=== PATIENT | male | born 1930 | race Caucasian/White ===

== ENCOUNTER 2018-06-01 05:14 | Day surgery (SDC) | payer MEDICARE ==
[2018-05-31 11:24] VITALS: BMI 22.8
[2018-06-01 09:00] VITALS: TEMP 97.9
[2018-06-01 11:54] VITALS: BP 130/91; PULSE 63
[2018-06-01 12:27] LABS: INR 1.23 (0.83-1.09); PROTHROMBIN TIME (PATIENT) 14.6 SEC (9.7-13.0)
--- NOTE | 2018-06-04 16:52 | PATH ---
Surgical Pathology Report Patient Name: PRINCE BLANK [facility]. Rec. #: [id number] /Age/Gender: 1930 (Age: 87) / M Account: [id number] Location: U-ENDOSCOPY Taken: 06/01/2018 Received: 06/01/2018 Reported: 06/04/2018 Physicians: Nelson England M.D. Specimen(s) Received A: BX 2ND DUODENUM AND DUODENAL BULB B: BX ANTRUM C: BX PROXIMAL TRANSVERSE COLON POLYPS D: BX ILEOCECAL VALVE POLYP Clinical History Weight loss, occult bleeding, colon cancer screening Postoperative diagnosis: Hiatal hernia, AVM, multiple colon polyps Final Diagnosis A. SECOND PORTION DUODENUM AND DUODENUM BULB, BIOPSY: DUODENUM MUCOSA WITH NONSPECIFIC CHRONIC DUODENITIS. B. ANTRUM, BIOPSY: GASTRIC MUCOSA WITH REACTIVE GASTROPATHY. IMMUNOSTAIN FOR H. PYLORI IS NEGATIVE. NEGATIVE FOR INTESTINAL METAPLASIA. C. PROXIMAL TRANSVERSE COLON POLYPS, POLYPECTOMY: TUBULAR ADENOMA, MULTIPLE. D. ILEOCECAL VALVE POLYP, BIOPSY: TUBULOVILLOUS ADENOMA. NO HIGH GRADE DYSPLASIA IN THIS MATERIAL. Electronically Signed Hoa Win M.D. Gross Description A. Received in formalin, labeled "biopsy second portion of duodenum and duodenal bulb" are 2 buckner, irregular portions of soft tissue averaging 0.2 cm. in greatest dimension. The specimens are submitted in toto in one cassette. B. Received in formalin, labeled "biopsy antrum" are 2 buckner, irregular portions of soft tissue averaging 0.4 cm. in greatest dimension. The specimens are submitted in toto in one cassette. C. Received in formalin labeled "biopsy proximal transverse colon polyps," is a 0.9 x 0.7 x 0.2 cm aggregate of buckner soft tissue fragments. The formalin is filtered and the specimen is entirely submitted in one cassette. D. Received in formalin, labeled "biopsy ileocecal valve" are 3 buckner, irregular portions of soft tissue ranging from 0.1-0.5 cm. in greatest dimension. The specimens are submitted in toto in one cassette. DL06/01/2018 saudi06/01/2018
== END 2018-06-01 11:52 | disposition home or self-care (01) ==
LOC: JASU-ENDO 05:14
PROVIDERS: ATTEND Internal Medicine Gastroenterology
PROC: 0DBE8ZX Excision of Large Intestine, Via Natural or Artificial Opening Endoscopic, Diagnostic (ICD-10-PCS; 2018-06-01)
PROC: 0DBL8ZX Excision of Transverse Colon, Via Natural or Artificial Opening Endoscopic, Diagnostic (ICD-10-PCS; 2018-06-01)
PROC: 0DBE8ZX Excision of Large Intestine, Via Natural or Artificial Opening Endoscopic, Diagnostic (ICD-10-PCS; 2018-06-01)
PROC: 3E0H8GC Introduction of Other Therapeutic Substance into Lower GI, Via Natural or Artificial Opening Endoscopic (ICD-10-PCS; 2018-06-01)
PROC: 0DB68ZX Excision of Stomach, Via Natural or Artificial Opening Endoscopic, Diagnostic (ICD-10-PCS; 2018-06-01)
PROC: 0DBC8ZX Excision of Ileocecal Valve, Via Natural or Artificial Opening Endoscopic, Diagnostic (ICD-10-PCS; principal; 2018-06-01 08:00)
DX: Z12.11 Encounter for screening for malignant neoplasm of colon (principal); D12.6 Benign neoplasm of colon, unspecified; D12.3 Benign neoplasm of transverse colon; K57.30 Diverticulosis of large intestine without perforation or abscess without bleeding; K64.8 Other hemorrhoids; K92.1 Melena; K29.80 Duodenitis without bleeding; K44.9 Diaphragmatic hernia without obstruction or gangrene
CPT/HCPCS: 36415; 82378; 82728; 85044; 85610; 86140; 88305-TC; 88342-TC

== ENCOUNTER 2019-02-01 14:46 | Inpatient (IN) | payer MEDICARE ==
[2019-02-01 15:33] VITALS: BMI 21.2
--- NOTE | 2019-02-01 15:33 | PDOC ---
Attending Attestation - Resident Resident Name: Benji Lopez - ED Attending Attestation I have performed the following: I have examined & evaluated the patient, The case was reviewed & discussed with the resident, I agree w/resident's findings & plan, Exceptions are as noted - HPI HPI: 02/01/19 17:36 Mr. Yeung is a didi 88yo man with PMH R leg stent, HTN, Arthritis (on prednisone) presenting with a complaint of severe back pain s/p mechanical fall from standing 2 days ago. Pt is ambulatory with the assistance of a walker and while walking, his walker got stuck and he fell to the ground landing on his right side He has been unable to walk since 2/2 the pain. Pain is severe, on the right lower back, rated 10/10, does not improve with Tylenol Denies hitting his head or LOC - Physicial Exam PE: 02/01/19 17:39 Gen: WDWN elderly man, appears stated age, laying in stretcher HEENT: PERRL, MMM, EOMI, NCAT, small abrasion on right face near eye CV: RRR, nl s1/s2, no murmurs / rubs / gallops Pulm: CTABL, normal WOB, no pain with breathin Abd: soft, nontender, nondistended Ext: WWP, no clubbing / cyanosis / edema MSK: 5+ strength UE/LE, no pain with straight leg raise to 60 degrees Back: posterior rib pain Neuro: normal sensation throughout including b/l LE, CN grossly intact, alert and oriented - Medical Decision Making 02/01/19 17:35 Laboratory Tests 02/01/19 02/01/19 02/01/19 16:35 16:35 16:35 WBC 8.7 Hgb 11.4 L Hct 34.7 L Plt Count 266 INR 3.43 H Anion Gap 6 L BUN 22.4 H Creatinine 1.1 Urine Blood Urine Nitrite Ur Leukocyte Esterase 02/01/19 17:00 WBC Hgb Hct Plt Count INR Anion Gap BUN Creatinine Urine Blood Negative Urine Nitrite Negative Ur Leukocyte Esterase Negative EKG - NSR rate of 66 bpm, LBBB CT pending Signed out to overnight team
[2019-02-01] MEDS ORDERED: morphine CARPU-JECT 4 MG/1 ML DISP.SYRIN IVPUSH ONE (15:40)
--- NOTE | 2019-02-01 15:51 | PDOC ---
History of Present Illness - General Chief Complaint: Injury Stated Complaint: FALL Time Seen by Provider: 02/01/19 15:12 History Source: Patient, Friend Exam Limitations: No Limitations - History of Present Illness Initial Comments: 02/01/19 15:44 Source: Pt and friend HPI: 88yo man with PMH R leg stent, HTN, Arthritis presenting s/p mechanical fall from standing 40 hours ago. Pt ambulates with a walker, was moving into his bedroom two nights ago when his walker got caught and he well to the ground landing on his right flank. Reports the he has been unable to walk since 2/2 the pain. Has not left the house since the injury. Pain is severe, on the right lower back, and has poorly responded to Tylenol. Of note, patient has been on prednisone for the past 2 years for his arthritis. Denies urinary or fecal incontinence, no numbness or tingling, no weakness, no sensory deficits / saddle anesthesia. Denies hitting his head or LOC, however he does have an abrasion on the right side of his face that occurred during the fall. All: KNDA, reports that he felt ill when using codeine after a dental procedure , denies anaphylaxis Meds: - Coumadin - Atorvastatin - Prednisone 15mg PMH: as above PSH: denies SHx: denies smoking, drinking, illicits, lives at home with his Past History - Travel Traveled outside of the country in the last 30 days: No Close contact w/someone who was outside of country & ill: No - Past Medical History Allergies/Adverse Reactions: Allergies Allergy/AdvReac Type Severity Reaction Status Date / Time codeine AdvReac Nausea Verified 02/01/19 15:22 Home Medications: Ambulatory Orders Nebivolol HCl [Bystolic] 5 mg PO DAILY 10/01/14 predniSONE [Deltasone -] 15 mg PO AM 10/01/14 Atorvastatin Ca [Lipitor] 20 mg PO HS 03/25/16 Cholecalciferol (Vitamin D3) [Vitamin D3 -] 1,000 unit PO DAILY 03/25/16 Zinc 1 tab PO DAILY 05/31/18 Docusate Sodium [Stool Softener] 100 mg PO BID 02/01/19 Warfarin Na [Coumadin] 2.5 mg PO DAILY@1800 02/01/19 Anemia: No Asthma: No 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) Cardiac Disorders: Yes (SOB ON EXERTION/SEEN BY CARDIO RECENTLY) CVA: No COPD: Yes (USES O2 PRN DURING EXERCISE) CHF: No Dementia: No Diabetes: No GI Disorders: No Disorders: Yes (PROSTATE DIAG X 3 MONTHS AGO) HTN: Yes Hypercholesterolemia: Yes Liver Disease: No Seizures: No Thyroid Disease: No - Surgical History Abdominal Surgery: No Appendectomy: No Cardiac Surgery: No Cholecystectomy: No Lung Surgery: No Neurologic Surgery: No Orthopedic Surgery: No - Suicide/Smoking/Psychosocial Hx Smoking History: Unknown if ever smoked Have you smoked in the past 12 months: No Information on smoking cessation initiated: No Hx Alcohol Use: No Drug/Substance Use Hx: No Substance Use Type: Alcohol Hx Substance Use Treatment: No Review of Systems - Review of Systems Able to Perform ROS?: Yes Is the patient limited Maori proficient: No Constitutional: No: Chills, Fever, Weakness HEENTM: No: Eye Pain, Nose Congestion, Throat Pain, Throat Swelling, Mouth Pain Respiratory: No: Cough, Shortness of Breath, Wheezing Cardiac (ROS): No: Chest Pain, Irregular Heart Rate, Palpitations, Syncope, Chest Tightness ABD/GI: No: Abdominal Distended, Constipated, Diarrhea, Nausea, Poor Appetite, Poor Fluid Intake, Vomiting : No: Burning, Dysuria, Discharge, Frequency, Flank Pain Musculoskeletal: Yes: See HPI, Back Pain, Muscle Pain. No: Muscle Weakness Integumentary: No: Bruising, Change in Hair/Nails, Dryness, Erythema, Pruritus, Rash Neurological: No: Headache, Numbness, Paresthesia, Tingling, Weakness Psychiatric: No: Anxiety, Depression, Emotional Problems Endocrine: No: Excessive Sweating, Flushing, Intolerance to Cold, Intolerance to Heat Hematologic/Lymphatic: No: Anemia, Blood Clots, Easy Bleeding All Other Systems: Reviewed and Negative *Physical Exam - Vital Signs Last Vital Signs Temp Pulse Resp BP Pulse Ox 97.4 F L 60 16 161/76 100 02/01/19 14:50 02/01/19 14:50 02/01/19 14:50 02/01/19 14:50 02/01/19 14:50 - Physical Exam Comments: 02/01/19 15:54 Vitals reviewed, notable for hypertension, otherwise stable Gen: WDWN elderly man, appears stated age, laying in stretcher HEENT: PERRL, MMM, EOMI, NCAT, small abrasion on right face near eye CV: RRR, nl s1/s2, no murmurs / rubs / gallops Pulm: CTABL, normal WOB, no pain with breathing, no wheezes / rales / rhonchi Abd: soft, nontender, nondistended Ext: WWP, no clubbing / cyanosis / edema Pulses: 2+ radial and PT MSK: 5+ strength UE/LE, no pain with straight leg raise to 60 degrees Back: exam deferred until attending present and pain controlled Neuro: normal sensation throughout including b/l LE, CN grossly intact, alert and oriented ED Treatment Course - LABORATORY CBC & Chemistry Diagram: 02/01/19 16:35 02/01/19 16:35 Medical Decision Making - Medical Decision Making 02/01/19 15:57 88yo man with PMH R leg stent, HTN, Arthritis presenting s/p mechanical fall from standing 40 hours ago. History reassuring for lack of neurologic symptoms, concerning for inability to ambulate and poor pain control with tylenol, prolonged steroid use. Exam notable for no neurologic abnormalities, negative straight leg raise test. Together concerning for fracture vs muscle spasm / sprain / tear. -Morphine 4mg for pain control -CBC, CMP, CP -EKG -Non-contrast: Head, C-Spine, Chest, Abdomen, Pelvis 02/01/19 17:20 -Patient responded well to morphine -On exam of the back: tenderness to palpation of right lower ribs, no midline spinal tenderness, no paraspinal tenderness, no overlying bruising or ecchymosis -EKG with new LBBB from prior, patient without any chest pain now or recently -Troponin 0.03 -No leukocytosis or metabolic derangements -Patient discloses cancer history "All of the cancers" history of skin cancer, current workup for questionable bladder mass 02/01/19 19:00 -Patient reports pain is returning, unable to ambulate following CT - difficulty moving onto scanner -Admit for: inability to ambulate, intractable back pain -Ready for admission pending CT results, reached out to inpatient team -Pt signed out to Dr. Martin *DC/Admit/Observation/Transfer Diagnosis at time of Disposition: Intractable back pain - Discharge Dispostion Condition at time of disposition: Guarded - Referrals - Patient Instructions - Post Discharge Activity
[2019-02-01 16:46] LABS: BASO % 0.4 % (0-2.0); EOS % 0.4 % (0-4.5); HEMATOCRIT 34.7 % (35.4-49); HEMOGLOBIN 11.4 GM/dL (11.7-16.9); LYMPH % 6.6 % (8-40); MCH 29.5 pg (25.7-33.7); MCHC 32.8 g/dl (32.0-35.9); MEAN CELL VOLUME 90.1 fl (80-96); MEAN PLT VOLUME 7.5 fl (7.5-11.1); MONO % 4.1 % (3.8-10.2); NEUT % 88.5 % (42.8-82.8); PLATELET COUNT 266 K/MM3 (134-434); RBC 3.85 M/mm3 (4.00-5.60); RDW 17.7 % (11.9-15.9); WHITE BLOOD COUNT 8.7 K/mm3 (4.0-10.0)
[2019-02-01] MEDS ORDERED: morphine SULFATE 4 MG/ML VIAL ONE (16:50)
[2019-02-01 17:12] LABS: PH,URINE 6.5 (5.0-8.0); URINE APPEARANCE CLEAR; URINE BILIRUBIN NEGATIVE (NEGATIVE); URINE COLOR YELLOW; URINE GLUCOSE (UA) NEGATIVE (NEGATIVE); URINE KETONE NEGATIVE (NEGATIVE); URINE LEUK ESTERASE NEGATIVE (NEGATIVE); URINE NITRITE NEGATIVE (NEGATIVE); URINE PROTEIN NEGATIVE (NEGATIVE); URINE UROBILINOGEN 0.2 mg/dL (0.2-1.0)
[2019-02-01 17:14] LABS: INR 3.43 (0.83-1.09)
[2019-02-01 17:21] LABS: ALBUMIN 3.1 g/dl (3.4-5.0); BILIRUBIN,TOTAL 0.8 mg/dL (0.2-1); BLOOD UREA NITROGEN 22.4 mg/dL (7-18); CREATININE 1.1 mg/dL (0.55-1.3); TOT PROT 6.8 g/dl (6.4-8.2)
[2019-02-01 17:22] LABS: POTASSIUM 4.2 mmol/L (3.5-5.1)
--- NOTE | 2019-02-01 19:19 | PN ---
Teaching Attending Note Name of Resident: Filiberto Garay ATTENDING PHYSICIAN STATEMENT I saw and evaluated the patient. I reviewed the resident's note and discussed the case with the resident. I agree with the resident's findings and plan as documented. SUBJECTIVE: Patient is an 88 year old man with PMH of Right leg stent, HTN, Arthritis (on prednisone), ?Aortic valve replacement (on coumadin) presenting with a complaint of severe back pain after a mechanical fall from standing 2 days ago. Patient is ambulatory with the assistance of a walker and while walking, his walker got stuck and he fell to the ground landing on his right side. He has been unable to walk since due to the pain. Pain is severe, on the right lower back, rated 10/10, does not improve with Tylenol. Denies hitting his head or LOC. Of note, patient has been on prednisone for the past 2 years for his arthritis. Denies urinary or fecal incontinence, no numbness or tingling, no weakness, no sensory deficits/saddle anesthesia. He has an abrasion on the right side of his face that occurred during the fall. OBJECTIVE: Alert Vital Signs Period Temp Pulse Resp BP Sys/Scott Pulse Ox Last 24 Hr 97.4 F-97.5 F 60-62 16-20 161-192/76-86 97-100 HEENT: No Jaundice, eye redness or discharge, PERRLA, EOMI. Normocephalic, abrasion right side of face. External ears are normal and hearing is grossly intact. No nasal discharge. Neck: Supple, nontender. No palpable adenopathy or thyromegaly. No JVD Chest: Good effort. Clear to auscultation. Right lateral lower chest tenderness. Heart: Regular. No S3, rub or murmur Abdomen: Not distended, soft, right flank tenderness and no HSM. No rebound or guarding. Normal bowel sounds. Ext: Peripheral pulses intact. No leg edema. Skin: Warm and dry. No petechiae, rash or ecchymosis. Neuro: Alert. Oriented x3. CN 2-12 grossly intact. Sensation grossly intact in all four extremities and DTR are symmetric. Ambulates with assistance. Psych: Appropriate mood and affect. Good insight. Home Medications Medication Instructions Recorded Nebivolol HCl [Bystolic] 5 mg PO DAILY 10/01/14 predniSONE [Deltasone -] 15 mg PO AM 10/01/14 Atorvastatin Ca [Lipitor] 20 mg PO HS 03/25/16 Cholecalciferol (Vitamin D3) 1,000 unit PO DAILY 03/25/16 [Vitamin D3 -] Zinc 1 tab PO DAILY 05/31/18 Docusate Sodium [Stool Softener] 100 mg PO BID 02/01/19 Warfarin Na [Coumadin] 2.5 mg PO DAILY@1800 02/01/19 Abnormal Lab Results 02/01/19 02/01/19 02/01/19 16:35 16:35 16:35 RBC 3.85 L Hgb 11.4 L Hct 34.7 L RDW 17.7 H Neutrophils % 88.5 H D Lymphocytes % 6.6 L D PT with INR 41.00 H INR 3.43 H Anion Gap 6 L BUN 22.4 H Random Glucose 109 H Albumin 3.1 L ASSESSMENT AND PLAN: 1. 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 No acute pathology on head and C -spine CT. Will use IV morphine and lidocaine patch to control rib fracture pain , do incentive spirometry, consult PT and Ortho. Implement fall precautions. Will continue comprehensive care of all his comorbid conditions including coumadin for artificial aortic valve. 2. Hypoalbuminemia - Possibly due to combined effects of malnutrition and inflammation associated with comorbid chronic conditions. Will ensure adequate dietary protein intake and also consult nuclear worker technician. 3. Anemia - Cause unclear. Will do basic anemia work up including serial stool guaiacs, reticulocyte count and iron studies. 4. Uncontrolled hypertension - Likely exacerbated by pain and prednisone. Will add HCTZ 12.5 mg q am and give Bystolic 5mg at night. 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 Nonpharmacologic measures to control hypertension like weight loss, salt restriction and exercise discussed. Importance of adherence to treatment regimen and attainment of normotension emphasized. 5. DVT prophylaxis - On coumadin 6. Advance directives - Full code
[2019-02-01] MEDS ORDERED: MORPHINE SULFATE 2 MG/ML VIAL IVPUSH PRN (21:15)
--- NOTE | 2019-02-01 21:39 | HP ---
CHIEF COMPLAINT: R side pain PCP: Dr. Haro HISTORY OF PRESENT ILLNESS: Patient is an 88 yo M with a PMHx of Polymyalgia rhematica (15mg Prednisone), COPD (on PRN o2), s/p Aortic valve replacement (on Coumadin), s/p pacemaker placement, presenting to the ED because of a mechanical fall that occurred on Monday (01/30) morning. Patient said he has had multiple falls over the last year from feeling weak and clumsy. He denies symptoms prior to the fall, including dizziness, chest pain, loc, numbness, tingling. He said since the fall , he's had R sided Flank pain/lower back pain. Says tylenol did not help. He also says he has a hard time ambulating since the fall. He walks with a walker. 4mg of morphine was given and patient felt some relief. Patient fell and hit his head. denies LOC. Denies fevers,chills, nausea, vomiting,chest pain. Head CT in the ER was unremarkable. C-spine CT unremarkable. Patient was found to have R 7,8, and [address] Recent Travel: denies PAST MEDICAL HISTORY: per HPI Social History: Smoking: denies Alcohol: denies Drugs: denies Family History: Allergies codeine Adverse Reaction (Verified 02/01/19 15:22) Nausea HOME MEDICATIONS: Home Medications Medication Instructions Recorded Nebivolol HCl [Bystolic] 5 mg PO DAILY 10/01/14 predniSONE [Deltasone -] 15 mg PO AM 10/01/14 Atorvastatin Ca [Lipitor] 20 mg PO HS 03/25/16 Cholecalciferol (Vitamin D3) 1,000 unit PO DAILY 03/25/16 [Vitamin D3 -] Zinc 1 tab PO DAILY 05/31/18 Docusate Sodium [Stool Softener] 100 mg PO BID 02/01/19 Warfarin Na [Coumadin] 2.5 mg PO DAILY@1800 02/01/19 REVIEW OF SYSTEMS CONSTITUTIONAL: Absent: fever, chills, diaphoresis, generalized weakness, malaise, loss of appetite, weight change HEENT: Absent: rhinorrhea, nasal congestion, throat pain, throat swelling, difficulty swallowing, mouth swelling, ear pain, eye pain, visual changes CARDIOVASCULAR: Absent: chest pain, syncope, palpitations, irregular heart rate, lightheadedness , peripheral edema RESPIRATORY: sob at baseline Absent: cough, dyspnea with exertion, orthopnea, wheezing, stridor, hemoptysis GASTROINTESTINAL: Absent: abdominal pain, abdominal distension, nausea, vomiting, diarrhea, constipation, melena, hematochezia GENITOURINARY: Absent: dysuria, frequency, urgency, hesitancy, hematuria, flank pain, genital pain MUSCULOSKELETAL: Absent: myalgia, arthralgia, joint swelling, back pain, neck pain NEUROLOGIC: Absent: headache, focal weakness or paresthesias, dizziness, unsteady gait, seizure, mental status changes, bladder or bowel incontinence PHYSICAL EXAMINATION Vital Signs - 24 hr 02/01/19 02/01/19 14:50 19:50 Temperature 97.4 F L 97.5 F L Pulse Rate 60 Pulse Rate [ 62 Right Radial] Respiratory 16 20 Rate Blood Pressure 161/76 Blood Pressure 192/86 H [Left Arm] O2 Sat by Pulse 100 97 Oximetry (%) GENERAL: in nad, watching tv, appears comfortable HEAD: small laceration above R eye near mosque EYES: Pupils equal, round and reactive to light EARS, NOSE, THROAT:oropharynx clear without exudates. Moist mucous membranes. NECK: supple without lymphadenopathy, JVD, or masses. LUNGS: CTA b/l HEART: RRR, No MGR ABDOMEN: Soft, nontender, not distended MUSCULOSKELETAL: R Flank tenderness to palpation. R sided rib tenderness LOWER EXTREMITIES: 2+ pulses, warm, No peripheral edema. NEUROLOGICAL: Cranial nerves II-XII intact. Normal speech. Laboratory Results - last 24 hr 02/01/19 02/01/19 02/01/19 16:35 16:35 16:35 WBC 8.7 RBC 3.85 L Hgb 11.4 L Hct 34.7 L MCV 90.1 MCH 29.5 MCHC 32.8 RDW 17.7 H Plt Count 266 MPV 7.5 Absolute Neuts (auto) 7.7 Neutrophils % 88.5 H D Lymphocytes % 6.6 L D Monocytes % 4.1 Eosinophils % 0.4 D Basophils % 0.4 Nucleated RBC % 0 PT with INR 41.00 H INR 3.43 H Sodium 136 Potassium 4.2 Chloride 102 Carbon Dioxide 28 Anion Gap 6 L BUN 22.4 H Creatinine 1.1 Est GFR (CKD-EPI)AfAm 70.08 Est GFR (CKD-EPI)NonAf 60.46 Random Glucose 109 H Calcium 9.0 Total Bilirubin 0.8 AST 29 ALT 31 Alkaline Phosphatase 72 Creatine Kinase 81 Troponin I 0.03 Total Protein 6.8 Albumin 3.1 L Urine Color Urine Appearance Urine pH Ur Specific [place] Urine Protein Urine Glucose (UA) Urine Ketones Urine Blood Urine Nitrite Urine Bilirubin Urine Urobilinogen Ur Leukocyte Esterase ASSESSMENT/PLAN: 88 yo M with a PMHx of Polymyalgia rhematica (15mg Prednisone), COPD (on PRN o2) , s/p Aortic valve replacement (on Coumadin), presenting to the ED because of a mechanical fall # R sided Rib fractures s/p Mechanical Fall -7,8,10th R Rib fractures -ortho consulted -Incentive spirometer -PT -Morphine 2mg q4h for pain control -Head CT negative -consider repeating Head CT in 24 hours. Patient on Coumadin. #s/p Aortic valve replacement -on warfarin, continue -INR 2.5-3.5? Currently 3.43 #PMR -cont. steroids #HTN -cont. home meds #FEN -no iv fluids -monitor lytes -sodium diet med-rec needed #DVT -on coumadin Visit type - Emergency Visit Emergency Visit: Yes ED Registration Date: 02/01/19 Care time: The patient presented to the Emergency Department on the above date and was hospitalized for further evaluation of their emergent condition. - New Patient This patient is new to me today: Yes Date on this admission: 02/03/19 - Critical Care Critical Care patient: No ATTENDING PHYSICIAN STATEMENT I saw and evaluated the patient. I reviewed the resident's note and discussed the case with the resident. I agree with the resident's findings and plan as documented. SUBJECTIVE: OBJECTIVE: ASSESSMENT AND PLAN:
[2019-02-01] MEDS ORDERED: HEPARIN NA (PORCINE) 5,000 UNITS/ML 1ML VIAL SQ SCH (22:00)
[2019-02-02] MEDS: predniSONE 5 MG TABLET (UD) PO SCH (06:00)
[2019-02-02] MEDS ORDERED: PT OWN MED DRAWER 7, Y5N ONE (09:46)
[2019-02-02] MEDS: CHOLECALCIFEROL (VIT D3) 1,000 UNIT (25 MCG) TABLET PO SCH (09:48)
[2019-02-02] MEDS: NEBIVOLOL 5 MG TABLET (FP) PO SCH (09:48)
[2019-02-02] MEDS ORDERED: DOCUSATE SODIUM 100 MG CAPSULE (FP) PO SCH (10:00)
[2019-02-02 10:16] LABS: BASO % 0.5 % (0-2.0); EOS % 0.6 % (0-4.5); HEMATOCRIT 36.7 % (35.4-49); HEMOGLOBIN 12.1 GM/dL (11.7-16.9); LYMPH % 9.5 % (8-40); MCH 29.5 pg (25.7-33.7); MEAN CELL VOLUME 89.4 fl (80-96); MEAN PLT VOLUME 7.9 fl (7.5-11.1); MONO % 5.8 % (3.8-10.2); NEUT % 83.6 % (42.8-82.8); PLATELET COUNT 271 K/MM3 (134-434); RBC 4.11 M/mm3 (4.00-5.60)
[2019-02-02 10:46] LABS: ALBUMIN 3.3 g/dl (3.4-5.0); BLOOD UREA NITROGEN 21.9 mg/dL (7-18); CALCIUM 9.2 mg/dL (8.5-10.1); MAGNESIUM 2.2 mg/dL (1.8-2.4); POTASSIUM 3.9 mmol/L (3.5-5.1); TOT PROT 7.1 g/dl (6.4-8.2)
--- NOTE | 2019-02-02 12:14 | CONSULT ---
Consult - text type - Consultation Consultation Note: ORTHOPEDIC SURGERY CONSULTATION NOTE Department of Orthopedic Surgery HISTORY OF PRESENT ILLNESS Mr. Yeung is a 88 year old male with PMH of Right leg stent, HTN, Arthritis ( on prednisone), ?Aortic valve replacement (on coumadin) presenting with a complaint of severe back pain after a mechanical fall from standing 2 days ago. Patient is ambulatory with the assistance of a walker at home. He was not using his walker when this incidient occured. He has been unable to walk since due to the pain. Pain is severe, on the right lower back, but improved since admission and pain control. The orthopedic service was consulted for right sided posterior rib fractures.The patient denies any numbness / tingling in his lower extremities. His pain improves with rest. Denies any other injuries. Denies LOC. Denies numbness, tingling or other constitutional complaints. Denies tobacco use, drug use, alcohol abuse. The patient lives with his at home, and uses a walker occasionally as assistive device at baseline. FAMILY HISTORY non-contributory REVIEW OF SYMPTOMS A twelve-point review of systems was performed and was negative except as noted in HPI. PHYSICAL EXAM Constitutional: Alert and oriented to person, place, and time. Appears well- developed and well-nourished. No acute distress, appropriate mood and affect. Superficial abrasion and bruising noted at the patient's right spiritism. Right Upper Extremity: Skin warm, dry, and intact; no lesions, rashes or ulcers noted. Muscle mass equal and symmetric to contralateral side. No atrophy noted. No masses or effusions noted. No tenderness to palpation all joints; nontender throughout rest of extremity. Full passive and active ROM, free from pain. Joints stable with no pathologic laxity. M/R/U/MSK/AX motor intact; SILT distally; 2+ radial pulses; Cap refill brisk. Tone and reflexes normal. Left Upper Extremity: Skin warm, dry, and intact; no lesions, rashes or ulcers noted. Muscle mass equal and symmetric to contralateral side. No atrophy noted. No masses or effusions noted. No tenderness to palpation all joints; nontender throughout rest of extremity. Full passive and active ROM, free from pain. Joints stable with no pathologic laxity. M/R/U/MSK/AX motor intact; SILT distally; 2+ radial pulses; Cap refill brisk. Tone and reflexes normal. Right Lower Extremity: Skin warm, dry, and intact; no lesions, rashes or ulcers noted. Muscle mass equal and symmetric to contralateral side. No atrophy noted. No masses or effusions noted. No tenderness to palpation all joints; nontender throughout rest of extremity. No cords or calf tenderness No significant calf/ankle edema. Full passive and active ROM, free from pain. Joints stable with no pathologic laxity. EHL/TA/GS motor intact; SILT distally; 2+ DP pulses; Cap refill brisk. Tone and reflexes normal. Able to SLR, negative log roll test. Left Lower Extremity: Skin warm, dry, and intact; no lesions, rashes or ulcers noted. Muscle mass equal and symmetric to contralateral side. No atrophy noted. No masses or effusions noted. No tenderness to palpation all joints; nontender throughout rest of extremity. No cords or calf tenderness No significant calf/ankle edema. Full passive and active ROM, free from pain. Joints stable with no pathologic laxity. EHL/TA/GS motor intact; SILT distally; 2+ DP pulses; Cap refill brisk. Tone and reflexes normal. Able to SLR, negative log roll test. Back: No step offs, No tenderness of C,T,L,S spinous processes. There is no tenderness to palpation of his paraspinal musculature. There is tenderness over the posterior aspect of his 7th,8th,and 10th ribs. 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 History of Recent Travel No Allergies Allergy/AdvReac Type Severity Reaction Status Date / Time codeine AdvReac Nausea Verified 02/01/19 15:22 Active Medications Generic Name Dose Route Start Last Admin Trade Name Freq PRN Reason Stop Dose Admin Atorvastatin Calcium 20 mg 02/02/19 22:00 Lipitor - PO HS [facility] Cholecalciferol 1,000 unit 02/02/19 10:00 02/02/19 09:48 Vitamin D3 - PO 1,000 unit DAILY JO[facility] Administration Docusate Sodium 100 mg 02/02/19 10:00 02/02/19 09:48 Colace - PO Not Given BID [facility] Morphine Sulfate 2 mg 02/01/19 21:15 02/02/19 04:20 Morphine Sulfate IVPUSH 2 mg Q4H PRN Administration PAIN LEVEL 6-10 Nebivolol 5 mg 02/02/19 10:00 02/02/19 09:48 Bystolic - PO 5 mg DAILY JO[facility]LINE Administration Prednisone 15 mg 02/02/19 07:00 02/02/19 06:00 Deltasone - PO 15 mg AM JOSELINE Administration Warfarin Sodium 2.5 mg 02/02/19 18:00 Coumadin - PO DAILY@1800 [facility] Vital Signs (last) Temp Pulse Resp BP Pulse Ox 98.1 F 77 18 150/76 97 02/02/19 09:05 02/02/19 09:05 02/02/19 09:05 02/02/19 09:05 02/02/19 09:00 Intake and Output 01/31/19 02/01/19 02/02/19 23:59 23:59 23:59 Intake Total 0 720 Balance 0 720 Intake: IV 0 Saline Lock 0 IVPB 0 Oral 0 720 Other: Voiding Method Toilet Toilet Bowel Movement No No Weight 150 lb Height 5 ft 10.5 in Body Mass Index (BMI) 21.2 Laboratory 02/02/19 08:50 02/02/19 08:50 PT with INR 41.00 SEC (9.7-13.0) H 02/01/19 16:35 IMAGING I personally reviewed all radiographs, CT, and other imaging. They demonstrate right sided 7th, 8th, and 10th rib fractures. ASSESSMENT AND PLAN Mr. Yeung is a 88 year old male presenting status post mechanical fall with a right sided 7th, 8th, and 10th posterior rib fracture. We have reviewed the imaging and clinical findings in detail, as well as their potential implications. After appropriate informed discussion, we agreed on the following plan: - Pain Control (avoiding NSAID medications, minimize narcotic use) - DVT ppx mgt. - WBAT / Physical therapy - Continue medical management and workup - Recommend SCDs to b/l LE while in bed, especially when subtherapeutic INR - No further orthopedic surgical management at this time. All questions were answered. Thank you for involving our team in the care of this patient. Please have patient follow up in our office in 1-2 weeks [phone].
[2019-02-02] MEDS ORDERED: ACETAMINOPHEN 325 MG TABLET (FP) PO PRN (12:29)
[2019-02-02] MEDS ORDERED: traMADol HCL 50 MG TABLET PO PRN (12:30)
[2019-02-02 12:36] LABS: INR 2.81 (0.83-1.09); PROTHROMBIN TIME (PATIENT) 33.5 SEC (9.7-13.0)
--- NOTE | 2019-02-02 12:43 | PN ---
Physical Exam: SUBJECTIVE: Patient seen and examined, reports some rib pain with deep breath in the back, also right flank pain. Denies any pain with arm or leg movements. Confirms episodes as mechanical fall. No complaints otherwise. OBJECTIVE: Vital Signs Period Temp Pulse Resp BP Sys/Scott Pulse Ox Last 24 Hr 97.4 F-98.1 F 60-87 16-20 150-192/76-87 97-100 Intake & Output 01/30/19 01/31/19 02/01/19 02/02/19 23:59 23:59 23:59 23:59 Intake Total 0 720 Balance 0 720 Weight 150 lb GENERAL: sitting in bed in no acute distress Neck: soft, supple, no JVD HEENT: PERRL, EOMI CVS:S1s2 regular Chest: decreased air entry all over, no rales or wheezing, tenderness over right posterior rib cage, no crepitus appreciated Abdomen;soft, NT, ND musculoskeletal: no spinal point tenderness, right paraspinal spasm, SLR neg bother LE, full ROm bilateral shoulder/elbow, hip/knees and ankles Neuro: AAOx3, facial symmetry, speech normal, tongue midline moves all extremities freely, gait deferred Psych: pleasant, co-operative Laboratory Results - last 24 hr 02/01/19 02/01/19 02/01/19 16:35 16:35 16:35 WBC 8.7 RBC 3.85 L Hgb 11.4 L Hct 34.7 L MCV 90.1 MCH 29.5 MCHC 32.8 RDW 17.7 H Plt Count 266 MPV 7.5 Absolute Neuts (auto) 7.7 Neutrophils % 88.5 H D Lymphocytes % 6.6 L D Monocytes % 4.1 Eosinophils % 0.4 D Basophils % 0.4 Nucleated RBC % 0 PT with INR 41.00 H INR 3.43 H Sodium 136 Potassium 4.2 Chloride 102 Carbon Dioxide 28 Anion Gap 6 L BUN 22.4 H Creatinine 1.1 Est GFR (CKD-EPI)AfAm 70.08 Est GFR (CKD-EPI)NonAf 60.46 Random Glucose 109 H Calcium 9.0 Phosphorus Magnesium Total Bilirubin 0.8 AST 29 ALT 31 Alkaline Phosphatase 72 Creatine Kinase 81 Troponin I 0.03 Total Protein 6.8 Albumin 3.1 L Urine Color Urine Appearance Urine pH Ur Specific [place] Urine Protein Urine Glucose (UA) Urine Ketones Urine Blood Urine Nitrite Urine Bilirubin Urine Urobilinogen Ur Leukocyte Esterase 02/01/19 02/02/19 02/02/19 17:00 08:50 08:50 WBC 9.0 RBC 4.11 Hgb 12.1 Hct 36.7 MCV 89.4 MCH 29.5 MCHC 33.0 RDW 18.0 H Plt Count 271 MPV 7.9 Absolute Neuts (auto) 7.5 Neutrophils % 83.6 H Lymphocytes % 9.5 D Monocytes % 5.8 Eosinophils % 0.6 Basophils % 0.5 Nucleated RBC % 0 PT with INR INR Sodium 136 Potassium 3.9 Chloride 98 Carbon Dioxide 29 Anion Gap 8 BUN 21.9 H Creatinine 1.0 Est GFR (CKD-EPI)AfAm 78.64 Est GFR (CKD-EPI)NonAf 67.85 Random Glucose 127 H Calcium 9.2 Phosphorus 3.0 Magnesium 2.2 Total Bilirubin 1.0 AST 23 ALT 29 Alkaline Phosphatase 71 Creatine Kinase Troponin I Total Protein 7.1 Albumin 3.3 L Urine Color Yellow Urine Appearance Clear Urine pH 6.5 Ur Specific [place] 1.014 Urine Protein Negative Urine Glucose (UA) Negative Urine Ketones Negative Urine Blood Negative Urine Nitrite Negative Urine Bilirubin Negative Urine Urobilinogen 0.2 Ur Leukocyte Esterase Negative Active Medications Generic Name Dose Route Start Last Admin Trade Name Freq PRN Reason Stop Dose Admin Acetaminophen 650 mg 02/02/19 12:29 Tylenol - PO Q6H PRN PAIN LEVEL 1-5 Atorvastatin Calcium 20 mg 02/02/19 22:00 Lipitor - PO HS [facility] Cholecalciferol 1,000 unit 02/02/19 10:00 02/02/19 09:48 Vitamin D3 - PO 1,000 unit DAILY [facility] Administration Docusate Sodium 100 mg 02/02/19 14:00 Colace - PO TID [facility] Nebivolol 5 mg 02/02/19 10:00 02/02/19 09:48 Bystolic - PO 5 mg DAILY [facility] Administration Polyethylene Glycol 17 gm 02/03/19 10:00 Miralax (For Daily Use) - PO DAILY [facility] Prednisone 15 mg 02/02/19 07:00 02/02/19 06:00 Deltasone - PO 15 mg AM [facility] Administration Tramadol HCl 50 mg 02/02/19 12:30 Ultram - PO Q6H PRN PAIN LEVEL 6-10 Warfarin Sodium 2.5 mg 02/02/19 18:00 Coumadin - PO DAILY@[address] chest/A/P/head/C-spine/rib xray results and images reviewed ASSESSMENT/PLAN: 88 yom with PMhx of Polymyalgia rhematica (15mg Prednisone), COPD (on PRN o2), s /p Aortic valve replacement (on Coumadin), s/p pacemaker admitted with recurrent falls, right rib fractures and right low back pain. 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 Imaging reviewed Incentive spirometry. pain control with tylenol/flexeril/tramadol. Bowel regimen. PT eval Continue home coumadin/prednisone/statin DVTPPX therapeutic on coumadin Dispo may benefit from SNF. Anticipate in 24-48 hours if no new events and disposition arranged. Discussed with patient and nursing, all questions answered. Visit type - Emergency Visit Emergency Visit: Yes ED Registration Date: 02/01/19 Care time: The patient presented to the Emergency Department on the above date and was hospitalized for further evaluation of their emergent condition. - New Patient This patient is new to me today: Yes Date on this admission: 02/02/19 - Critical Care Critical Care patient: No - Discharge Referral Referred to [facility] Med P.C.: No
[2019-02-02] MEDS: CYCLOBENZAPRINE HCL 5 MG TABLET PO SCH ×2 (13:54→23:02)
[2019-02-02] MEDS: DOCUSATE SODIUM 100 MG CAPSULE (FP) PO SCH ×2 (13:55→22:58)
--- NOTE | 2019-02-02 15:06 | EKG ---
Test Reason : Blood Pressure : / mmHG Vent. Rate : 066 BPM Atrial Rate : 066 BPM P-R Int : 136 ms QRS Dur : 154 ms QT Int : 474 ms P-R-T Axes : 039 -39 114 degrees QTc Int : 496 ms NORMAL SINUS RHYTHM LEFT ATRIAL ENLARGEMENT LEFT AXIS DEVIATION LEFT BUNDLE BRANCH BLOCK ABNORMAL ECG Confirmed by MD DEBRA, MORRO ([id number]) on 02/02/2019 3:06:05 PM Referred By: Confirmed By:MORRO RICHARDSON MD
[2019-02-02] MEDS: WARFARIN NA 2.5 MG TABLET (FP) PO SCH (17:45)
[2019-02-02] MEDS ORDERED: WARFARIN NA 2.5 MG TABLET (FP) PO SCH (18:00)
[2019-02-02] MEDS: traMADol HCL 50 MG TABLET PO PRN (18:02)
[2019-02-02] MEDS: ATORVASTATIN CA 20 MG TABLET (FP) PO SCH (23:02)
[2019-02-03] MEDS: DOCUSATE SODIUM 100 MG CAPSULE (FP) PO SCH ×3 (07:00→22:42)
[2019-02-03] MEDS: predniSONE 5 MG TABLET (UD) PO SCH (08:00)
[2019-02-03 08:14] LABS: HEMATOCRIT 36.3 % (35.4-49); MCH 29.4 pg (25.7-33.7); MCHC 32.9 g/dl (32.0-35.9); MEAN CELL VOLUME 89.2 fl (80-96); MEAN PLT VOLUME 7.8 fl (7.5-11.1); PLATELET COUNT 245 K/MM3 (134-434); RBC 4.07 M/mm3 (4.00-5.60); RDW 17.7 % (11.9-15.9); WHITE BLOOD COUNT 9.5 K/mm3 (4.0-10.0)
[2019-02-03 09:20] LABS: INR 2.51 (0.83-1.09); PROTHROMBIN TIME (PATIENT) 29.9 SEC (9.7-13.0)
[2019-02-03] MEDS ORDERED: PT OWN MED DRAWER 7, Y5N ONE (10:06)
[2019-02-03] MEDS: POLYETHYLENE GLYCOL 3350 119 GM BTL PO SCH (10:17)
[2019-02-03] MEDS: CYCLOBENZAPRINE HCL 5 MG TABLET PO SCH ×2 (10:17→21:47)
[2019-02-03] MEDS: NEBIVOLOL 5 MG TABLET (FP) PO SCH (10:17)
[2019-02-03] MEDS: CHOLECALCIFEROL (VIT D3) 1,000 UNIT (25 MCG) TABLET PO SCH (10:17)
--- NOTE | 2019-02-03 15:36 | PN ---
Physical Exam: SUBJECTIVE: Patient seen and examined, low back pain better. Irritable, not fully participating in the interview OBJECTIVE: Vital Signs Period Temp Pulse Resp BP Sys/Scott Pulse Ox Last 24 Hr 98.0 F-98.3 F 65-79 18-20 145-165/72-80 Intake & Output 01/31/19 02/01/19 02/02/19 02/03/19 23:59 23:59 23:59 23:59 Intake Total 0 1600 100 Output Total 300 Balance 0 1300 100 Weight 150 lb GENERAL: sitting in bed in no acute distress Neck: soft, supple, no JVD HEENT: PERRL, EOMI CVS:S1s2 regular Chest: decreased air entry all over, no rales or wheezing, tenderness over right posterior rib cage, no crepitus appreciated Abdomen;soft, NT, ND musculoskeletal: no spinal point tenderness, right paraspinal spasm improved, SLR neg bother LE, full ROm bilateral shoulder/elbow, hip/knees and ankles Neuro: AAOx3, facial symmetry, speech normal, tongue midline moves all extremities freely, gait deferred Psych: pleasant, co-operative Laboratory Results - last 24 hr 02/03/19 02/03/19 06:55 06:55 WBC 9.5 RBC 4.07 Hgb 12.0 Hct 36.3 MCV 89.2 MCH 29.4 MCHC 32.9 RDW 17.7 H Plt Count 245 MPV 7.8 PT with INR 29.90 H INR 2.51 H Active Medications Generic Name Dose Route Start Last Admin Trade Name Freq PRN Reason Stop Dose Admin Acetaminophen 650 mg 02/02/19 12:29 02/02/19 23:00 Tylenol - PO 650 mg Q6H PRN Administration PAIN LEVEL 1-5 Atorvastatin Calcium 20 mg 02/02/19 22:00 02/02/19 23:02 Lipitor - PO 20 mg HS [facility] Administration Cholecalciferol 1,000 unit 02/02/19 10:00 02/03/19 10:17 Vitamin D3 - PO 1,000 unit DAILY [facility] Administration Cyclobenzaprine HCl 5 mg 02/02/19 12:45 02/03/19 10:17 Cyclobenzaprine Hcl PO 5 mg BID [facility] Administration Docusate Sodium 100 mg 02/02/19 14:00 02/03/19 14:20 Colace - PO Not Given TID [facility] Nebivolol 5 mg 02/02/19 10:00 02/03/19 10:17 Bystolic - PO 5 mg DAILY [facility] Administration Polyethylene Glycol 17 gm 02/03/19 10:00 02/03/19 10:17 Miralax (For Daily Use) - PO 17 gm DAILY [facility] Administration Prednisone 15 mg 02/02/19 07:00 02/03/19 08:00 Deltasone - PO 15 mg AM [facility] Administration Tramadol HCl 50 mg 02/02/19 12:43 02/02/19 18:02 Ultram - PO 50 mg Q8H PRN Administration PAIN LEVEL 6-10 Warfarin Sodium 2.5 mg 02/02/19 18:00 02/02/19 17:45 Coumadin - PO 2.5 mg DAILY@1800 JO[facility] Administration ASSESSMENT/PLAN: 88 yom with PMhx of Polymyalgia rhematica (15mg Prednisone), COPD (on PRN o2), s /p Aortic valve replacement (on Coumadin), s/p pacemaker admitted with recurrent falls, right rib fractures and right low back pain. 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 Imaging reviewed Incentive spirometry. pain control with tylenol/flexeril/tramadol. Bowel regimen. PT eval Continue home coumadin/prednisone/statin DVTPPX therapeutic on coumadin Dispo may benefit from SNF. Anticipate in 24-48 hours if no new events and disposition arranged. Discussed with patient and nursing, all questions answered. Visit type - Emergency Visit Emergency Visit: Yes ED Registration Date: 02/01/19 Care time: The patient presented to the Emergency Department on the above date and was hospitalized for further evaluation of their emergent condition. - New Patient This patient is new to me today: No - Critical Care Critical Care patient: No - Discharge Referral Referred to [facility] Med P.C.: No
[2019-02-03] MEDS: WARFARIN NA 2.5 MG TABLET (FP) PO SCH (18:31)
[2019-02-03] MEDS: ATORVASTATIN CA 20 MG TABLET (FP) PO SCH (21:47)
[2019-02-03] MEDS: traMADol HCL 50 MG TABLET PO PRN (21:47)
[2019-02-04] MEDS: predniSONE 5 MG TABLET (UD) PO SCH (06:31)
[2019-02-04] MEDS: DOCUSATE SODIUM 100 MG CAPSULE (FP) PO SCH ×3 (06:32→21:17)
[2019-02-04 07:30] LABS: INR 2.7 (0.83-1.09); PROTHROMBIN TIME (PATIENT) 32.2 SEC (9.7-13.0)
[2019-02-04] MEDS ORDERED: PT OWN MED DRAWER 7, Y5N ONE (09:20)
[2019-02-04] MEDS: CHOLECALCIFEROL (VIT D3) 1,000 UNIT (25 MCG) TABLET PO SCH (09:30)
[2019-02-04] MEDS: CYCLOBENZAPRINE HCL 5 MG TABLET PO SCH ×2 (09:30→21:16)
[2019-02-04] MEDS: NEBIVOLOL 5 MG TABLET (FP) PO SCH (09:30)
[2019-02-04] MEDS: POLYETHYLENE GLYCOL 3350 119 GM BTL PO SCH (09:32)
--- NOTE | 2019-02-04 09:33 | PN ---
Progress Note (short form) - Note Progress Note: Hospitalist to document today. Angry at being here and not at home and his cognitive issues are heightened with his being out of his own home. I emphasized to him that he has to focus on his performance with PT today to determine if he is safe to go home VS rehab.
--- NOTE | 2019-02-04 12:50 | PN ---
Physical Exam: SUBJECTIVE: Patient seen and examined, angry at being the hospital. motivate about working with PT. OBJECTIVE: Vital Signs Period Temp Pulse Resp BP Sys/Scott Pulse Ox Last 24 Hr 97.4 F-98.5 F 70-76 18-18 142-163/71-89 Intake & Output 02/01/19 02/02/19 02/03/19 02/04/19 23:59 23:59 23:59 23:59 Intake Total 0 1600 1560 690 Output Total 300 400 Balance 0 1300 1160 690 Weight 150 lb GENERAL: sitting in bed in no acute distress Neck: soft, supple, no JVD HEENT: PERRL, EOMI CVS:S1s2 regular Chest: decreased air entry all over, no rales or wheezing, tenderness over right posterior rib cage, no crepitus appreciated Abdomen;soft, NT, ND musculoskeletal: no spinal point tenderness, right paraspinal spasm improved, SLR neg bother LE, full ROm bilateral shoulder/elbow, hip/knees and ankles Neuro: AAOx2, facial symmetry, speech normal, tongue midline moves all extremities freely, gait deferred Psych: pleasant, co-operative Laboratory Results - last 24 hr 02/04/19 05:30 PT with INR 32.20 H INR 2.70 H Active Medications Generic Name Dose Route Start Last Admin Trade Name Freq PRN Reason Stop Dose Admin Acetaminophen 650 mg 02/02/19 12:29 02/02/19 23:00 Tylenol - PO 650 mg Q6H PRN Administration PAIN LEVEL 1-5 Atorvastatin Calcium 20 mg 02/02/19 22:00 02/03/19 21:47 Lipitor - PO 20 mg HS [facility] Administration Cholecalciferol 1,000 unit 02/02/19 10:00 02/04/19 09:30 Vitamin D3 - PO 1,000 unit DAILY [facility] Administration Cyclobenzaprine HCl 5 mg 02/02/19 12:45 02/04/19 09:30 Cyclobenzaprine Hcl PO 5 mg BID [facility] Administration Docusate Sodium 100 mg 02/02/19 14:00 02/04/19 06:32 Colace - PO Not Given TID [facility] Nebivolol 5 mg 02/02/19 10:00 02/04/19 09:30 Bystolic - PO 5 mg DAILY [facility] Administration Polyethylene Glycol 17 gm 02/03/19 10:00 02/04/19 09:32 Miralax (For Daily Use) - PO 17 gm DAILY [facility] Administration Prednisone 15 mg 02/02/19 07:00 02/04/19 06:31 Deltasone - PO 15 mg AM [facility] Administration Tramadol HCl 50 mg 02/02/19 12:43 02/03/19 21:47 Ultram - PO 50 mg Q8H PRN Administration PAIN LEVEL 6-10 Warfarin Sodium 2.5 mg 02/02/19 18:00 02/03/19 18:31 Coumadin - PO 2.5 mg DAILY@1800 [facility] Administration ASSESSMENT/PLAN: 88 yom with PMhx of Polymyalgia rhematica (15mg Prednisone), COPD (on PRN o2), s /p Aortic valve replacement (on Coumadin), s/p pacemaker admitted with recurrent falls, right rib fractures and right low back pain. 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 Imaging reviewed Incentive spirometry. pain control with tylenol/flexeril/tramadol. Bowel regimen. PT eval Continue home coumadin/prednisone/statin Suspect underlying mild cognitive impairment compounded by pain, currently being in hospital and . QTc 496, avoid meds. frequent orientation to environment, pain control, encourage ambulation and plan for dc when arrangements made. DVTPPX therapeutic on coumadin Dispo may benefit from SNF. Anticipate when arrangements made Discussed with patient and nursing, all questions answered. Visit type - Emergency Visit Emergency Visit: Yes ED Registration Date: 02/01/19 Care time: The patient presented to the Emergency Department on the above date and was hospitalized for further evaluation of their emergent condition. - New Patient This patient is new to me today: No - Critical Care Critical Care patient: No - Discharge Referral Referred to [facility] Med P.C.: No
[2019-02-04] MEDS ORDERED: LIDOCAINE HCL 1%, 10 MG/ML (20ML VIAL) ONE (13:55)
[2019-02-04] MEDS: WARFARIN NA 2.5 MG TABLET (FP) PO SCH (17:12)
[2019-02-04] MEDS: LIDOCAINE 5% TOPICAL PATCH TP SCH (17:37)
[2019-02-04] MEDS: ATORVASTATIN CA 20 MG TABLET (FP) PO SCH (21:16)
[2019-02-04] MEDS ORDERED: LIDOCAINE PATCH REMOVAL MC SCH (22:00)
[2019-02-05] MEDS: traMADol HCL 50 MG TABLET PO PRN (01:43)
[2019-02-05] MEDS: DOCUSATE SODIUM 100 MG CAPSULE (FP) PO SCH ×2 (06:00→15:29)
[2019-02-05] MEDS: predniSONE 5 MG TABLET (UD) PO SCH (06:00)
[2019-02-05 06:20] VITALS: TEMP 98.2
[2019-02-05 07:08] LABS: INR 3.38 (0.83-1.09); PROTHROMBIN TIME (PATIENT) 40.4 SEC (9.7-13.0)
[2019-02-05] MEDS ORDERED: PT OWN MED DRAWER 7, Y5N ONE (09:31)
[2019-02-05] MEDS: CHOLECALCIFEROL (VIT D3) 1,000 UNIT (25 MCG) TABLET PO SCH (09:41)
[2019-02-05] MEDS: POLYETHYLENE GLYCOL 3350 119 GM BTL PO SCH (09:41)
[2019-02-05] MEDS: CYCLOBENZAPRINE HCL 5 MG TABLET PO SCH (09:41)
[2019-02-05] MEDS: NEBIVOLOL 5 MG TABLET (FP) PO SCH (09:41)
[2019-02-05] MEDS: LIDOCAINE 5% TOPICAL PATCH TP SCH (09:42)
--- NOTE | 2019-02-05 10:50 | PN ---
Progress Note (short form) - Note Progress Note: Hospitalist to document today. Patient still having difficulties with balance and safe ambulation but is mentally clearer today. He is now agreeable with SNF placement. Social Service notified.
--- NOTE | 2019-02-05 11:16 | DS ---
Physical Exam: SUBJECTIVE: Patient seen and examined, working with PT, pain better. pleasant today. OBJECTIVE: Vital Signs Period Temp Pulse Resp BP Sys/Scott Pulse Ox Last 24 Hr 97.6 F-98.4 F 61-74 18-20 131-143/61-76 PHYSICAL EXAM GENERAL: sitting in bed in no acute distress Neck: soft, supple, no JVD HEENT: PERRL, EOMI CVS:S1s2 regular Chest: decreased air entry all over, no rales or wheezing, tenderness over right posterior rib cage, no crepitus appreciated Abdomen;soft, NT, ND musculoskeletal: no spinal point tenderness, right paraspinal spasm improved, SLR neg bother LE, full ROm bilateral shoulder/elbow, hip/knees and ankles Neuro: AAOx2, facial symmetry, speech normal, tongue midline moves all extremities freely, gait deferred Psych: pleasant, co-operative LABS Laboratory Results - last 24 hr 02/05/19 06:30 PT with INR 40.40 H INR 3.38 H HOSPITAL COURSE: Date of Admission:02/01/19 Date of Discharge: 02/05/19 Minutes to complete discharge: 42 Discharge Summary Reason For Visit: INTRACTABLE BACK PAIN Current Active Problems Intractable back pain (Acute) Hospital Course: 88 yom with PMhx of Polymyalgia rhematica (15mg Prednisone), COPD (on PRN home oxygen), s/p Aortic valve replacement (on Coumadin), s/p pacemaker admitted with recurrent falls, right rib fractures and right low back pain. He was seen by orthopedic and recommended conservative management. He was placed on flexeril /lidocaine patch and prn tramadol with improvement. He was evaluated by physical therapy and recommended rehab. His coumadin was dosed per INR readings, his INR on discharge is 3.38 and his coumadin will be held today with follow up INR tomorrow at the rehab and further dosing accordingly. He was incidentally found with soft tissue nodule in anterior mediastinum, enlarged lymph node vs thymoma which will need to be followed with PCP. He will be discharged to SNF in stable condition. Condition: Stable - Instructions Diet, Activity, Other Instructions: You were admitted with fall and right lower back rib fractures. You were placed on pain medications and seen by orthopedic. You were evaluated by physical therapy and recommended rehab. MEDICATIONS: HOLD COUMADIN TODAY. INR CHECK TOMORROW 02/06/2019 AT THE REHAB, THEN DOSE ACCORDINGLY. (INR GOAL 2.0-3.0) Tramadol and flexeril as directed as needed for pain. Taper as symptoms improve. Bowel regimen as directed. Continue other medications as before INSTRUCTIONS: Do not take coumadin today, have INR check tomorrow and further dosing based on the INR reading (INR goal 2.0-3.0) Tramadol and flexeril as directed to be taken only as needed. Taper these medications as symptoms improve. Do not take them if dizzy, sleepy. No driving, operating heavy machinery or taking important decisions alone while on these medications. Aggressive Incentive spirometry every 1 hour as able while awake. Bowel regimen You have soft tissue nodule on mediastinum on CT scan which will need to be followed with Dr. Haro. FOLLOW UP: INR check on 02/06/2019 Follow up with Orthopedic Dr. Holden in 1-[address] Haro in 1 week of discharge from rehab (soft tissue nodule on mediastinum, which will need to be followed with Dr. Haro when out of rehab). If you notice severe pain, fevers, chills, cough, trouble breathing or any new concerns, please call 911 or come to the ED. Referrals: Willie Haro MD [Primary Care Provider] - Parish Holden DO [Staff Physician] - 2 Weeks Disposition: [facility] - Home Medications Comprehensive Discharge Medication List: Ambulatory Orders Nebivolol HCl [Bystolic] 5 mg PO DAILY 10/01/14 predniSONE [Deltasone -] 15 mg PO AM 10/01/14 Atorvastatin Ca [Lipitor] 20 mg PO HS 03/25/16 Cholecalciferol (Vitamin D3) [Vitamin D3 -] 1,000 unit PO DAILY 03/25/16 Zinc 1 tab PO DAILY 05/31/18 Docusate Sodium [Stool Softener] 100 mg PO BID 02/01/19 Acetaminophen [Tylenol .Regular Strength -] 650 mg PO Q6H PRN tablet 02/05/19 Cyclobenzaprine HCl 5 mg PO BID PRN tablet 02/05/19 Lidocaine 5% Patch [Lidoderm -] 1 patch TP DAILY patch 02/05/19 Polyethylene Glycol 3350 [Miralax 119 gm Btl -] 17 gm PO DAILY bottle 02/05/19 Warfarin Na [Coumadin -] 2.5 mg PO ASDIR #1 tab 02/05/19 traMADol HCL [Ultram -] 50 mg PO Q8H PRN #5 tablet MDD 150 mg 02/05/19 This patient is new to me today: No Emergency Visit: Yes ED Registration Date: 02/01/19 Care time: The patient presented to the Emergency Department on the above date and was hospitalized for further evaluation of their emergent condition. Critical Care patient: No - Discharge Referral Referred to [facility] Med P.C.: No
[2019-02-05 12:02] VITALS: BP 115/54; PULSE 75
== END 2019-02-05 17:02 | DRG 184 ==
LOC: JER 14:46 → JERBED 19:04 → J6S 22:40
PROVIDERS: ADMIT Internal Medicine; ATTEND Hospitalist
DX: S22.41XA Multiple fractures of ribs, right side, initial encounter for closed fracture (principal); E46 Unspecified protein-calorie malnutrition; I10 Essential (primary) hypertension; M19.90 Unspecified osteoarthritis, unspecified site; E88.09 Other disorders of plasma-protein metabolism, not elsewhere classified; J44.9 Chronic obstructive pulmonary disease, unspecified; M35.3 Polymyalgia rheumatica; J84.10 Pulmonary fibrosis, unspecified; R25.2 Cramp and spasm; D64.9 Anemia, unspecified; M62.830 Muscle spasm of back; W19.XXXA Unspecified fall, initial encounter; Y93.9 Activity, unspecified; Y92.89 Other specified places as the place of occurrence of the external cause; Y99.9 Unspecified external cause status
CPT/HCPCS: 36415; 70450-TC; 71101-TC-RT-FY; 71250-TC; 72125-TC; 74176-TC; 80053; 81003; 82550; 83735; 84100; 84484; 85025; 85027; 85610; 93005; 93010; 94010; 97116-GP; 97162-GP; 99282-25

== ENCOUNTER 2019-03-14 14:56 | Inpatient (IN) | payer OTHER, MEDICARE ==
[2019-03-14] MEDS ORDERED: HALOPERIDOL LACTATE 5 MG/ML IM ONE (16:34)
--- NOTE | 2019-03-14 16:38 | PDOC ---
History of Present Illness <Nena Vaz - Last Filed: 03/14/19 18:46> - General History Source: Patient, Family ( arrived at bedside after initial interview.), Old Records, Primary Care Provider Exam Limitations: Clinical Condition, Dementia - History of Present Illness Initial Comments: HPI: 88 y/o male presenting to [facility] ER complaining of Transported from home via EMS on telephone recommendations of Dr. Veliz. Pt denies complaints at the time of interview. He is unable to give a clear reason for his visit. Called Dr. Veliz for further information. He reported the visiting home nurse found the pt's blood pressure to be elevated above 200 systolic. The pt' s further reported to Dr. Veliz that the pt has become paranoid and is refusing to leave his bed and/or groom. Dr. Veliz endorses that he himself has observed the pt becoming more forgetful and more cantacous over the past several months. Dr. Veliz is concerned that the is unable to care for the pt at home. Of note, the pt was evaluated in this department in Jan 2019 for a fall at home. Sustained fractures of 7th, 8th, and 10th ribs. Color Control Operator: Dr. Joseph Medical Hx: - A-fib on Coumadin - Aortic stenosis s/p TVAR at [facility] - CAD s/p PCI 2017 - R leg stent - HTN - HLD - Arthritis - RA Review of Systems: In addition to that documented in the HPI above, the additional ROS was obtained : Constitutional- Denies fevers or chills Head- Denies vision changes ENMT- Denies sore throat CV- Denies chest pain Resp- Denies SOB GI- Denies vomiting or diarrhea - Endorses chronic problems with frequent urination. Denies hematuria or dysuria. MSK- Denies recent trauma Skin- Denies new rashes Neuro- Denies new numbness or tingling or weakness Endocrine- Denies polyuria Heme- Denies bleeding or bruising Physical Examination: Constitutional- Elderly adult male in no acute distress or obvious discomfort. Found semi-fowlers on hospital bed. Answered all questions appropriately and completely. Head- Normocephalic. No obvious external signs of trauma. Cardiovascular / Chest- Irregularly irregular rate and rhythm. Systolic murmur. No rubs, clicks, or gallops. Peripheral pulses- radial pulses full. Trace pretibial edema bilaterally. Respiratory- Breathing unlabored. Speaking in complete sentences without difficulty. Equal chest rise and fall. Clear to auscultation bilaterally. No stridor, no wheezing, no rhonchi. Gastrointestinal- abdomen is soft, non-tender, non-distended. Neuro- Alert and oriented x4. Moving all four extremities spontaneously. Skin- Warm, dry, and intact. Psych- Affect- withdrawn and quick to anger. Speech was non-labored, non- pressured. Malodorous. MDM: *Reviewed vital signs, nursing notes, and prior visit documentation (if available). 88 y/o male presenting with worsening AMS and aggressive behavior. Afebrile. Vitals unremarkable for hypotension or tachycardia. Physical exam as described above. Suspect possible normal pressure hydrocephalus given behavioral changes, h/o of recent falls, and enlarged ventricles on HCT. Further suspect progression of dementia. Labs unremarkable for derangement. UA unremarkable. ED Attending discussed case with admitting hospitalist team for further AMS evaluation. 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) Cardiac Disorders: Yes (SOB ON EXERTION/SEEN BY CARDIO RECENTLY) CVA: No COPD: Yes (USES O2 PRN DURING EXERCISE) CHF: No Dementia: No Diabetes: No GI Disorders: No Disorders: Yes (PROSTATE DIAG X 3 MONTHS AGO) HTN: Yes Hypercholesterolemia: Yes Liver Disease: No Seizures: No Thyroid Disease: No - Surgical History Abdominal Surgery: No Appendectomy: No Cardiac Surgery: No Cholecystectomy: No Lung Surgery: No Neurologic Surgery: No Orthopedic Surgery: No - Psycho Social/Smoking Cessation Hx Smoking History: Never smoked Have you smoked in the past 12 months: No Hx Alcohol Use: Yes (RARE) Drug/Substance Use Hx: No Substance Use Type: Alcohol Hx Substance Use Treatment: No <Lamberto Ward - Last Filed: 03/14/19 19:16> - Past Medical History Allergies/Adverse Reactions: Allergies Allergy/AdvReac Type Severity Reaction Status Date / Time codeine AdvReac Nausea Verified 03/14/19 16:38 Home Medications: Ambulatory Orders Nebivolol HCl [Bystolic] 5 mg PO DAILY 10/01/14 predniSONE [Deltasone -] 15 mg PO AM 10/01/14 Atorvastatin Ca [Lipitor] 20 mg PO HS 03/25/16 Cholecalciferol (Vitamin D3) [Vitamin D3 -] 1,000 unit PO DAILY 03/25/16 Docusate Sodium [Stool Softener] 100 mg PO BID 02/01/19 Acetaminophen [Tylenol .Regular Strength -] 650 mg PO Q6H PRN tablet 02/05/19 Warfarin Na [Coumadin -] 2.5 mg PO ASDIR #1 tab 02/05/19 *Physical Exam - Vital Signs Last Vital Signs Temp Pulse Resp BP Pulse Ox 97.8 F 68 18 177/93 H 96 03/14/19 18:00 03/14/19 18:00 03/14/19 18:00 03/14/19 18:00 03/14/19 18:00 <Nena Vaz - Last Filed: 03/14/19 18:46> - Vital Signs Last Vital Signs Temp Pulse Resp BP Pulse Ox 97.8 F 78 18 168/94 100 03/14/19 15:15 03/14/19 15:15 03/14/19 15:15 03/14/19 15:15 03/14/19 15:15 <Lamberto Ward - Last Filed: 03/14/19 19:16> ED Treatment Course - LABORATORY CBC & Chemistry Diagram: 03/14/19 16:30 03/14/19 16:30 - ADDITIONAL ORDERS Additional order review: Laboratory Results 03/14/19 03/14/19 03/14/19 16:30 16:30 16:03 PT with INR 24.80 H INR 2.09 H PTT (Actin FS) 32.8 Sodium 139 Potassium 4.0 Chloride 105 Carbon Dioxide 25 Anion Gap 9 BUN 16.9 Creatinine 0.9 Est GFR (CKD-EPI)AfAm 89.32 Est GFR (CKD-EPI)NonAf 77.06 Random Glucose 111 H Calcium 9.0 Total Bilirubin 0.6 AST 21 ALT 24 Alkaline Phosphatase 82 Total Protein 6.8 Albumin 3.3 L Urine Color Yellow Urine Appearance Clear Urine pH 5.5 Ur Specific [place] 1.019 Urine Protein Trace Urine Glucose (UA) Negative Urine Ketones Negative Urine Blood Negative Urine Nitrite Negative Urine Bilirubin Negative Urine Urobilinogen 0.2 Ur Leukocyte Esterase Negative 03/14/19 16:30 RBC 3.79 L MCV 91.5 MCHC 31.8 L RDW 17.5 H MPV 7.9 Neutrophils % 89.3 H Lymphocytes % 6.0 L D Monocytes % 2.6 L Eosinophils % 0.0 D Basophils % 2.1 H D - Medications Given in the ED: ED Medications Discontinued Medications Generic Name Dose Route Start Last Admin Trade Name Freq PRN Reason Stop Dose Admin Haloperidol 5 mg 03/14/19 16:34 03/14/19 17:57 Haldol Injection (Fast Acting) - IM 03/14/19 16:35 Not Given ONCE ONE <Nena Vaz - Last Filed: 03/14/19 18:46> - LABORATORY CBC & Chemistry Diagram: 03/14/19 16:30 03/14/19 16:30 - RADIOLOGY Radiology Studies Ordered: Category Date Time Status HEAD CT WITHOUT CONTRAST [CT] Stat CT Scan 03/14/19 15:33 Ordered <Lamberto Ward - Last Filed: 03/14/19 19:16> Discharge - Discharge Information Problems reviewed: Yes - Admission Yes <Nena Vaz - Last Filed: 03/14/19 18:46> <Lamberto Ward - Last Filed: 03/14/19 19:16> - Discharge Information Clinical Impression/Diagnosis: Altered mental status, Agitation Condition: Guarded - Patient Discharge Instructions - Post Discharge Activity
[2019-03-14 16:49] LABS: BASO % 2.1 % (0-2.0); HEMATOCRIT 34.7 % (35.4-49); HEMOGLOBIN 11.1 GM/dL (11.7-16.9); MCH 29.1 pg (25.7-33.7); MCHC 31.8 g/dl (32.0-35.9); MEAN CELL VOLUME 91.5 fl (80-96); MEAN PLT VOLUME 7.9 fl (7.5-11.1); MONO % 2.6 % (3.8-10.2); NEUT % 89.3 % (42.8-82.8); PLATELET COUNT 311 K/MM3 (134-434); RBC 3.79 M/mm3 (4.00-5.60); RDW 17.5 % (11.9-15.9); WHITE BLOOD COUNT 7.8 K/mm3 (4.0-10.0)
--- NOTE | 2019-03-14 17:11 | PDOC ---
Attending Attestation - Resident Resident Name: Lamberto Ward - ED Attending Attestation I have performed the following: I have examined & evaluated the patient, The case was reviewed & discussed with the resident, I agree w/resident's findings & plan - HPI HPI: 03/14/19 18:05 88 yom with PMhx of Polymyalgia rheumatica (15mg Prednisone), COPD (on PRN home oxygen), s/p Aortic valve replacement (on Coumadin), s/p pacemaker , NPH Presenting with worsening confusion Home health aide visited him today, found him confused and paranoid. family members noted him to be increasingly waxing and waning with his confusion and increasingly paranoid. Per primary, Dr Haro - sent in to the ED for AMS workup and evaluation. 03/14/19 18:29 - Physicial Exam PE: 03/14/19 18:05 Agree with the resident's HPI and PE as documented in the electronic medical record. NAD, well appearing, confused, cantankerous. easily agitated. EOMI, PERRL, nl conjunctiva, anicteric; neck supple. lungs clear, RRR, abdomen soft nontender. no rebound, guarding. Back nontender. TALLEY x4, no focal neuro deficits. speech clear. No peripheral edema. normal color for ethnicity, WWP. 03/14/19 18:28 03/14/19 18:47 - Medical Decision Making 03/14/19 18:08 Vital Signs Temp Pulse Resp BP Pulse Ox 97.8 F 68 18 177/93 H 96 03/14/19 18:00 03/14/19 18:00 03/14/19 18:00 03/14/19 18:00 03/14/19 18:00 VS reviewed, mildly hypertensive, but also easily agitated. on bystolic in the AM, which he took DDx AMS: infection, UTI, metabolic/electrolyte derangement, encephalopathy, dehydration, CVA Head CT is unremarkable, volume loss and atrophic changes are noted. Electrolytes are normal, baseline with some heme anemia, negative for infection on UA. INR is therapeutic Admit for AMS to hospitalist service, medical management. family unable to care for patient with worsening behavior and confusion, unsafe for discharge. may benefit from psych cs as inpatient, as family requesting for his agitation/ likely progressively worsening dementia 03/14/19 18:47 03/14/19 18:48 Heart Score/ECG Review #1 ECG reviewed & interpreted by me at: 16:35 General ECG Interpretation: Sinus Rhythm, Normal Rate 03/14/19 17:11 rate 67 bpm, sinus rhythm, LBBB, appropriate discordance and nonspecific t wave abnormalities. poor baseline with motion artifact.
[2019-03-14 17:18] LABS: INR 2.09 (0.83-1.09); PROTHROMBIN TIME (PATIENT) 24.8 SEC (9.7-13.0)
[2019-03-14 17:21] LABS: ACTIVATED PTT 32.8 SECONDS (25.2-36.5); ALBUMIN 3.3 g/dl (3.4-5.0); BILIRUBIN,TOTAL 0.6 mg/dL (0.2-1); BLOOD UREA NITROGEN 16.9 mg/dL (7-18); CREATININE 0.9 mg/dL (0.55-1.3); TOT PROT 6.8 g/dl (6.4-8.2)
[2019-03-14 17:21] LABS: PH,URINE 5.5 (5.0-8.0); URINE APPEARANCE CLEAR; URINE BILIRUBIN NEGATIVE (NEGATIVE); URINE COLOR YELLOW; URINE GLUCOSE (UA) NEGATIVE (NEGATIVE); URINE KETONE NEGATIVE (NEGATIVE); URINE LEUK ESTERASE NEGATIVE (NEGATIVE); URINE NITRITE NEGATIVE (NEGATIVE); URINE PROTEIN TRACE (NEGATIVE); URINE UROBILINOGEN 0.2 mg/dL (0.2-1.0)
[2019-03-14] MEDS ORDERED: HALOPERIDOL LACTATE 5 MG/ML IM PRN (17:52)
--- NOTE | 2019-03-14 19:46 | PN ---
Teaching Attending Note Name of Resident: Alicia Smiley ATTENDING PHYSICIAN STATEMENT I saw and evaluated the patient. I reviewed the resident's note and discussed the case with the resident. I agree with the resident's findings and plan as documented. SUBJECTIVE: Patient is an 88 year old man with a PMH of A-fib on Coumadin, Aortic stenosis ( s/p TVAR at [facility]), CAD (s/p PCI 2017), Right leg stent, HTN, HLD and Rheumatoid Arthritis brought to the ER at the urging of his PCP Dr. Veliz. Pt denies complaints at the time of interview. He is unable to give a clear reason for his visit. ER staff called Dr. Veliz for further information. He reported the visiting home nurse found the patient's blood pressure to be elevated above [address] Veliz that the patient has become paranoid and is refusing to leave his bed and/or groom. Dr. Veliz endorses that he himself has observed the patient becoming more forgetful and more cantacnkerous over the past several months. Dr. Veliz is concerned that the is unable to care for the patient at home. Patient was evaluated in the ER in Jan 2019 after a fall at home and found to have fractures of 7th, 8th, and 10th ribs. OBJECTIVE: Alert Vital Signs Period Temp Pulse Resp BP Sys/Scott Pulse Ox Last 24 Hr 97.8 F-97.8 F 68-78 18-18 168-177/93-94 96-100 HEENT: No Jaundice, eye redness or discharge, PERRLA, EOMI. Normocephalic, atraumatic. External ears are normal and hearing is grossly intact. No nasal discharge. Neck: Supple, nontender. No palpable adenopathy or thyromegaly. No JVD Chest: Good effort. Clear to auscultation and percussion. Heart: Regular. No S3, rub or murmur Abdomen: Not distended, soft, nontender and no HSM. No rebound or guarding. Normal bowel sounds. Ext: Peripheral pulses intact. No leg edema. Skin: Warm and dry. No petechiae, rash or ecchymosis. Neuro: Alert. Oriented x3. Intermittently aggressive; CN 2-12 grossly intact. Sensation grossly intact in all four extremities and DTR are symmetric. Psych: Withdrawn; poor judgement; poor remote memory; appropriate. Poor insight. Current Medications Generic Name Dose Route Start Last Admin Trade Name Lee PRN Reason Stop Dose Admin Haloperidol 5 mg 03/14/19 17:52 Haldol Injection (Fast Acting) - IM PRN PRN AGITATION Home Medications Medication Instructions Recorded Nebivolol HCl [Bystolic] 5 mg PO DAILY 10/01/14 predniSONE [Deltasone -] 15 mg PO AM 10/01/14 Atorvastatin Ca [Lipitor] 20 mg PO HS 03/25/16 Cholecalciferol (Vitamin D3) 1,000 unit PO DAILY 03/25/16 [Vitamin D3 -] Docusate Sodium [Stool Softener] 100 mg PO BID 02/01/19 Acetaminophen [Tylenol .Regular 650 mg PO Q6H PRN tablet 02/05/19 Strength -] Warfarin Na [Coumadin -] 2.5 mg PO ASDIR #1 tab 02/05/19 Abnormal Lab Results 03/14/19 03/14/19 03/14/19 16:30 16:30 16:30 RBC 3.79 L Hgb 11.1 L Hct 34.7 L MCHC 31.8 L RDW 17.5 H Neutrophils % 89.3 H Lymphocytes % 6.0 L D Monocytes % 2.6 L Basophils % 2.1 H D PT with INR 24.80 H INR 2.09 H Random Glucose 111 H Albumin 3.3 L ASSESSMENT AND PLAN: 1. AMS/Aggressive behaviour - No obvious electrolyte abnormality or infection to explain behaviour. No evidence of acute intracranial pathology on head CT. EKG shows NSR, LBBB, LAE, LAD and prolonged QTc. Check TSH, phosphate and magnesium levels. Will apply nonpahrmacologic measures initially to keep him calm and avoid haldol and benzodiazepines as much as possible. Consult psychiatry. Will give him melatonin for sleep and implement one-to-one monitoring if indicated. Will continue comprehensive care for all of patients comorbid conditions including coumadin for Afib. 2. Hypoalbuminemia - Possibly due to combined effects of malnutrition and inflammation associated with comorbid chronic conditions. Will ensure adequate dietary protein intake and also consult valver. 3. Anemia - Cause unclear. Will do basic anemia work up including serial stool guaiacs, reticulocyte count and iron studies. 4. Uncontrolled hypertension - Restart suitable outpatient antihypertensive drugs when clinically appropriate. 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 Nonpharmacologic measures to control hypertension like weight loss, salt restriction and exercise discussed. Importance of adherence to treatment regimen and attainment of normotension emphasized. 5. DVT prophylaxis - On coumadin for Afib 6. Advance directives - Full code
[2019-03-14] MEDS ORDERED: LORazepam 0.5 MG TABLET PO ONE (21:10)
[2019-03-14] MEDS ORDERED: WARFARIN NA 2.5 MG TABLET (FP) PO SCH (21:15)
[2019-03-14] MEDS ORDERED: MELATONIN 5 MG TABLETS PO ONE (21:22)
--- NOTE | 2019-03-14 21:22 | HP ---
CHIEF COMPLAINT: agitation and paranoia PCP:Dr Veliz HISTORY OF PRESENT ILLNESS: 88 y/o M with PMH of polymyalgia rheumatica, COPD( no longer on home oxygen),Aortic valve disease s/p replacement (on coumadin), LBBB s/p pacemaker, squamous cell carcinoma s/p MOhs surgery, prostate cancer who was brought in by the because of worsening agitation, paranoia, and refusal to groom. Patient 's discussed her concerns recently with his PCP and Dr. Veliz endorses that he himself has observed the patient becoming more forgetful and more cantankerous over the past several months. Pt and denies any episodes of hallucination or vivid dreaming or change in . The paranoia often entails the use of cellphones by him and others, hidden papers all around the house. Per this morning, pt woke up frantic and pulling everything out of closets in search of "papers". Measured blood pressure by aide showed a blood pressure in the 200/101 mmHg at that time was advised to bring patient to the hospital.The paranoia and agitation is worse in the morning but occurs at night as well. Pt has been experiencing loss of short term memory but remote memory has remained intact. Pt and denied any recent adjustment to the prednisone dose of his polymyalgia Rheumatica. No recent infection or sick contact. Pt was recently admitted for recurrent fall resulting in rib fractures and discharged to acute rehab. Pt denies any dizziness, loss of consciousness, change in vision, change in bowel movement or urination. No recent travels. Pt had recent colonoscopy that revealed over a [address] England; according to pt no intervention was made due to patient's age and comorbidities and family wishes. ER course was notable for: (1)CBC BMP, PT/INR/PTT 24.8,2.09,32.8 (2) head CT negative for acute pathology (3) EKG showed ate 67 bpm, sinus rhythm, LBBB, appropriate discordance and nonspecific t wave abnormalities. PROLONGUED QTC 492 Recent Travel: none PAST MEDICAL HISTORY: as above PAST SURGICAL HISTORY: Mohs surgery FAMILY HISTORY: skin cancer in multiple family members Social History: former smoker SmokinPPD for 15 yrs quit over 50 yrs ago Alcohol: denies Drugs: denies Allergies codeine Adverse Reaction (Verified 10/24/19 16:38) Nausea HOME MEDICATIONS: Home Medications Medication Instructions Recorded Nebivolol HCl [Bystolic] 5 mg PO DAILY 10/01/14 predniSONE [Deltasone -] 10 mg PO AM 10/01/14 Atorvastatin Ca [Lipitor] 20 mg PO HS 03/25/16 Cholecalciferol (Vitamin D3) 1,000 unit PO DAILY 03/25/16 [Vitamin D3 -] Docusate Sodium [Stool Softener] 100 mg PO BID 02/01/19 Acetaminophen [Tylenol .Regular 650 mg PO Q6H PRN tablet 02/05/19 Strength -] Warfarin Na [Coumadin -] 2.5 mg PO ASDIR #1 tab 02/05/19 REVIEW OF SYSTEMS CONSTITUTIONAL: Absent: fever, chills, diaphoresis, generalized weakness, malaise, loss of appetite, weight change HEENT: Absent: rhinorrhea, nasal congestion, throat pain, throat swelling, difficulty swallowing, mouth swelling, ear pain, eye pain, visual changes CARDIOVASCULAR: Absent: chest pain, syncope, palpitations, irregular heart rate, lightheadedness , peripheral edema RESPIRATORY: Absent: cough, shortness of breath, dyspnea with exertion, orthopnea, wheezing, stridor, hemoptysis GASTROINTESTINAL: Absent: abdominal pain, abdominal distension, nausea, vomiting, diarrhea, constipation, melena, hematochezia GENITOURINARY: Absent: dysuria, frequency, urgency, hesitancy, hematuria, flank pain, genital pain MUSCULOSKELETAL: Absent: myalgia, arthralgia, joint swelling, back pain, neck pain SKIN: Absent: rash, itching, pallor HEMATOLOGIC/IMMUNOLOGIC: Absent: easy bleeding, easy bruising, lymphadenopathy, frequent infections ENDOCRINE: Absent: unexplained weight gain, unexplained weight loss, heat intolerance, cold intolerance NEUROLOGIC: Absent: headache, focal weakness or paresthesias, dizziness, unsteady gait, seizure, mental status changes, bladder or bowel incontinence PSYCHIATRIC: anxiety Absent: depression, suicidal or homicidal ideation, hallucinations. PHYSICAL EXAMINATION Vital Signs - 24 hr 03/14/19 03/14/19 03/14/19 15:15 16:20 18:00 Temperature 97.8 F 97.8 F Pulse Rate 78 Pulse Rate [ 68 Left Radial] Respiratory 18 18 Rate Blood Pressure 168/94 Blood Pressure 177/93 H [Right Arm] O2 Sat by Pulse 100 100 96 Oximetry (%) 03/14/19 03/14/19 03/14/19 20:14 20:46 21:20 Temperature 97.2 F L Pulse Rate 63 Pulse Rate [ 67 65 Left Radial] Respiratory 20 18 18 Rate Blood Pressure 162/91 Blood Pressure 174/91 H 172/81 H [Right Arm] O2 Sat by Pulse 95 96 Oximetry (%) GENERAL: Awake, alert, and fully oriented, in mod distress. HEAD: Normal with no signs of trauma. EYES: Pupils equal, round and reactive to light, extraocular movements intact, sclera anicteric, conjunctiva clear. No lid lag. EARS, NOSE, THROAT: oropharynx clear with bluish discoloration and lesion in the mucal membranes. Moist mucous membranes. NECK: Normal range of motion, supple without lymphadenopathy, JVD, or masses. LUNGS: Breath sounds equal, clear to auscultation bilaterally. No wheezes, and no crackles. No accessory muscle use. HEART: Regular rate and rhythm, normal S1 and S2 with AV valve replacement murmur but no rub or gallop. ABDOMEN: Soft, nontender, not distended, normoactive bowel sounds, no guarding, no rebound, no masses. No hepatomegaly or splenomegaly. MUSCULOSKELETAL: Normal range of motion at all joints. No bony deformities or tenderness. No CVA tenderness. UPPER EXTREMITIES: 2+ pulses, warm, well-perfused. No cyanosis. No clubbing. No peripheral edema. LOWER EXTREMITIES: 2+ pulses, warm, well-perfused. No calf tenderness. No peripheral edema. NEUROLOGICAL: Cranial nerves II-XII intact. Normal speech.motor 5/5 in all groups and sensation intact PSYCHIATRIC: Cooperative. Good eye contact. agitated and anxious. MMSE 23/30 SKIN: Warm, dry, normal turgor, seborrheic keratosis and actinic keratosis noted Laboratory Results - last 24 hr 03/14/19 03/14/19 03/14/19 16:03 16:30 16:30 WBC 7.8 RBC 3.79 L Hgb 11.1 L Hct 34.7 L MCV 91.5 MCH 29.1 MCHC 31.8 L RDW 17.5 H Plt Count 311 D MPV 7.9 Absolute Neuts (auto) 7.0 Neutrophils % 89.3 H Lymphocytes % 6.0 L D Monocytes % 2.6 L Eosinophils % 0.0 D Basophils % 2.1 H D Nucleated RBC % 0 PT with INR INR PTT (Actin FS) Sodium 139 Potassium 4.0 Chloride 105 Carbon Dioxide 25 Anion Gap 9 BUN 16.9 Creatinine 0.9 Est GFR (CKD-EPI)AfAm 89.32 Est GFR (CKD-EPI)NonAf 77.06 Random Glucose 111 H Calcium 9.0 Total Bilirubin 0.6 AST 21 ALT 24 Alkaline Phosphatase 82 Total Protein 6.8 Albumin 3.3 L Urine Color Yellow Urine Appearance Clear Urine pH 5.5 Ur Specific [place] 1.019 Urine Protein Trace Urine Glucose (UA) Negative Urine Ketones Negative Urine Blood Negative Urine Nitrite Negative Urine Bilirubin Negative Urine Urobilinogen 0.2 Ur Leukocyte Esterase Negative 03/14/19 16:30 WBC RBC Hgb Hct MCV MCH MCHC RDW Plt Count MPV Absolute Neuts (auto) Neutrophils % Lymphocytes % Monocytes % Eosinophils % Basophils % Nucleated RBC % PT with INR 24.80 H INR 2.09 H PTT (Actin FS) 32.8 Sodium Potassium Chloride Carbon Dioxide Anion Gap BUN Creatinine Est GFR (CKD-EPI)AfAm Est GFR (CKD-EPI)NonAf Random Glucose Calcium Total Bilirubin AST ALT Alkaline Phosphatase Total Protein Albumin Urine Color Urine Appearance Urine pH Ur Specific [place] Urine Protein Urine Glucose (UA) Urine Ketones Urine Blood Urine Nitrite Urine Bilirubin Urine Urobilinogen Ur Leukocyte Esterase ASSESSMENT/PLAN: 88 y/o M with PMH of polymyalgia rheumatica, COPD( no longer on home oxygen),Aortic valve disease s/p replacement (on coumadin), LBBB s/p pacemaker, squamous cell carcinoma s/p MOhs surgery, prostate cancer who was brought in by the because of worsening agitation, paranoia, and refusal to groom and hypertensive. 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 Haldol and quetiapine c/i. giving 1 one of ativan 0.5mg . if continued agitation, vest restraints Psychiatry Dr Castillo consulted pending recommendations one on one observation social work- seems unable to handle care of patient PT to encourage out of bed and prevent deconditioning TSH level to r/o acute Hypertensive crisis BP at home 200/101. in ED, 177/93 -> 168/94 gave one dose of lisinopril 10 mg PO once resuming Bystolic in the AM Normocytic Anemia Basic workup started: iron studies with ferritin stool occult blood retic count B12 and folate level Polymyalgia rheumatica continue prednisone 10 mg as directed Aortic valve replacement cont coumadin DVT already on coumadin Visit type - Emergency Visit Emergency Visit: Yes ED Registration Date: 03/14/19 Care time: The patient presented to the Emergency Department on the above date and was hospitalized for further evaluation of their emergent condition. - New Patient This patient is new to me today: Yes Date on this admission: 03/15/19 - Critical Care Critical Care patient: No ATTENDING PHYSICIAN STATEMENT I saw and evaluated the patient. I reviewed the resident's note and discussed the case with the resident. I agree with the resident's findings and plan as documented. SUBJECTIVE: OBJECTIVE: ASSESSMENT AND PLAN:
[2019-03-14] MEDS: ATORVASTATIN CA 20 MG TABLET (FP) PO SCH (21:25)
[2019-03-14] MEDS: LISINOPRIL 10 MG TABLET (FP) PO SCH (21:25)
[2019-03-15] MEDS: ACETAMINOPHEN 325 MG TABLET (FP) PO PRN (07:21)
[2019-03-15] MEDS: predniSONE 10 MG TABLET (UD) PO SCH (07:22)
[2019-03-15 08:41] LABS: BASO % 0.8 % (0-2.0); EOS % 2.9 % (0-4.5); LYMPH % 33.8 % (8-40); MCH 29.3 pg (25.7-33.7); MCHC 32.2 g/dl (32.0-35.9); MEAN PLT VOLUME 7.8 fl (7.5-11.1); MONO % 9.3 % (3.8-10.2); NEUT % 53.2 % (42.8-82.8); PLATELET COUNT 303 K/MM3 (134-434); RBC 3.73 M/mm3 (4.00-5.60); RDW 17.4 % (11.9-15.9); WHITE BLOOD COUNT 6.5 K/mm3 (4.0-10.0)
[2019-03-15 09:13] LABS: INR 2.29 (0.83-1.09); PROTHROMBIN TIME (PATIENT) 27.3 SEC (9.7-13.0)
[2019-03-15 09:25] LABS: ALBUMIN 2.9 g/dl (3.4-5.0); BILIRUBIN,TOTAL 0.6 mg/dL (0.2-1); BLOOD UREA NITROGEN 16.3 mg/dL (7-18); CALCIUM 8.8 mg/dL (8.5-10.1); CREATININE 0.9 mg/dL (0.55-1.3); PHOSPHOROUS 3.3 mg/dL (2.5-4.9); POTASSIUM 3.6 mmol/L (3.5-5.1)
--- NOTE | 2019-03-15 09:46 | PN ---
Progress Note (short form) - Note Progress Note: Hospitalist to document today. I would also add Neurology MD to consulting MD's in spite of head CT findings as I believe most of his behavior problems have been noted post TAVR and studies have shown the incidence of CVA's post TAVR is not insignificant. I also believe a study was done and demonstrated Head MRI changes on nearly every patient post TAVR even though most patient's were clinically well. I would also consider cognitive problems with behavioral disorder.
[2019-03-15] MEDS: NEBIVOLOL 5 MG TABLET (FP) PO SCH (10:36)
[2019-03-15] MEDS ORDERED: PT OWN MED DRAWER 7, Y5N ONE ×2 (11:24→20:20)
[2019-03-15 13:28] VITALS: BMI 22.1
--- NOTE | 2019-03-15 13:33 | EKG ---
Test Reason : Blood Pressure : / mmHG Vent. Rate : 067 BPM Atrial Rate : 067 BPM P-R Int : 134 ms QRS Dur : 156 ms QT Int : 466 ms P-R-T Axes : 040 -37 096 degrees QTc Int : 492 ms NORMAL SINUS RHYTHM POSSIBLE LEFT ATRIAL ENLARGEMENT LEFT AXIS DEVIATION LEFT BUNDLE BRANCH BLOCK ABNORMAL ECG WHEN COMPARED WITH ECG OF 01-FEB-2019 16:32, NO SIGNIFICANT CHANGE WAS FOUND Confirmed by VITO DELEON MD ([id number]) on 03/15/2019 1:32:37 PM Referred By: Confirmed By:VITO DELEON MD
--- NOTE | 2019-03-15 14:30 | PN ---
Teaching Attending Note Name of Resident: Balaji Juarez ATTENDING PHYSICIAN STATEMENT I saw and evaluated the patient. I reviewed the resident's note and discussed the case with the resident. I agree with the resident's findings and plan as documented. SUBJECTIVE: Confused, mildly agitated, asking for his . No fever/chills. No headache/photophobia. No complaints of pain/nausea/vomiting/diarrhea. OBJECTIVE: Afebrile, Hemodynamically Stable. Last Vital Signs Temp Pulse Resp BP Pulse Ox 98.4 F 60 18 125/67 97 03/15/19 06:53 03/15/19 06:53 03/15/19 09:00 03/15/19 06:53 03/15/19 09:00 HEENT - Atraumatic, Normocephalic. Neuro - AAO x 3. Moving all 4 extremities. Heart - S1, S2, soft SM Lungs - clear to auscultation Abdomen - Soft, non-tender. Bowel Sounds normal. Extremities - no edema, no calf tenderness Laboratory Results - last 24 hr 03/14/19 03/14/19 03/14/19 16:03 16:30 16:30 WBC 7.8 RBC 3.79 L Hgb 11.1 L Hct 34.7 L MCV 91.5 MCH 29.1 MCHC 31.8 L RDW 17.5 H Plt Count 311 D MPV 7.9 Absolute Neuts (auto) 7.0 Neutrophils % 89.3 H Lymphocytes % 6.0 L D Monocytes % 2.6 L Eosinophils % 0.0 D Basophils % 2.1 H D Nucleated RBC % 0 Retic Count PT with INR INR PTT (Actin FS) Sodium 139 Potassium 4.0 Chloride 105 Carbon Dioxide 25 Anion Gap 9 BUN 16.9 Creatinine 0.9 Est GFR (CKD-EPI)AfAm 89.32 Est GFR (CKD-EPI)NonAf 77.06 Random Glucose 111 H Calcium 9.0 Phosphorus Magnesium Iron TIBC Iron Saturation Unsaturated IBC Ferritin Total Bilirubin 0.6 AST 21 ALT 24 Alkaline Phosphatase 82 Total Protein 6.8 Albumin 3.3 L Vitamin B12 Serum Folate TSH Urine Color Yellow Urine Appearance Clear Urine pH 5.5 Ur Specific [place] 1.019 Urine Protein Trace Urine Glucose (UA) Negative Urine Ketones Negative Urine Blood Negative Urine Nitrite Negative Urine Bilirubin Negative Urine Urobilinogen 0.2 Ur Leukocyte Esterase Negative RPR Titer 03/14/19 03/15/19 03/15/19 16:30 07:05 07:05 WBC 6.5 RBC 3.73 L Hgb 11.0 L Hct 34.0 L MCV 91.0 MCH 29.3 MCHC 32.2 RDW 17.4 H Plt Count 303 MPV 7.8 Absolute Neuts (auto) 3.5 Neutrophils % 53.2 D Lymphocytes % 33.8 D Monocytes % 9.3 D Eosinophils % 2.9 D Basophils % 0.8 Nucleated RBC % 0 Retic Count 1.10 PT with INR 24.80 H 27.30 H INR 2.09 H 2.29 H PTT (Actin FS) 32.8 Sodium Potassium Chloride Carbon Dioxide Anion Gap BUN Creatinine Est GFR (CKD-EPI)AfAm Est GFR (CKD-EPI)NonAf Random Glucose Calcium Phosphorus Magnesium Iron TIBC Iron Saturation Unsaturated IBC Ferritin Total Bilirubin AST ALT Alkaline Phosphatase Total Protein Albumin Vitamin B12 Serum Folate TSH Urine Color Urine Appearance Urine pH Ur Specific [place] Urine Protein Urine Glucose (UA) Urine Ketones Urine Blood Urine Nitrite Urine Bilirubin Urine Urobilinogen Ur Leukocyte Esterase RPR Titer 03/15/19 03/15/19 03/15/19 07:05 07:05 07:05 WBC RBC Hgb Hct MCV MCH MCHC RDW Plt Count MPV Absolute Neuts (auto) Neutrophils % Lymphocytes % Monocytes % Eosinophils % Basophils % Nucleated RBC % Retic Count PT with INR INR PTT (Actin FS) Sodium 140 Potassium 3.6 Chloride 104 Carbon Dioxide 27 Anion Gap 9 BUN 16.3 Creatinine 0.9 Est GFR (CKD-EPI)AfAm 89.32 Est GFR (CKD-EPI)NonAf 77.06 Random Glucose 70 L Calcium 8.8 Phosphorus 3.3 Magnesium 2.0 Iron 40 L TIBC 235 L Iron Saturation 17 L Unsaturated IBC 195 L Ferritin 45.2 Total Bilirubin 0.6 AST 20 ALT 21 Alkaline Phosphatase 68 Total Protein 6.0 L Albumin 2.9 L Vitamin B12 681 Serum Folate 9 TSH 1.96 Urine Color Urine Appearance Urine pH Ur Specific [place] Urine Protein Urine Glucose (UA) Urine Ketones Urine Blood Urine Nitrite Urine Bilirubin Urine Urobilinogen Ur Leukocyte Esterase RPR Titer Nonreactive Current Medications Generic Name Dose Route Start Last Admin Trade Name Freq PRN Reason Stop Dose Admin Acetaminophen 650 mg 03/14/19 20:55 03/15/19 07:21 Tylenol - PO 325 mg Q4H PRN Administration PAIN LEVEL 1-5 Atorvastatin Calcium 20 mg 03/14/19 22:00 03/14/19 21:25 Lipitor - PO 20 mg HS JOSELINE Administration Lisinopril 10 mg 03/14/19 20:56 03/14/19 21:25 Prinivil PO 10 mg HS JOSELINE Administration Nebivolol 5 mg 03/15/19 10:00 03/15/19 10:36 Bystolic - PO 5 mg DAILY JOSELINE Administration Prednisone 10 mg 03/15/19 07:00 03/15/19 07:22 Deltasone - PO Not Given AM [facility] Warfarin Sodium 2.5 mg 03/15/19 18:00 Coumadin - PO DAILY@1800 [facility] Home Medications Medication Instructions Recorded Nebivolol HCl [Bystolic] 5 mg PO DAILY 10/01/14 predniSONE [Deltasone -] 15 mg PO AM 10/01/14 Atorvastatin Ca [Lipitor] 20 mg PO HS 03/25/16 Cholecalciferol (Vitamin D3) 1,000 unit PO DAILY 03/25/16 [Vitamin D3 -] Docusate Sodium [Stool Softener] 100 mg PO BID 02/01/19 Acetaminophen [Tylenol .Regular 650 mg PO Q6H PRN tablet 02/05/19 Strength -] Warfarin Na [Coumadin -] 2.5 mg PO ASDIR #1 tab 02/05/19 ASSESSMENT AND PLAN: 88 year old male with history of PMR (on Steroid) , COPD, AV stenosis s/p TAVR , LBBB s/p PPM, SCC s/p MOHS, on Coumadin (reason unclear), brought in by due to agitation at home, increasing forgetfulness, and paranoia. CT HEAD neg for acute intracranial findings. ECG - SR, LBBB, non-specific T wave abnormalities, QTc 492 1. Increasing confusion/agitation/paranoia ? sec to progressive Dementia CT head - no acute findings. No clinical or radiological findings of CVA. TSH wnl, RPR non-reactive, B12 - 681. Neuro and Psych consults requested. Consider Risperidone if further agitation. 2. HTN - Hypertensive on presentation - now normotensive on resuming home meds including Nebivolol with Lisinopril added. 3. Normocytic anemia sec to chronic disease, Iron Sat 17% (borderline), B12 level 681, Folate 9. For out-patient investigation. 4. PMR - continue Prednisone. 5. AV Stenosis s/p TAVR - on BB/Statin. DVT Px - on coumadin, INR therapeutic (Will discuss with Dr. Haro reason for Coumadin anticoagulation)
--- NOTE | 2019-03-15 14:59 | CON.PSY ---
Psychiatry Consult Chief Complaint: 88 vYera old male admitted with HTN seen for Psych eval for agitation and cparanoia. Spoke with patients who reports increased paranoid behaviour since coming home from a HOME. Patient is afraid of returning to [facility]. not sleeping well either. Symptoms: reports: Anxiety, Paranoia - Previous Psychiatric Treatment Outpatient: None Inpatient: None - Previous Substance Abuse Treatment Outpatient: None Inpatient: None - Current Medications Current Medications: Active Medications Acetaminophen (Tylenol -) 650 mg PO Q4H PRN PRN Reason: PAIN LEVEL 1-5 Last Admin: 03/15/19 07:21 Dose: 325 mg Atorvastatin Calcium (Lipitor -) 20 mg PO HS [facility] Last Admin: 03/14/19 21:25 Dose: 20 mg Lisinopril (Prinivil) 10 mg PO HS [facility] Last Admin: 03/14/19 21:25 Dose: 10 mg Nebivolol (Bystolic -) 5 mg PO DAILY [facility] Last Admin: 03/15/19 10:36 Dose: 5 mg Olanzapine (Zyprexa -) 2.5 mg PO HS [facility] Prednisone (Deltasone -) 10 mg PO AM [facility] Last Admin: 03/15/19 07:22 Dose: Not Given Warfarin Sodium (Coumadin -) 2.5 mg PO DAILY@1800 [facility] - Allergies Allergies: Allergies Allergy/AdvReac Type Severity Reaction Status Date / Time codeine AdvReac Nausea Verified 03/14/19 16:38 - Current Living Status Usual Living Arrangement: With Spouse - Current Mental Status Evaluation Appearance: Well Groomed Attitude: Cooperative - Affect Affect: Full Range Appropriateness: Appropriate to Content - Mood Mood: Irritable - Speech/Language Expressive: Coherent - Psychomotor Activity Psychomotor Activity: Hyperactive - Thought Process Thought Process: Intact - Thought Content Hallucinations: Absent Type: Persectory - Self Perception Self Perception: No Impairment - Cognition Attention: Alert Orientation: Time Memory, Immediate Recall: Intact Memory, Short Term: 2/3 Memory, Remote: Impaired Memory, Remote with Promptin/3 - Concentration Serial Sevens Intact: No Simple Calculations Intact: Yes - Abstraction Proverb Interpretation: Intact Judgement: Minimally Impaired - Insight Insight: Impaired - Impulse Control Impulse Control: Minimally Impaired - Suicidal Ideation Suicidal Ideation: No - Homicidal Ideation Homicidal Ideation: No Assessment/Plan 1) Zyprexa 2.5 mg po hs for paranoia and agitation.
--- NOTE | 2019-03-15 16:56 | PN ---
Physical Exam: SUBJECTIVE: Patient seen and examined O/N: resident ordered Fleming, and mittens; patient did not get them Endorses being upset over this short-term memory loss and bouts of agitated behavior OBJECTIVE: Vital Signs Period Temp Pulse Resp BP Sys/Scott Pulse Ox Last 24 Hr 97.2 F-98.7 F 60-68 18-20 105-177/56-93 95-97 GENERAL: NAD, A&Ox4 HEAD: NC/AT, mild faith wasting EYES: sclera anicteric, conjunctiva clear. ENT: oropharynx w/o exudate, moist mucous membranes. NECK: Trachea midline, full range of motion, supple. LUNGS: Breath sounds equal, clear to auscultation bilaterally, no wheezes, no crackles, no accessory muscle use. HEART: Regular rate and rhythm, S1, S2. Left upper chest with palpable PPM, no sternotomy wound ABDOMEN: Soft, nontender, nondistended, no guarding, no rebound, no hepatosplenomegaly, no masses. EXTREMITIES: 2+ pulses, warm, well-perfused, no edema. No bruising to elbows/ knees NEUROLOGICAL: Cranial nerves II through XII grossly intact. Normal speech PSYCH: mild agitation SKIN: Warm, dry, normal turgor, no rashes or lesions noted Laboratory Results - last 24 hr 03/14/19 03/14/19 03/14/19 16:03 16:30 16:30 WBC 7.8 RBC 3.79 L Hgb 11.1 L Hct 34.7 L MCV 91.5 MCH 29.1 MCHC 31.8 L RDW 17.5 H Plt Count 311 D MPV 7.9 Absolute Neuts (auto) 7.0 Neutrophils % 89.3 H Lymphocytes % 6.0 L D Monocytes % 2.6 L Eosinophils % 0.0 D Basophils % 2.1 H D Nucleated RBC % 0 Retic Count PT with INR INR PTT (Actin FS) Sodium 139 Potassium 4.0 Chloride 105 Carbon Dioxide 25 Anion Gap 9 BUN 16.9 Creatinine 0.9 Est GFR (CKD-EPI)AfAm 89.32 Est GFR (CKD-EPI)NonAf 77.06 Random Glucose 111 H Calcium 9.0 Phosphorus Magnesium Iron TIBC Iron Saturation Unsaturated IBC Ferritin Total Bilirubin 0.6 AST 21 ALT 24 Alkaline Phosphatase 82 Total Protein 6.8 Albumin 3.3 L Vitamin B12 Serum Folate TSH Urine Color Yellow Urine Appearance Clear Urine pH 5.5 Ur Specific Sharon 1.019 Urine Protein Trace Urine Glucose (UA) Negative Urine Ketones Negative Urine Blood Negative Urine Nitrite Negative Urine Bilirubin Negative Urine Urobilinogen 0.2 Ur Leukocyte Esterase Negative RPR Titer 03/14/19 03/15/19 03/15/19 16:30 07:05 07:05 WBC 6.5 RBC 3.73 L Hgb 11.0 L Hct 34.0 L MCV 91.0 MCH 29.3 MCHC 32.2 RDW 17.4 H Plt Count 303 MPV 7.8 Absolute Neuts (auto) 3.5 Neutrophils % 53.2 D Lymphocytes % 33.8 D Monocytes % 9.3 D Eosinophils % 2.9 D Basophils % 0.8 Nucleated RBC % 0 Retic Count 1.10 PT with INR 24.80 H 27.30 H INR 2.09 H 2.29 H PTT (Actin FS) 32.8 Sodium Potassium Chloride Carbon Dioxide Anion Gap BUN Creatinine Est GFR (CKD-EPI)AfAm Est GFR (CKD-EPI)NonAf Random Glucose Calcium Phosphorus Magnesium Iron TIBC Iron Saturation Unsaturated IBC Ferritin Total Bilirubin AST ALT Alkaline Phosphatase Total Protein Albumin Vitamin B12 Serum Folate TSH Urine Color Urine Appearance Urine pH Ur Specific Sharon Urine Protein Urine Glucose (UA) Urine Ketones Urine Blood Urine Nitrite Urine Bilirubin Urine Urobilinogen Ur Leukocyte Esterase RPR Titer 03/15/19 03/15/19 03/15/19 07:05 07:05 07:05 WBC RBC Hgb Hct MCV MCH MCHC RDW Plt Count MPV Absolute Neuts (auto) Neutrophils % Lymphocytes % Monocytes % Eosinophils % Basophils % Nucleated RBC % Retic Count PT with INR INR PTT (Actin FS) Sodium 140 Potassium 3.6 Chloride 104 Carbon Dioxide 27 Anion Gap 9 BUN 16.3 Creatinine 0.9 Est GFR (CKD-EPI)AfAm 89.32 Est GFR (CKD-EPI)NonAf 77.06 Random Glucose 70 L Calcium 8.8 Phosphorus 3.3 Magnesium 2.0 Iron 40 L TIBC 235 L Iron Saturation 17 L Unsaturated IBC 195 L Ferritin 45.2 Total Bilirubin 0.6 AST 20 ALT 21 Alkaline Phosphatase 68 Total Protein 6.0 L Albumin 2.9 L Vitamin B12 681 Serum Folate 9 TSH 1.96 Urine Color Urine Appearance Urine pH Ur Specific Sharon Urine Protein Urine Glucose (UA) Urine Ketones Urine Blood Urine Nitrite Urine Bilirubin Urine Urobilinogen Ur Leukocyte Esterase RPR Titer Nonreactive Active Medications Generic Name Dose Route Start Last Admin Trade Name Freq PRN Reason Stop Dose Admin Acetaminophen 650 mg 03/14/19 20:55 03/15/19 07:21 Tylenol - PO 325 mg Q4H PRN Administration PAIN LEVEL 1-5 Atorvastatin Calcium 20 mg 03/14/19 22:00 03/14/19 21:25 Lipitor - PO 20 mg HS [facility] Administration Lisinopril 10 mg 03/14/19 20:56 03/14/19 21:25 Prinivil PO 10 mg HS JOSELINE Administration Nebivolol 5 mg 03/15/19 10:00 03/15/19 10:36 Bystolic - PO 5 mg DAILY JOSELINE Administration Olanzapine 2.5 mg 03/15/19 22:00 Zyprexa - PO HS [facility] Prednisone 10 mg 03/15/19 07:00 03/15/19 07:22 Deltasone - PO Not Given AM [facility] Warfarin Sodium 2.5 mg 03/15/19 18:00 Coumadin - PO DAILY@1800 [facility] Vital Signs Temp 98.7 F 03/15/19 14:35 Pulse 62 03/15/19 14:35 Resp 18 03/15/19 14:35 BP 105/56 L 03/15/19 14:35 Pulse Ox 97 03/15/19 09:00 Intake & Output 03/14/19 03/15/19 03/15/19 23:59 11:59 23:59 Intake Total 200 100 400 Output Total 400 Balance -200 100 400 Weight 66.451 kg 66.224 kg Intake: Oral 200 100 400 Output: Urine 400 Void 400 Other: Voiding Method Urinal Diaper Height 5 ft 8 in 5 ft 8 in Body Mass Index (BMI) 22.2 22.1 Weight Measurement Method Standing Scale ASSESSMENT/PLAN: 88 y/o M with PMH of polymyalgia rheumatica(chronic prednisone), COPD( no longer on home oxygen),Aortic valve disease s/p AVR, pAF(coumadin), LBBB s/p pacemaker, BCC s/p MOhs surgery, prostate cancer(not a surgical candidate) who was brought in by the because of worsening agitation, paranoia, HTN(SBP 200s). Admitted for new-onset dementia vs schizophreniform disorder # Agitation, paranoia, disorganized and poor grooming poss 2/2 new-onset dementia vs Schizophreniform disorder > EKG: QTc 492, NSR w/ chronic LBBB > TSH 1.96 --normal > RPR --pending - s/p ativan 0.5mg x1 - continuous observation - Psychiatry Dr Castillo consulted --olanzapine 2.5mg QHS # Hypertensive crisis BP at home 200/101. in ED, 177/93 -> 168/94 gave one dose of lisinopril 10 mg PO once - new lisinopril 10mg QD - nebivolol 5mg QD # Normocytic Anemia > iron saturation: 17% > retic 1.1 > B12 681 --normal > folate 9 --normal - stool occult blood --pending collection # Polymyalgia rheumatica continue prednisone 10 mg as directed, home dose is 15mg #pAF cont coumadin #TAVR -monitor DVT already on coumadin Visit type - Emergency Visit Emergency Visit: No - New Patient This patient is new to me today: No - Critical Care Critical Care patient: No ATTENDING PHYSICIAN STATEMENT I saw and evaluated the patient. I reviewed the resident's note and discussed the case with the resident. I agree with the resident's findings and plan as documented. SUBJECTIVE: OBJECTIVE: ASSESSMENT AND PLAN:
[2019-03-15] MEDS: WARFARIN NA 2.5 MG TABLET (FP) PO SCH (17:12)
[2019-03-15] MEDS: LISINOPRIL 10 MG TABLET (FP) PO SCH ×2 (21:10→21:18)
[2019-03-15] MEDS: ATORVASTATIN CA 20 MG TABLET (FP) PO SCH (21:10)
[2019-03-15] MEDS: OLANZapine 2.5 MG TABLET PO SCH (21:10)
[2019-03-15] MEDS ORDERED: DOCUSATE SODIUM 100 MG CAPSULE (FP) PO ONE (21:23)
[2019-03-16] MEDS: ACETAMINOPHEN 325 MG TABLET (FP) PO PRN (00:32)
[2019-03-16] MEDS: predniSONE 10 MG TABLET (UD) PO SCH (06:36)
[2019-03-16 07:29] LABS: INR 2.38 (0.83-1.09); PROTHROMBIN TIME (PATIENT) 28.3 SEC (9.7-13.0)
[2019-03-16] MEDS ORDERED: OLANZapine 2.5 MG TABLET PO ONE (10:45)
--- NOTE | 2019-03-16 11:30 | PN ---
Physical Exam: SUBJECTIVE: Patient seen and examined at bedside this morning. No acute events overnight. Patient was reported to sleep well through the night. this morning, patient was emotional and was tearful. Spoke to , who reported all these symptoms were sudden in onset that started 2 weeks ago, and that the patient was always emotional and tearful in the morning. OBJECTIVE: Vital Signs Temperature 98 F 03/16/19 14:03 Pulse Rate 65 03/16/19 14:03 Respiratory Rate 18 03/16/19 14:03 Blood Pressure 156/87 03/16/19 14:03 O2 Sat by Pulse Oximetry (%) 97 03/15/19 21:00 GENERAL: The patient is awake, alert, and fully oriented, in no acute distress. ENT: dry mucous membranes NECK: Trachea midline, full range of motion, supple. LUNGS: Breath sounds equal, clear to auscultation bilaterally. HEART: Regular rate and rhythm, S1, S2 without murmur, rub or gallop. ABDOMEN: Soft, nontender, nondistended, normoactive bowel sounds. EXTREMITIES: no edema. NEUROLOGIC: Cranial nerves II-XII intact. MOves all extremities equally, PSYCHIATRY: Cooperative, with good eye contact. anxious and agitated. SKIN: Warm, dry, normal turgor, no rashes or lesions noted Laboratory Results - last 24 hr 03/15/19 03/16/19 07:05 06:21 PT with INR 28.30 H INR 2.38 H RPR Titer Nonreactive Active Medications Generic Name Dose Route Start Last Admin Trade Name Freq PRN Reason Stop Dose Admin Acetaminophen 650 mg 03/14/19 20:55 03/16/19 00:32 Tylenol - PO 650 mg Q4H PRN Administration PAIN LEVEL 1-5 Atorvastatin Calcium 20 mg 03/14/19 22:00 03/15/19 21:10 Lipitor - PO 20 mg HS JOSELINE Administration Lisinopril 10 mg 03/14/19 20:56 03/15/19 21:18 Prinivil PO Not Given HS JOSELINE Nebivolol 5 mg 03/15/19 10:00 03/15/19 10:36 Bystolic - PO 5 mg DAILY JOSELINE Administration Olanzapine 2.5 mg 03/15/19 22:00 03/15/19 21:10 Zyprexa - PO 2.5 mg HS JOSELINE Administration Prednisone 10 mg 03/15/19 07:00 03/16/19 06:36 Deltasone - PO 10 mg AM JOSELINE Administration Warfarin Sodium 2.5 mg 03/15/19 18:00 03/15/19 17:12 Coumadin - PO 2.5 mg DAILY@1800 JOSELINE Administration ASSESSMENT/PLAN: Patient is an 88 year old male with past medical history of polymyalgia rheumatica, COPD,Aortic valve disease s/p AVR, pAF, LBBB s/p pacemaker, BCC s/p MOhs surgery, prostate cancer, was brought in by due to sudden worsening agitation, paranoia, and at the ED was found to have elevated blood pressure. # Agitation, paranoia, confusion poss 2/2 progressive dementia vs Schizophreniform disorder -Head CT no acute intracranial pathology -RPR non reactive, TSH wnl, B12 681 -continuous observation -Psychiatry (Dr Castillo) consulted. recs appreciated. -Olanzapine 2.5mg QHS -Neurology (Dr. jim) consulted. Recs appreciated. -Symptoms seem more to be psych in origin -No immediate intervention indicated at this time. -To follow up with neuro as outpatient. # Hypertensive crisis -BP now stable -To continue lisinopril 10mg QD -Continue home nebivolol 5mg QD # Normocytic Anemia -likely 2/2 ANITHA -continue Ferrous sulfate 325mg bid -colace 100mg bid -H/H stable # Polymyalgia rheumatica -continue prednisone #pAF -cont coumadin #FEN -Not on any standing fluids -Electrolytes wnl, routine bmp monitoring -Sodium controlled diet #DVT ppx -on coumadin #Dispo -med surg -likely for dc in am Visit type - Emergency Visit Emergency Visit: Yes ED Registration Date: 03/14/19 Care time: The patient presented to the Emergency Department on the above date and was hospitalized for further evaluation of their emergent condition. - New Patient This patient is new to me today: No - Critical Care Critical Care patient: No ATTENDING PHYSICIAN STATEMENT I saw and evaluated the patient. I reviewed the resident's note and discussed the case with the resident. I agree with the resident's findings and plan as documented. SUBJECTIVE: OBJECTIVE: ASSESSMENT AND PLAN:
--- NOTE | 2019-03-16 11:41 | CONSULT ---
Consult - text type - Consultation Consultation Note: Neurology CHIEF COMPLAINT: agitation and paranoia PCP:Dr Veliz HISTORY OF PRESENT ILLNESS: 88 y/o M with PMH of polymyalgia rheumatica, COPD (no longer on home oxygen), Aortic valve disease s/p replacement (on coumadin), LBBB s/p pacemaker , squamous cell carcinoma s/p MOhs surgery, prostate cancer who was brought in by the because of worsening agitation, paranoia, and refusal to groom prior to admission. Patient's discussed her concerns recently with his PCP Dr. Veliz and Dr. Veliz endorsed that he himself has observed the patient becoming more forgetful and more cantankerous over the past several months. Pt and denied any episodes of hallucination or vivid dreaming. The paranoia often entailed the use of cellphones by him and others, hidden papers all around the house. Per this morning, pt woke up frantic and pulling everything out of closets in search of "papers". Measured blood pressure by aide at home, blood pressure in the 200/101 mmHg. was advised to bring patient to the hospital. As per , the paranoia and agitation is worse in the morning but occurs at night as well. Pt has been experiencing loss of short term memory but remote memory has remained intact. Pt and denied any recent adjustment to the prednisone dose of his polymyalgia Rheumatica. No recent infection or sick contact. Pt was recently admitted for recurrent fall resulting in rib fractures and discharged to acute rehab. Pt denied any dizziness, loss of consciousness, change in vision, change in bowel movement or urination. No recent travels. Pt had recent colonoscopy that revealed over a [address] England; according to pt, no intervention was made due to patient's age and comorbidities and family wishes. Head CT completed with no acute pathology. Reviewed note from Dr. 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 Patient fixated on BP during visit, seen with son at bedside. Is able to tell me location, date , name of President. Symptoms seem more due to psych origin. Do not feel he needs further imaging such as MRI at this time. Can re-eval this as outpatient. Would optimize psych and medical issues at this time. Recent Travel: none PAST MEDICAL HISTORY: as above PAST SURGICAL HISTORY: Mohs surgery FAMILY HISTORY: skin cancer in multiple family members Social History: former smoker SmokinPPD for 15 yrs quit over 50 yrs ago Alcohol: denies Drugs: denies Allergies codeine Adverse Reaction (Verified 03/14/19 16:38) Nausea Ambulatory Orders Nebivolol HCl [Bystolic] 5 mg PO DAILY 10/01/14 predniSONE [Deltasone -] 15 mg PO AM 10/01/14 Atorvastatin Ca [Lipitor] 20 mg PO HS 03/25/16 Cholecalciferol (Vitamin D3) [Vitamin D3 -] 1,000 unit PO DAILY 03/25/16 Docusate Sodium [Stool Softener] 100 mg PO BID 02/01/19 Acetaminophen [Tylenol .Regular Strength -] 650 mg PO Q6H PRN tablet 02/05/19 Warfarin Na [Coumadin -] 2.5 mg PO ASDIR #1 tab 02/05/19 REVIEW OF SYSTEMS CONSTITUTIONAL: Absent: fever, chills, diaphoresis, generalized weakness, malaise, loss of appetite, weight change HEENT: Absent: rhinorrhea, nasal congestion, throat pain, throat swelling, difficulty swallowing, mouth swelling, ear pain, eye pain, visual changes CARDIOVASCULAR: Absent: chest pain, syncope, palpitations, irregular heart rate, lightheadedness , peripheral edema RESPIRATORY: Absent: cough, shortness of breath, dyspnea with exertion, orthopnea, wheezing, stridor, hemoptysis GASTROINTESTINAL: Absent: abdominal pain, abdominal distension, nausea, vomiting, diarrhea, constipation, melena, hematochezia GENITOURINARY: Absent: dysuria, frequency, urgency, hesitancy, hematuria, flank pain, genital pain MUSCULOSKELETAL: Absent: myalgia, arthralgia, joint swelling, back pain, neck pain SKIN: Absent: rash, itching, pallor HEMATOLOGIC/IMMUNOLOGIC: Absent: easy bleeding, easy bruising, lymphadenopathy, frequent infections ENDOCRINE: Absent: unexplained weight gain, unexplained weight loss, heat intolerance, cold intolerance NEUROLOGIC: Absent: headache, focal weakness or paresthesias, dizziness, unsteady gait, seizure, mental status changes, bladder or bowel incontinence PSYCHIATRIC: anxiety Absent: depression, suicidal or homicidal ideation, hallucinations. PHYSICAL EXAMINATION Vital Signs Period Temp Pulse Resp BP Sys/Scott Pulse Ox Last 24 Hr 97.2 F-98.7 F 60-62 18-18 105-134/56-74 97 GENERAL: Awake, alert, and fully oriented, in mod distress. HEAD: Normal with no signs of trauma. EYES: Pupils equal, round and reactive to light, extraocular movements intact, sclera anicteric, conjunctiva clear. No lid lag. EARS, NOSE, THROAT: oropharynx clear with bluish discoloration and lesion in the mucal membranes. Moist mucous membranes. NECK: Normal range of motion, supple without lymphadenopathy, JVD, or masses. LUNGS: Breath sounds equal, clear to auscultation bilaterally. No wheezes, and no crackles. No accessory muscle use. HEART: Regular rate and rhythm, normal S1 and S2 with AV valve replacement murmur but no rub or gallop. ABDOMEN: Soft, nontender, not distended, normoactive bowel sounds, no guarding, no rebound, no masses. No hepatomegaly or splenomegaly. MUSCULOSKELETAL: Normal range of motion at all joints. No bony deformities or tenderness. No CVA tenderness. UPPER EXTREMITIES: 2+ pulses, warm, well-perfused. No cyanosis. No clubbing. No peripheral edema. LOWER EXTREMITIES: 2+ pulses, warm, well-perfused. No calf tenderness. No peripheral edema. NEUROLOGICAL: Cranial nerves II-XII intact. MOves all extremities equally, sensory intact, gait deferred PSYCHIATRIC: Cooperative. Good eye contact. agitated and anxious. MMSE 23/30 SKIN: Warm, dry, normal turgor, seborrheic keratosis and actinic keratosis noted CBCD WBC 6.5 K/mm3 (4.0-10.0) 03/15/19 07:05 RBC 3.73 M/mm3 (4.00-5.60) L 03/15/19 07:05 Hgb 11.0 GM/dL (11.7-16.9) L 03/15/19 07:05 Hct 34.0 % (35.4-49) L 03/15/19 07:05 MCV 91.0 fl (80-96) 03/15/19 07:05 MCHC 32.2 g/dl (32.0-35.9) 03/15/19 07:05 RDW 17.4 % (11.9-15.9) H 03/15/19 07:05 Plt Count 303 K/MM3 (134-434) 03/15/19 07:05 MPV 7.8 fl (7.5-11.1) 03/15/19 07:05 CMP Sodium 140 mmol/L (136-145) 03/15/19 07:05 Potassium 3.6 mmol/L (3.5-5.1) 03/15/19 07:05 Chloride 104 mmol/L (98-107) 03/15/19 07:05 Carbon Dioxide 27 mmol/L (21-32) 03/15/19 07:05 Anion Gap 9 MMOL/L (8-16) 03/15/19 07:05 BUN 16.3 mg/dL (7-18) 03/15/19 07:05 Creatinine 0.9 mg/dL (0.55-1.3) 03/15/19 07:05 Random Glucose 70 mg/dL (74-106) L 03/15/19 07:05 Calcium 8.8 mg/dL (8.5-10.1) 03/15/19 07:05 Total Bilirubin 0.6 mg/dL (0.2-1) 03/15/19 07:05 AST 20 U/L (15-37) 03/15/19 07:05 ALT 21 U/L (13-61) 03/15/19 07:05 Alkaline Phosphatase 68 U/L (45-117) 03/15/19 07:05 Total Protein 6.0 g/dl (6.4-8.2) L 03/15/19 07:05 Albumin 2.9 g/dl (3.4-5.0) L 03/15/19 07:05 ASSESSMENT/PLAN: 88 y/o M with PMH of polymyalgia rheumatica, COPD (no longer on home oxygen), Aortic valve disease s/p replacement (on coumadin), LBBB s/p pacemaker , squamous cell carcinoma s/p MOhs surgery, prostate cancer who was brought in by the because of worsening agitation, paranoia, and refusal to groom prior to admission. Patient's discussed her concerns recently with his PCP Dr. Veliz and Dr. Veliz endorsed that he himself has observed the patient becoming more forgetful and more cantankerous over the past several months. Pt and denied any episodes of hallucination or vivid dreaming. The paranoia often entailed the use of cellphones by him and others, hidden papers all around the house. Per this morning, pt woke up frantic and pulling everything out of closets in search of "papers". Measured blood pressure by aide at home, blood pressure in the 200/101 mmHg. was advised to bring patient to the hospital. As per , the paranoia and agitation is worse in the morning but occurs at night as well. Pt has been experiencing loss of short term memory but remote memory has remained intact. Pt and denied any recent adjustment to the prednisone dose of his polymyalgia Rheumatica. No recent infection or sick contact. Pt was recently admitted for recurrent fall resulting in rib fractures and discharged to acute rehab. Pt denied any dizziness, loss of consciousness, change in vision, change in bowel movement or urination. No recent travels. Pt had recent colonoscopy that revealed over a [address] England; according to pt, no intervention was made due to patient's age and comorbidities and family wishes. Head CT completed with no acute pathology. Reviewed note from Dr. 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 Patient fixated on BP during visit, seen with son at bedside. Is able to tell me location, date , name of President. Symptoms seem more due to psych origin. Do not feel he needs further imaging such as MRI at this time. Can re-eval this as outpatient. Would optimize psych and medical issues at this time.
--- NOTE | 2019-03-16 12:25 | PN ---
Teaching Attending Note Name of Resident: Brissa Harris ATTENDING PHYSICIAN STATEMENT I saw and evaluated the patient. I reviewed the resident's note and discussed the case with the resident. I agree with the resident's findings and plan as documented. SUBJECTIVE: Emotionally labile, tearful. No fever/chills. No headache/ photophobia. No complaints of pain/nausea/vomiting/diarrhea. OBJECTIVE: Afebrile, Hemodynamically Stable. Oriented x 3. Depressed, tearful. Last Vital Signs Temp Pulse Resp BP Pulse Ox 97.3 F L 62 18 111/65 97 03/16/19 07:28 03/16/19 07:28 03/16/19 07:28 03/16/19 07:28 03/15/19 21:00 HEENT - Atraumatic, Normocephalic. Neuro - AAO x 3. Moving all 4 extremities. Heart - S1, S2, soft SM Lungs - clear to auscultation Abdomen - Soft, non-tender. Bowel Sounds normal. Extremities - no edema, no calf tenderness Laboratory Results - last 24 hr 03/15/19 03/16/19 07:05 06:21 PT with INR 28.30 H INR 2.38 H RPR Titer Nonreactive Current Medications Generic Name Dose Route Start Last Admin Trade Name Freq PRN Reason Stop Dose Admin Acetaminophen 650 mg 03/14/19 20:55 03/16/19 00:32 Tylenol - PO 650 mg Q4H PRN Administration PAIN LEVEL 1-5 Atorvastatin Calcium 20 mg 03/14/19 22:00 03/15/19 21:10 Lipitor - PO 20 mg HS JOSELINE Administration Lisinopril 10 mg 03/14/19 20:56 03/15/19 21:18 Prinivil PO Not Given HS JOSELINE Nebivolol 5 mg 03/15/19 10:00 03/15/19 10:36 Bystolic - PO 5 mg DAILY JOSELINE Administration Olanzapine 2.5 mg 03/15/19 22:00 03/15/19 21:10 Zyprexa - PO 2.5 mg HS JOSELINE Administration Prednisone 10 mg 03/15/19 07:00 03/16/19 06:36 Deltasone - PO 10 mg AM JOSELINE Administration Warfarin Sodium 2.5 mg 03/15/19 18:00 03/15/19 17:12 Coumadin - PO 2.5 mg DAILY@1800 JOSELINE Administration Home Medications Medication Instructions Recorded Nebivolol HCl [Bystolic] 5 mg PO DAILY 10/01/14 predniSONE [Deltasone -] 15 mg PO AM 10/01/14 Atorvastatin Ca [Lipitor] 20 mg PO HS 03/25/16 Cholecalciferol (Vitamin D3) 1,000 unit PO DAILY 03/25/16 [Vitamin D3 -] Docusate Sodium [Stool Softener] 100 mg PO BID 02/01/19 Acetaminophen [Tylenol .Regular 650 mg PO Q6H PRN tablet 02/05/19 Strength -] Warfarin Na [Coumadin -] 2.5 mg PO ASDIR #1 tab 02/05/19 ASSESSMENT AND PLAN: 88 year old male with history of PMR (on Steroid) , COPD, AV stenosis s/p TAVR , LBBB s/p PPM, SCC s/p MOHS, on Coumadin (reason unclear), brought in by due to agitation at home, increasing forgetfulness, and paranoia. CT HEAD neg for acute intracranial findings. ECG - SR, LBBB, non-specific T wave abnormalities, QTc 492 1. Increasing confusion/agitation/paranoia - resolving. Now emotional, tearful, no further agitation. Likely sec to progressive Dementia CT head - no acute findings. No clinical or radiological findings of CVA. TSH wnl, RPR non-reactive, B12 - 681. Psych recommends starting Zyprexa at bedtime. Neurology consulted by Dr. Haro. 2. HTN - Hypertensive on presentation - now normotensive on resuming home meds including Nebivolol with Lisinopril added. 3. Normocytic anemia sec to chronic disease, Iron Sat 17% (borderline), B12 level 681, Folate 9. No evidence of active GI blood loss. H/H Stable. Fe supplementation started. For discussion of further Ix as out-patient. 4. PMR - continue Prednisone. 5. AV Stenosis s/p TAVR - on BB/Statin. 6. atrial fibrillation - continue BB and Coumadin. DVT Px - on coumadin, INR therapeutic.
[2019-03-16] MEDS ORDERED: DOCUSATE SODIUM 100 MG CAPSULE (FP) PO PRN (12:31)
[2019-03-16] MEDS: NEBIVOLOL 5 MG TABLET (FP) PO SCH (12:49)
[2019-03-16] MEDS: FERROUS SO4 325 MG TABLET (FP) PO SCH (18:21)
[2019-03-16] MEDS: WARFARIN NA 2.5 MG TABLET (FP) PO SCH (18:21)
[2019-03-16] MEDS ORDERED: PT OWN MED DRAWER 7, Y5N ONE ×3 (18:39→21:11)
[2019-03-16] MEDS: ATORVASTATIN CA 20 MG TABLET (FP) PO SCH (21:34)
[2019-03-16] MEDS: LISINOPRIL 10 MG TABLET (FP) PO SCH (21:35)
[2019-03-16] MEDS: OLANZapine 2.5 MG TABLET PO SCH (21:35)
[2019-03-17] MEDS: predniSONE 10 MG TABLET (UD) PO SCH (06:54)
[2019-03-17] MEDS: FERROUS SO4 325 MG TABLET (FP) PO SCH ×2 (10:52→18:01)
[2019-03-17] MEDS: NEBIVOLOL 5 MG TABLET (FP) PO SCH (10:53)
[2019-03-17] MEDS ORDERED: OLANZapine 5 MG TABLET PO ONE (10:58)
[2019-03-17] MEDS ORDERED: PT OWN MED DRAWER 7, Y5N ONE ×2 (11:02→17:51)
--- NOTE | 2019-03-17 12:55 | PN ---
Progress Note (short form) - Note Progress Note: Neurology CHIEF COMPLAINT: agitation and paranoia PCP:Dr Veliz HISTORY OF PRESENT ILLNESS: 88 y/o M with PMH of polymyalgia rheumatica, COPD (no longer on home oxygen), Aortic valve disease s/p replacement (on coumadin), LBBB s/p pacemaker , squamous cell carcinoma s/p MOhs surgery, prostate cancer who was brought in by the because of worsening agitation, paranoia, and refusal to groom prior to admission. Patient's discussed her concerns recently with his PCP Dr. Veliz and Dr. Veliz endorsed that he himself has observed the patient becoming more forgetful and more cantankerous over the past several months. Pt and denied any episodes of hallucination or vivid dreaming. The paranoia often entailed the use of cellphones by him and others, hidden papers all around the house. Per this morning, pt woke up frantic and pulling everything out of closets in search of "papers". Measured blood pressure by aide at home, blood pressure in the 200/101 mmHg. was advised to bring patient to the hospital. As per , the paranoia and agitation is worse in the morning but occurs at night as well. Pt has been experiencing loss of short term memory but remote memory has remained intact. Pt and denied any recent adjustment to the prednisone dose of his polymyalgia Rheumatica. No recent infection or sick contact. Pt was recently admitted for recurrent fall resulting in rib fractures and discharged to acute rehab. Pt denied any dizziness, loss of consciousness, change in vision, change in bowel movement or urination. No recent travels. Pt had recent colonoscopy that revealed over a [address] England; according to pt, no intervention was made due to patient's age and comorbidities and family wishes. Head CT completed with no acute pathology. Reviewed note from Dr. 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 Patient much more calm today, no family at bedside. Discussed with him again that will not pursue further imaging at this point. Mental status seems better and patient would like to be out of the hospital. Active Medications Acetaminophen (Tylenol -) 650 mg PO Q4H PRN PRN Reason: PAIN LEVEL 1-5 Last Admin: 03/16/19 00:32 Dose: 650 mg Atorvastatin Calcium (Lipitor -) 20 mg PO HS [facility] Last Admin: 03/16/19 21:34 Dose: 20 mg Docusate Sodium (Colace -) 100 mg PO BID PRN PRN Reason: CONSTIPATION Ferrous Sulfate (Feosol -) 325 mg PO BIDWM [facility] Last Admin: 03/17/19 10:52 Dose: 325 mg Lisinopril (Prinivil) 10 mg PO HS [facility] Last Admin: 03/16/19 21:35 Dose: Not Given Nebivolol (Bystolic -) 5 mg PO DAILY [facility] Last Admin: 03/17/19 10:53 Dose: 5 mg Olanzapine (Zyprexa -) 2.5 mg PO HS [facility] Last Admin: 03/16/19 21:35 Dose: 2.5 mg Prednisone (Deltasone -) 10 mg PO AM [facility] Last Admin: 03/17/19 06:54 Dose: 10 mg Warfarin Sodium (Coumadin -) 2.5 mg PO DAILY@1800 [facility] Last Admin: 03/16/19 18:21 Dose: 2.5 mg PHYSICAL EXAMINATION Vital Signs Period Temp Pulse Resp BP Sys/Scott Pulse Ox Last 24 Hr 97.4 F-98.6 F 62-70 18-20 115-165/56-87 96-98 GENERAL: Awake, alert, and fully oriented, in mod distress. HEAD: Normal with no signs of trauma. EYES: Pupils equal, round and reactive to light, extraocular movements intact, sclera anicteric, conjunctiva clear. No lid lag. EARS, NOSE, THROAT: oropharynx clear with bluish discoloration and lesion in the mucal membranes. Moist mucous membranes. NECK: Normal range of motion, supple without lymphadenopathy, JVD, or masses. LUNGS: Breath sounds equal, clear to auscultation bilaterally. No wheezes, and no crackles. No accessory muscle use. HEART: Regular rate and rhythm, normal S1 and S2 with AV valve replacement murmur but no rub or gallop. ABDOMEN: Soft, nontender, not distended, normoactive bowel sounds, no guarding, no rebound, no masses. No hepatomegaly or splenomegaly. MUSCULOSKELETAL: Normal range of motion at all joints. No bony deformities or tenderness. No CVA tenderness. UPPER EXTREMITIES: 2+ pulses, warm, well-perfused. No cyanosis. No clubbing. No peripheral edema. LOWER EXTREMITIES: 2+ pulses, warm, well-perfused. No calf tenderness. No peripheral edema. NEUROLOGICAL: Cranial nerves II-XII intact. MOves all extremities equally, sensory intact, gait deferred PSYCHIATRIC: Cooperative. Good eye contact. agitated and anxious. MMSE 23/30 SKIN: Warm, dry, normal turgor, seborrheic keratosis and actinic keratosis noted CBCD WBC 6.5 K/mm3 (4.0-10.0) 03/15/19 07:05 RBC 3.73 M/mm3 (4.00-5.60) L 03/15/19 07:05 Hgb 11.0 GM/dL (11.7-16.9) L 03/15/19 07:05 Hct 34.0 % (35.4-49) L 03/15/19 07:05 MCV 91.0 fl (80-96) 03/15/19 07:05 MCHC 32.2 g/dl (32.0-35.9) 03/15/19 07:05 RDW 17.4 % (11.9-15.9) H 03/15/19 07:05 Plt Count 303 K/MM3 (134-434) 03/15/19 07:05 MPV 7.8 fl (7.5-11.1) 03/15/19 07:05 CMP Sodium 140 mmol/L (136-145) 03/15/19 07:05 Potassium 3.6 mmol/L (3.5-5.1) 03/15/19 07:05 Chloride 104 mmol/L (98-107) 03/15/19 07:05 Carbon Dioxide 27 mmol/L (21-32) 03/15/19 07:05 Anion Gap 9 MMOL/L (8-16) 03/15/19 07:05 BUN 16.3 mg/dL (7-18) 03/15/19 07:05 Creatinine 0.9 mg/dL (0.55-1.3) 03/15/19 07:05 Calcium 8.8 mg/dL (8.5-10.1) 03/15/19 07:05 Total Bilirubin 0.6 mg/dL (0.2-1) 03/15/19 07:05 AST 20 U/L (15-37) 03/15/19 07:05 ALT 21 U/L (13-61) 03/15/19 07:05 Alkaline Phosphatase 68 U/L (45-117) 03/15/19 07:05 Total Protein 6.0 g/dl (6.4-8.2) L 03/15/19 07:05 Albumin 2.9 g/dl (3.4-5.0) L 03/15/19 07:05 ASSESSMENT/PLAN: 88 y/o M with PMH of polymyalgia rheumatica, COPD (no longer on home oxygen), Aortic valve disease s/p replacement (on coumadin), LBBB s/p pacemaker , squamous cell carcinoma s/p MOhs surgery, prostate cancer who was brought in by the because of worsening agitation, paranoia, and refusal to groom prior to admission. Patient's discussed her concerns recently with his PCP Dr. Veliz and Dr. Veliz endorsed that he himself has observed the patient becoming more forgetful and more cantankerous over the past several months. Pt and denied any episodes of hallucination or vivid dreaming. The paranoia often entailed the use of cellphones by him and others, hidden papers all around the house. Per this morning, pt woke up frantic and pulling everything out of closets in search of "papers". Measured blood pressure by aide at home, blood pressure in the 200/101 mmHg. was advised to bring patient to the hospital. As per , the paranoia and agitation is worse in the morning but occurs at night as well. Pt has been experiencing loss of short term memory but remote memory has remained intact. Pt and denied any recent adjustment to the prednisone dose of his polymyalgia Rheumatica. No recent infection or sick contact. Pt was recently admitted for recurrent fall resulting in rib fractures and discharged to acute rehab. Pt denied any dizziness, loss of consciousness, change in vision, change in bowel movement or urination. No recent travels. Pt had recent colonoscopy that revealed over a [address] England; according to pt, no intervention was made due to patient's age and comorbidities and family wishes. Head CT completed with no acute pathology. Reviewed note from Dr. 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 Patient fixated on BP during visit, seen with son at bedside. Is able to tell me location, date , name of President. Symptoms seem more due to psych origin. Do not feel he needs further imaging such as MRI at this time. Can re-eval this as outpatient. Would optimize psych and medical issues at this time. Patient much more calm today, with mental status seems better.
--- NOTE | 2019-03-17 15:05 | PN ---
Progress Note (short form) - Note Progress Note: SUBJECTIVE: Still slightly anxious and mildly paranoid. No fever/chills. No headache/photophobia. No complaints of pain/nausea/vomiting/diarrhea. OBJECTIVE: Afebrile, Hemodynamically Stable. Oriented x 3. Last Vital Signs Temp Pulse Resp BP Pulse Ox 98.6 F 68 18 137/61 96 03/17/19 09:53 03/17/19 09:53 03/17/19 09:53 03/17/19 09:53 03/17/19 10:00 Neuro - AAO x 3. Moving all 4 extremities. Heart - S1, S2, soft SM Lungs - clear to auscultation Abdomen - Soft, non-tender. Bowel Sounds normal. Extremities - no edema, no calf tenderness Current Medications Generic Name Dose Route Start Last Admin Trade Name Freq PRN Reason Stop Dose Admin Acetaminophen 650 mg 03/14/19 20:55 03/16/19 00:32 Tylenol - PO 650 mg Q4H PRN Administration PAIN LEVEL 1-5 Atorvastatin Calcium 20 mg 03/14/19 22:00 03/16/19 21:34 Lipitor - PO 20 mg HS JOSELINE Administration Docusate Sodium 100 mg 03/16/19 12:31 Colace - PO BID PRN CONSTIPATION Ferrous Sulfate 325 mg 03/16/19 17:30 03/17/19 10:52 Feosol - PO 325 mg BIDWM JOSELINE Administration Lisinopril 10 mg 03/14/19 20:56 03/16/19 21:35 Prinivil PO Not Given HS JOSELINE Nebivolol 5 mg 03/15/19 10:00 03/17/19 10:53 Bystolic - PO 5 mg DAILY JOSELINE Administration Olanzapine 2.5 mg 03/15/19 22:00 03/16/19 21:35 Zyprexa - PO 2.5 mg HS JOSELINE Administration Prednisone 10 mg 03/15/19 07:00 03/17/19 06:54 Deltasone - PO 10 mg AM JOSELINE Administration Warfarin Sodium 2.5 mg 03/15/19 18:00 03/16/19 18:21 Coumadin - PO 2.5 mg DAILY@1800 JOSELINE Administration Home Medications Medication Instructions Recorded Nebivolol HCl [Bystolic] 5 mg PO DAILY 10/01/14 predniSONE [Deltasone -] 15 mg PO AM 10/01/14 Atorvastatin Ca [Lipitor] 20 mg PO HS 03/25/16 Cholecalciferol (Vitamin D3) 1,000 unit PO DAILY 03/25/16 [Vitamin D3 -] Docusate Sodium [Stool Softener] 100 mg PO BID 02/01/19 Acetaminophen [Tylenol .Regular 650 mg PO Q6H PRN tablet 02/05/19 Strength -] Warfarin Na [Coumadin -] 2.5 mg PO ASDIR #1 tab 02/05/19 Ferrous Sulfate [Feosol] 325 mg PO BIDWM #60 ud 03/16/19 ASSESSMENT AND PLAN: 88 year old male with history of PMR (on Steroid) , COPD, AV stenosis s/p TAVR , LBBB s/p PPM, SCC s/p MOHS, on Coumadin (reason unclear), brought in by due to agitation at home, increasing forgetfulness, and paranoia. CT HEAD neg for acute intracranial findings. ECG - SR, LBBB, non-specific T wave abnormalities, QTc 492 1. Anxiety/Agitation/Paranoia - improving. 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 MMSE 23/[address] head - no acute findings. No clinical or radiological findings of CVA. TSH wnl, RPR non-reactive, B12 - 681. Zyprexa added by Psych at bedtime. Will give another 2.5mg Zyprexa now and monitor response. Neurology consulted by Dr. Haro. 2. HTN - Hypertensive on presentation - now normotensive on resuming home meds including Nebivolol. Lisinopril added. 3. Normocytic anemia sec to chronic disease, Iron Sat 17% (borderline), B12 level 681, Folate 9. No evidence of active GI blood loss. H/H Stable. Iron supplementation started. Had prior Colonoscopy showing multiple polyps. For discussion of further Ix as out-patient. 4. PMR - continue Prednisone. 5. AV Stenosis s/p TAVR - on BB/Statin. 6. Atrial Fibrillation - continue BB and Coumadin. DVT Px - on Coumadin Visit type - Emergency Visit Emergency Visit: Yes ED Registration Date: 03/14/19 Care time: The patient presented to the Emergency Department on the above date and was hospitalized for further evaluation of their emergent condition. - New Patient This patient is new to me today: No - Critical Care Critical Care patient: No - Discharge Referral Referred to [facility] Med P.C.: No
[2019-03-17] MEDS: WARFARIN NA 2.5 MG TABLET (FP) PO SCH (18:01)
[2019-03-17] MEDS: ATORVASTATIN CA 20 MG TABLET (FP) PO SCH (21:19)
[2019-03-17] MEDS: LISINOPRIL 10 MG TABLET (FP) PO SCH (21:19)
[2019-03-17] MEDS: OLANZapine 2.5 MG TABLET PO SCH (21:20)
[2019-03-18] MEDS: predniSONE 10 MG TABLET (UD) PO SCH (06:03)
[2019-03-18 09:32] VITALS: BP 124/58; PULSE 80; TEMP 97.9
--- NOTE | 2019-03-18 09:50 | PN ---
Progress Note (short form) - Note Progress Note: Hospitalist to document today. Reviewed notes of Psychiatry and Neuro MD's. Patient is still confused this AM; can't remember if he slept well last nite. Incessantly looking at his med list and forgetting the name of several of them and asking again and again about his new med Zyprexa. Still having an angry type mood and unhappy about everything. May need adjustment of medicine before discharge.
[2019-03-18 10:46] LABS: BASO % 0.7 % (0-2.0); EOS % 1.3 % (0-4.5); HEMATOCRIT 34.6 % (35.4-49); HEMOGLOBIN 11.3 GM/dL (11.7-16.9); LYMPH % 9.4 % (8-40); MCH 29.5 pg (25.7-33.7); MCHC 32.5 g/dl (32.0-35.9); MEAN CELL VOLUME 90.7 fl (80-96); MEAN PLT VOLUME 7.4 fl (7.5-11.1); MONO % 5.2 % (3.8-10.2); NEUT % 83.4 % (42.8-82.8); PLATELET COUNT 307 K/MM3 (134-434); RBC 3.82 M/mm3 (4.00-5.60); RDW 17.4 % (11.9-15.9); WHITE BLOOD COUNT 8.4 K/mm3 (4.0-10.0)
[2019-03-18] MEDS: NEBIVOLOL 5 MG TABLET (FP) PO SCH (10:46)
[2019-03-18] MEDS: FERROUS SO4 325 MG TABLET (FP) PO SCH (10:47)
[2019-03-18 11:21] LABS: BLOOD UREA NITROGEN 16.5 mg/dL (7-18); CALCIUM 8.6 mg/dL (8.5-10.1); CREATININE 1.1 mg/dL (0.55-1.3); POTASSIUM 3.9 mmol/L (3.5-5.1)
[2019-03-18 11:26] LABS: INR 2.46 (0.83-1.09); PROTHROMBIN TIME (PATIENT) 29.3 SEC (9.7-13.0)
[2019-03-18] MEDS ORDERED: OLANZapine 5 MG TABLET PO SCH (11:45)
--- NOTE | 2019-03-18 13:01 | DS ---
Physical Exam: SUBJECTIVE: Patient seen and examined OBJECTIVE: Vital Signs Period Temp Pulse Resp BP Sys/Scott Pulse Ox Last 24 Hr 97.2 F-98.1 F 65-80 18-20 92-132/48-58 96-96 PHYSICAL EXAM GENERAL: NAD, A&Ox4 HEAD: NC/AT, mild quaker wasting EYES: sclera anicteric, conjunctiva clear. ENT: oropharynx w/o exudate, moist mucous membranes. NECK: Trachea midline, full range of motion, supple. LUNGS: Breath sounds equal, clear to auscultation bilaterally, no wheezes, no crackles, no accessory muscle use. HEART: Regular rate and rhythm, S1, S2. Left upper chest with palpable PPM, no sternotomy wound ABDOMEN: Soft, nontender, nondistended, no guarding, no rebound, no hepatosplenomegaly, no masses. EXTREMITIES: 2+ pulses, warm, well-perfused, no edema. No bruising to elbows/ knees NEUROLOGICAL: Cranial nerves II through XII grossly intact. Normal speech PSYCH: mild agitation SKIN: Warm, dry, normal turgor, no rashes or lesions noted LABS Laboratory Results - last 24 hr 03/18/19 03/18/19 03/18/19 10:20 10:20 10:20 WBC 8.4 RBC 3.82 L Hgb 11.3 L Hct 34.6 L MCV 90.7 MCH 29.5 MCHC 32.5 RDW 17.4 H Plt Count 307 MPV 7.4 L Absolute Neuts (auto) 7.0 Neutrophils % 83.4 H D Lymphocytes % 9.4 D Monocytes % 5.2 Eosinophils % 1.3 Basophils % 0.7 Nucleated RBC % 0 PT with INR 29.30 H INR 2.46 H Sodium 138 Potassium 3.9 Chloride 102 Carbon Dioxide 28 Anion Gap 8 BUN 16.5 Creatinine 1.1 Est GFR (CKD-EPI)AfAm 70.08 Est GFR (CKD-EPI)NonAf 60.46 Random Glucose 165 H Calcium 8.6 HOSPITAL COURSE: 88 y/o M with PMH of polymyalgia rheumatica(chronic prednisone), COPD( no longer on home oxygen),Aortic valve disease s/p AVR, pAF(coumadin), LBBB s/p pacemaker, BCC s/p MOhs surgery, prostate cancer(not a surgical candidate) who was brought in by the because of worsening agitation, paranoia, HTN(SBP 200s). Admitted for worsening agitation, r/o pathologic cause. Date of Admission:03/14/19 Date of Discharge: 03/18/19 Minutes to complete discharge: 20 Discharge Summary Problems reviewed: Yes Reason For Visit: AMS Current Active Problems Agitation (Acute) Altered mental status (Acute) Condition: Stable - Instructions Diet, Activity, Other Instructions: Your visit You were admitted to the hospital because you have been having altered behavior. You were evaluated by neurology and psychiatry and you were started on a new medication, Zyprexa. You were also found to have elevated blood pressure. You were started on a new medication, Lisinopril, that improved your blood pressure. Please continue taking this medication at home. Medications Please take the following medication as prescribed: 1. Zyprexa 5 mg at bedtime. 2. Lisinopril 10 mg daily. Continue your other home medications. Follow up Please follow up with your primary care provider (Dr. Haro) within 1 week , followup bloodwork in 2weeks to check your electrolytes and creatinine. Please follow up with neurology (Dr. Snyder) within 1 week. Please follow up with psychiatry (Dr. Castillo) within 2 weeks. Additional info Please call 911 or go to the ED if with any worsening fever, chills, headache, dizziness, chest pain, shortness of breath, abdominal pain, diarrhea, or any new concerns noted. Referrals: Priti Castillo MD [Staff Physician] - Willie Haro MD [Primary Care Provider] - Elvin Snyder MD [Staff Physician] - Disposition: HOME - Home Medications Comprehensive Discharge Medication List: Ambulatory Orders Nebivolol HCl [Bystolic] 5 mg PO DAILY 10/01/14 predniSONE [Deltasone -] 15 mg PO AM 10/01/14 Atorvastatin Ca [Lipitor] 20 mg PO HS 03/25/16 Cholecalciferol (Vitamin D3) [Vitamin D3 -] 1,000 unit PO DAILY 03/25/16 Docusate Sodium [Stool Softener] 100 mg PO BID 02/01/19 Acetaminophen [Tylenol .Regular Strength -] 650 mg PO Q6H PRN tablet 02/05/19 Warfarin Na [Coumadin -] 2.5 mg PO ASDIR #1 tab 02/05/19 Ferrous Sulfate [Feosol] 325 mg PO BIDWM #60 ud 03/16/19 Lisinopril [Prinivil] 10 mg PO HS #30 tablet 03/18/19 Olanzapine [Zyprexa -] 5 mg PO HS #30 tablet 03/18/19 This patient is new to me today: No Emergency Visit: No Critical Care patient: No - Discharge Referral Referred to [facility] Med P.C.: No ATTENDING PHYSICIAN STATEMENT I saw and evaluated the patient. I reviewed the resident's note and discussed the case with the resident. I agree with the resident's findings and plan as documented. SUBJECTIVE: OBJECTIVE: ASSESSMENT AND PLAN:
--- NOTE | 2019-03-18 13:03 | PN ---
Teaching Attending Note Name of Resident: Balaji Juarez ATTENDING PHYSICIAN STATEMENT I saw and evaluated the patient. I reviewed the resident's note and discussed the case with the resident. I agree with the resident's findings and plan as documented. SUBJECTIVE: Still slightly anxious and emotionally labile. No fever/chills. No headache/photophobia. No complaints of pain/nausea/vomiting/diarrhea. OBJECTIVE: Afebrile, Hemodynamically Stable. Oriented x 3. Still mildly anxious , tearful, emotional labile. Last Vital Signs Temp Pulse Resp BP Pulse Ox 97.9 F 80 18 124/58 L 96 03/18/19 09:31 03/18/19 09:31 03/18/19 09:31 03/18/19 09:31 03/18/19 08:51 Neuro - AAO x 3. Moving all 4 extremities. Heart - S1, S2, soft SM Lungs - clear to auscultation Abdomen - Soft, non-tender. Bowel Sounds normal. Extremities - no edema, no calf tenderness Laboratory Results - last 24 hr 03/18/19 03/18/19 03/18/19 10:20 10:20 10:20 WBC 8.4 RBC 3.82 L Hgb 11.3 L Hct 34.6 L MCV 90.7 MCH 29.5 MCHC 32.5 RDW 17.4 H Plt Count 307 MPV 7.4 L Absolute Neuts (auto) 7.0 Neutrophils % 83.4 H D Lymphocytes % 9.4 D Monocytes % 5.2 Eosinophils % 1.3 Basophils % 0.7 Nucleated RBC % 0 PT with INR 29.30 H INR 2.46 H Sodium 138 Potassium 3.9 Chloride 102 Carbon Dioxide 28 Anion Gap 8 BUN 16.5 Creatinine 1.1 Est GFR (CKD-EPI)AfAm 70.08 Est GFR (CKD-EPI)NonAf 60.46 Random Glucose 165 H Calcium 8.6 Current Medications Generic Name Dose Route Start Last Admin Trade Name Freq PRN Reason Stop Dose Admin Acetaminophen 650 mg 03/14/19 20:55 03/16/19 00:32 Tylenol - PO 650 mg Q4H PRN Administration PAIN LEVEL 1-5 Atorvastatin Calcium 20 mg 03/14/19 22:00 03/17/19 21:19 Lipitor - PO 20 mg HS JOSELINE Administration Docusate Sodium 100 mg 03/16/19 12:31 03/18/19 10:56 Colace - PO 100 mg BID PRN Administration CONSTIPATION Ferrous Sulfate 325 mg 03/16/19 17:30 03/18/19 10:47 Feosol - PO 325 mg BIDWM JOSELINE Administration Nebivolol 5 mg 03/15/19 10:00 03/18/19 10:46 Bystolic - PO 5 mg DAILY JOSELINE Administration Olanzapine 5 mg 03/18/19 11:45 Zyprexa - PO HS JOSELINE Prednisone 10 mg 03/15/19 07:00 03/18/19 06:03 Deltasone - PO 10 mg AM JOSELINE Administration Warfarin Sodium 2.5 mg 03/15/19 18:00 03/17/19 18:01 Coumadin - PO 2.5 mg DAILY@1800 JOSELINE Administration Home Medications Medication Instructions Recorded Nebivolol HCl [Bystolic] 5 mg PO DAILY 10/01/14 predniSONE [Deltasone -] 15 mg PO AM 10/01/14 Atorvastatin Ca [Lipitor] 20 mg PO HS 03/25/16 Cholecalciferol (Vitamin D3) 1,000 unit PO DAILY 03/25/16 [Vitamin D3 -] Docusate Sodium [Stool Softener] 100 mg PO BID 02/01/19 Acetaminophen [Tylenol .Regular 650 mg PO Q6H PRN tablet 02/05/19 Strength -] Warfarin Na [Coumadin -] 2.5 mg PO ASDIR #1 tab 02/05/19 Ferrous Sulfate [Feosol] 325 mg PO BIDWM #60 ud 03/16/19 ASSESSMENT AND PLAN: 88 year old male with history of PMR (on Steroid) , COPD, AV stenosis s/p TAVR , LBBB s/p PPM, SCC s/p MOHS, on Coumadin (reason unclear), brought in by due to agitation at home, increasing forgetfulness, and paranoia. CT HEAD neg for acute intracranial findings. ECG - SR, LBBB, non-specific T wave abnormalities, QTc 492 1. Anxiety/Agitation/Paranoia - improving. 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 MMSE 23/[address] head - no acute findings. No clinical or radiological findings of CVA. TSH wnl, RPR non-reactive, B12 - 681. Zyprexa added by Psych at bedtime. Has been tolerating total daily dose of 5mg. Will discharge with 5mg daily. Neurology consulted by Dr. Haro - nothing added to treatment regimen by Neurology. Further anti-psychotic medication titration by PCP and Dr. Castillo as out- patient. 2. HTN - Hypertensive on presentation - now normotensive on resuming home meds including Nebivolol. Will discontinue Lisinopril added in hospital due to borderline BP readings. 3. Normocytic anemia sec to chronic disease, Iron Sat 17% (borderline), B12 level 681, Folate 9. No evidence of active GI blood loss. H/H Stable. Iron supplementation started. Had prior Colonoscopy showing multiple polyps. For discussion of further Ix as out-patient. 4. PMR - continue Prednisone. 5. AV Stenosis s/p TAVR - on BB/Statin. 6. Atrial Fibrillation - continue BB and Coumadin. DVT Px - on Coumadin Medically stable for discharge home in care of his who declines SNF. Further up-titration of psychiatric meds by PCP/Psychiatry.
== END 2019-03-18 14:25 | disposition home or self-care (01) | DRG 884 ==
LOC: JER 14:56 → SUPCPDRO 14:56 → JERBED 18:45 → J5S 20:59
PROVIDERS: ADMIT Internal Medicine
DX: F03.91 Unspecified dementia, unspecified severity, with behavioral disturbance (principal); I16.9 Hypertensive crisis, unspecified; I10 Essential (primary) hypertension; I48.91 Unspecified atrial fibrillation; I25.10 Atherosclerotic heart disease of native coronary artery without angina pectoris; M06.9 Rheumatoid arthritis, unspecified; I44.7 Left bundle-branch block, unspecified; E88.09 Other disorders of plasma-protein metabolism, not elsewhere classified; D64.9 Anemia, unspecified; J44.9 Chronic obstructive pulmonary disease, unspecified; R94.31 Abnormal electrocardiogram [ECG] [EKG]; F20.9 Schizophrenia, unspecified; M35.3 Polymyalgia rheumatica; Z85.46 Personal history of malignant neoplasm of prostate; Z79.01 Long term (current) use of anticoagulants; Z95.2 Presence of prosthetic heart valve
CPT/HCPCS: 36415; 70450-TC; 80048; 80053; 81003; 82607; 82728; 82746; 83540; 83550; 83735; 84100; 84443; 85025; 85044; 85610; 85730; 86593; 87086; 93005; 93010; 97116-GP; 97162-GP; 99283-25

== ENCOUNTER 2019-05-01 20:53 | Inpatient (IN) | payer OTHER, MEDICARE ==
--- NOTE | 2019-05-01 21:11 | PDOC ---
History of Present Illness - General Chief Complaint: Irregular Heart Beat Stated Complaint: ABNORMAL EKG Time Seen by Provider: 05/01/19 21:10 History Source: Patient Exam Limitations: No Limitations - History of Present Illness Initial Comments: 05/01/19 21:10 Saul Yeung is an 88M with PMH CAD s/p pacer, aortic valve replacement, Afib on Bystolic and Coumadin, CHF, presenting from [facility] for rapid afib and weakness. Was in [facility], discharged 2 days ago for CHF exacerbation. Now at [facility] for rehab, was doing physical therapy today, felt weak. Found to be in Afib with RVR. Previously on Bystolic daily, but was discharged to [facility] without the medication on his medication list and has not been receiving it. [facility] ED contacted, unclear reason why this medication was not included. 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 At this time denies LE edema, fever/chills, chest pain, SOB, abd pain, urinary sx, XIE, dizziness, syncope. Just says that he feels weak and a bit sore after the PT today. Past History - Past Medical History Allergies/Adverse Reactions: Allergies Allergy/AdvReac Type Severity Reaction Status Date / Time codeine Allergy Nausea Verified 05/02/19 12:19 Home Medications: Ambulatory Orders predniSONE [Deltasone -] 15 mg PO AM 10/01/14 Atorvastatin Ca [Lipitor] 20 mg PO HS 03/25/16 Cholecalciferol (Vitamin D3) [Vitamin D3 -] 1,000 unit PO DAILY 03/25/16 Acetaminophen [Tylenol .Regular Strength -] 650 mg PO Q6H PRN tablet 02/05/19 Aspirin [Aspirin EC] 81 mg PO DAILY 05/01/19 Benzocaine/Menthol [Cepacol Sore Throat Lozenge] 1 each MM QID 05/01/19 Benzonatate 300 mg PO TID 05/01/19 Donepezil HCl [Aricept -] 5 mg PO DAILY 05/01/19 Memantine HCl [Namenda -] 5 mg PO DAILY 05/01/19 Warfarin Na [Coumadin -] 5 mg PO ASDIR 05/01/19 clonazePAM [Klonopin -] 0.5 mg PO BID 05/01/19 Docusate Sodium [Colace] 100 mg PO BID 05/02/19 Ferrous Sulfate 325 mg PO BID 05/02/19 Anemia: No Asthma: No 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) Cardiac Disorders: (afib) CVA: No COPD: Yes (USES O2 PRN DURING EXERCISE) CHF: No Dementia: No Diabetes: No GI Disorders: No Disorders: Yes (PROSTATE DIAG X 3 MONTHS AGO) HTN: Yes Hypercholesterolemia: Yes Liver Disease: No Seizures: No Thyroid Disease: No - Surgical History Abdominal Surgery: No Appendectomy: No Cardiac Surgery: No Cholecystectomy: No Lung Surgery: No Neurologic Surgery: No Orthopedic Surgery: No - Psycho Social/Smoking Cessation Hx Smoking History: Never smoked Have you smoked in the past 12 months: No Hx Alcohol Use: Yes (RARE) Drug/Substance Use Hx: No Substance Use Type: Alcohol Hx Substance Use Treatment: No Review of Systems - Review of Systems Able to Perform ROS?: Yes Constitutional: No: Symptoms Reported HEENTM: No: Symptoms Reported Respiratory: No: Symptoms reported Cardiac (ROS): No: Chest Pain, Edema, Irregular Heart Rate, Lightheadedness, Palpitations, Chest Tightness ABD/GI: No: Symptoms Reported : No: Symptoms Reported Musculoskeletal: No: Symptoms Reported Integumentary: No: Symptoms Reported Neurological: Yes: Weakness Endocrine: No: Symptoms Reported Hematologic/Lymphatic: No: Symptoms Reported All Other Systems: Reviewed and Negative *Physical Exam - Physical Exam General Appearance: Yes: Nourished, Appropriately Dressed, Thin. No: Apparent Distress HEENT: positive: EOMI, FANY, Normal Voice, Symmetrical, Hearing Grossly Normal. negative: Normal ENT Inspection, Pharynx Normal (dry mouth), Scleral Icterus ( R), Scleral Icterus (L), Pharyngeal Erythema, Tonsillar Exudate, Tonsillar Erythema Neck: positive: Trachea midline, Normal Thyroid, Supple. negative: Tender, Lymphadenopathy (R), Lymphadenopathy (L) Respiratory/Chest: positive: Lungs Clear, Normal Breath Sounds, Crackles ( bilateral lung bases). negative: Chest Tender, Respiratory Distress, Accessory Muscle Use, Rales, Rhonchi, Stridor, Wheezing Cardiovascular: positive: Tachycardia, Irregularly Irregular. negative: Edema, Murmur Gastrointestinal/Abdominal: positive: Normal Bowel Sounds, Flat, Soft. negative : Tender, Organomegaly, Pulsatile Mass, Guarding, Rebound Musculoskeletal: positive: Normal Inspection. negative: CVA Tenderness, Vertebral Tenderness Extremity: positive: Normal Capillary Refill, Normal Inspection, Normal Range of Motion, Pelvis Stable. negative: Tender Integumentary: positive: Dry, Warm. negative: Normal Color (pale appearing, no jaundice) Neurologic: positive: Fully Oriented, Alert, Normal Mood/Affect, Normal Response ED Treatment Course - LABORATORY CBC & Chemistry Diagram: 05/02/19 05:43 05/02/19 05:43 Medical Decision Making - Medical Decision Making 05/01/19 21:10 Saul Yeung is an 88M with PMH CAD s/p pacer, aortic valve replacement, Afib on Bystolic and Coumadin, CHF, presenting from [facility] for rapid afib and weakness. Upon arrival in ED, HR 160s ECG shows AFIB with RVR, no evidence of ischemic changes or TWI. Given 2x 5mg Lopressor and Hr down to 100 from 160. 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 Physical Exam: - tachy afib no murmur - bibasilar crackles consistent with CHF vs. PNA - no pedal edema - facial ulceration with necrotic eschar, known BCC - dry mouth, poor skin turgor Labs notable for: - BNP 2600 - Cr 1.8 up from 1.1 consistent with CICI, likely 2/2 dehydration Admit for CHF exacerbation/ Afib with RVR / CICI 05/02/19 00:11 Discussed case with JASMYNE Anderson, admit to tele under Dr. Garvey. 05/02/19 01:37 Patient still having HR 130s despite 2L NS. Giving 5mg more Lopressor with 500mg NS bolus. Beta blockers temporarily control, BP persists at 85/60 despite fluids, but rises to high 90s when HR 90s. Considering cardizem drip for AFIB w/ RVR, calling ICU for consult. 05/02/19 06:39 ICU evaluated patient, does not need ICU at this time. Giving digoxin bolus to control HR without hypotensive effect. Will continue to monitor HR overnight. Discharge - Discharge Information Problems reviewed: Yes Clinical Impression/Diagnosis: CICI (acute kidney injury), Atrial fibrillation with RVR CHF exacerbation Qualifiers: Heart failure type: diastolic Qualified Code(s): I50.33 - Acute on chronic diastolic (congestive) heart failure Condition: Stable - Admission Yes - Follow up/Referral - Patient Discharge Instructions - Post Discharge Activity
[2019-05-01] MEDS ORDERED: METOPROLOL TARTRATE 5 MG/5 ML VIAL IVPUSH ONE ×2 (21:34→22:05)
[2019-05-01] MEDS ORDERED: SODIUM CHLORIDE 0.9% 1000 ML INFUS.BAG IV ONE (21:39)
[2019-05-01] MEDS ORDERED: METOPROLOL TARTRATE 5 MG/5 ML VIAL ONE ×2 (21:47→22:14)
[2019-05-01 21:53] LABS: BASO % 0.6 % (0-2.0); EOS % 0.4 % (0-4.5); HEMATOCRIT 32.6 % (35.4-49); LYMPH % 15.2 % (8-40); MCH 29.9 pg (25.7-33.7); MCHC 33.8 g/dl (32.0-35.9); MEAN CELL VOLUME 88.5 fl (80-96); MEAN PLT VOLUME 7.7 fl (7.5-11.1); MONO % 10.1 % (3.8-10.2); NEUT % 73.7 % (42.8-82.8); PLATELET COUNT 450 K/MM3 (134-434); RBC 3.68 M/mm3 (4.00-5.60); RDW 16.6 % (11.9-15.9); WHITE BLOOD COUNT 8.8 K/mm3 (4.0-10.0)
[2019-05-01 22:04] LABS: PROTHROMBIN TIME (PATIENT) 49.1 SEC (9.7-13.0)
--- NOTE | 2019-05-01 22:05 | PDOC ---
Documentation entered by Oumar Haley SCRIBE, acting as scribe for Ciara Ascencio DO. Ciara Ascencio DO: This documentation has been prepared by the Tera padilla Daniel, SCRIBE, under my direction and personally reviewed by me in its entirety. I confirm that the documentation accurately reflects all work, treatment, procedures, and medical decision making performed by me. Attending Attestation - Resident Resident Name: FerminBryant - ED Attending Attestation I have performed the following: I have examined & evaluated the patient, The case was reviewed & discussed with the resident, I agree w/resident's findings & plan, Exceptions are as noted - HPI HPI: 05/01/19 21:42 The patient is an 88 year old male with a past medical history of Polymyalgia rheumatica, COPD, Aortic valve replacement, afib (Coumadin), pacemaker, HTN, and NPH here today from [facility] for evaluation of tachycardia and generalized weakness. The patient reports that he feels very weak, that his heart is racing , and feels nauseous. Patients states that the patient went to physical therapy today and was weak and that the patient was at [facility] on Monday and was sent to [facility]. She also notes that the patient has had poor PO intake recently. Patient denies headache, lightheadedness. Denies fever, chills. Denies chest pain, shortness of breath. Denies vomiting, diarrhea, abdominal pain. Denies lower extremity edema. Allergies: codeine - Physicial Exam PE: 05/01/19 21:42 Constitutional: +lethargic. +pale. Awake, oriented. No acute distress. Head: Normocephalic. Atraumatic Eyes: PERRL. EOMI. Conjunctivae are not pale. ENT: Mucous membranes are moist and intact. Posterior pharynx without exudates or erythema. Uvula midline. Neck: Supple. Full ROM. No lymphadenopathy. Cardiovascular: +tachycardia and irregularly irregular. +pacer left chest wall. S1, S2 regular. Distal pulses are 2+ and symmetric. Pulmonary/Chest: +bibasilar crackles. No evidence of respiratory distress. No wheezing, rales or rhonchi. Abdominal: Soft and non-distended. There is no tenderness. No rebound, guarding or rigidity. No organomegaly. No palpable masses. Good bowel sounds. Back: No CVA tenderness. Musculoskeletal: No edema. No cyanosis. No clubbing. Full range of motion in all extremities. No calf tenderness. Radial/pedal pulses are intact and 2+ bilaterally Skin: Skin is warm and dry. No petechiae. No purpura. Neurological: +general weakness. Alert and oriented to person, place, and time. Cranial nerves II-XII are grossly intact. Normal speech. Strength is grossly symmetric. No sensory deficits. Psychiatric: Good eye contact. Normal interaction, affect and behavior. - Critical Care Time Total Critical Care Time: 60 Critical Care Statement: The care of this patient involved high complexity decision making to prevent further life threatening deterioration of the patient 's condition and/or to evaluate & treat vital organ system(s) failure or risk of failure. - Medical Decision Making 05/01/19 21:45 I, Dr. Ciara Ascencio, DO, attest that this document has been prepared under my direction and personally reviewed by me in its entirety. I further attest, that it accurately reflects all work, treatment, procedures and medical decision -making performed by me. a/p: 88yo male from [facility] for eval of afib w rvr -pt with hx of LBBB -hx of recent hospitalization at [facility] 2 days ago for sob and "heart problems" -pt arrives c/o generalized weakness -pt did a lot of PT today, did not eat or drink well -per the , chronic anemia -will send labs, ekg, cxr -hx of pacer -per [facility] - was on bystolic but it was held at the end of the hospitalization, on coumadin, echo 04/25 showed an EF of 51% and diastolic dysfunction 05/01/19 22:05 after 5mg iv lopressor HR 120 and BP 99systolic - improving will give 5mg iv lopressor more 05/01/19 22:24 mildly elevated trop bnp 1999 cxr shows nodule and mild congestion - suspect 2nd to afib rvr hr now [address] Joesph and microblog sent to [employer] 05/01/19 22:[address] Hercules who will check the EMR tomorrow for sonora and will see patient in consult 05/01/19 23:02 [facility]blog [facility] to [facility] HR 110 pt from [place] - FLAVIO Beasley 05/02/19 00:08 resident discussed the case with hermelinda -JASMYNE mcdowell who accepts pt to service Heart Score/ECG Review - ECG Intrepretation Comment:: 05/01/19 21:51 afib w rvr at 165, lbbb, l axis, lvh, pvc, st depression laterally- abnl ekg
[2019-05-01 22:07] LABS: ACTIVATED PTT 49.1 SECONDS (25.2-36.5)
[2019-05-01 22:17] LABS: ALBUMIN 3.2 g/dl (3.4-5.0); BILIRUBIN,TOTAL 1.1 mg/dL (0.2-1); BLOOD UREA NITROGEN 40.8 mg/dL (7-18); CALCIUM 8.9 mg/dL (8.5-10.1); CREATININE 1.8 mg/dL (0.55-1.3); MAGNESIUM 2.2 mg/dL (1.8-2.4); TOT PROT 7.3 g/dl (6.4-8.2)
[2019-05-01 22:30] LABS: INR 4.1 (0.83-1.09)
[2019-05-01] MEDS ORDERED: SODIUM CHLORIDE 0.9% 500 ML INFUS.BAG IV ONE (23:07)
--- NOTE | 2019-05-02 00:34 | HP ---
Admitting History and Physical - Primary Care Physician PCP: Willie Haro ([facility]- for STR) - Admission Chief Complaint: Weakness, Afib with RVR History of Present Illness: This is a 88 year old man with a past medical history of Polymyalgia Rheumatica , COPD, Aortic Valve Replacement, Afib (Bystolic,Coumadin), LBBB, s/p Pacemaker , HTN, HLD,Squamous Cell Ca s/p Mohs Surgery, Prostate Ca. Who presents to the ED from [facility] for STR for evaluation of tachycardia and generalized weakness. The patient reports that he feels very weak, that his heart is racing , and feels nauseous. Patients states that the patient went to physical therapy today and was weak and that the patient was at [facility] on Monday and was sent to [facility]. She also notes that the patient has had poor PO intake recently. Patient denies headache, lightheadedness. Denies fever, chills. Denies chest pain, shortness of breath. Denies vomiting, diarrhea, abdominal pain. Denies lower extremity edema. 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) Pulmonary: Yes: COPD, Other (Three week history of shortness of breat.) Renal/: Yes: Cancer (Prostate) Rheumatology: Yes: Other (Polymyalgia rheumatica) Dermatology: Yes: Basal Cell, Squamous Cell - Past Surgical History Past Surgical History: Yes: Permanent Pacemaker Additional Past Surgical History: Mohs - Smoking History Smoking history: Former smoker Have you smoked in the past 12 months: No - Alcohol/Substance Use Hx Alcohol Use: Yes (RARE) History of Substance Use: reports: None - Social History Usual Living Arrangement: Yes: Longterm ADL: Independent 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 History of Recent Travel: No Home Medications - Allergies Allergies/Adverse Reactions: Allergies Allergy/AdvReac Type Severity Reaction Status Date / Time codeine Allergy Nausea Verified 05/02/19 12:19 - Home Medications Home Medications: Ambulatory Orders predniSONE [Deltasone -] 15 mg PO AM 10/01/14 Atorvastatin Ca [Lipitor] 20 mg PO HS 03/25/16 Cholecalciferol (Vitamin D3) [Vitamin D3 -] 1,000 unit PO DAILY 03/25/16 Acetaminophen [Tylenol .Regular Strength -] 650 mg PO Q6H PRN tablet 02/05/19 Aspirin [Aspirin EC] 81 mg PO DAILY 05/01/19 Benzocaine/Menthol [Cepacol Sore Throat Lozenge] 1 each MM QID 05/01/19 Benzonatate 300 mg PO TID 05/01/19 Donepezil HCl [Aricept -] 5 mg PO DAILY 05/01/19 Memantine HCl [Namenda -] 5 mg PO DAILY 05/01/19 Warfarin Na [Coumadin -] 5 mg PO ASDIR 05/01/19 clonazePAM [Klonopin -] 0.5 mg PO BID 05/01/19 Docusate Sodium [Colace] 100 mg PO BID 05/02/19 Ferrous Sulfate 325 mg PO BID 05/02/19 Olanzapine 5 mg PO HS 05/04/19 Family Medical History Family History: Unable to Obtain Physical Examination Vital Signs: Vital Signs Temperature 98.4 F 05/01/19 21:10 Pulse Rate 119 H 05/01/19 22:19 Respiratory Rate 18 05/01/19 22:19 Blood Pressure 95/56 L 05/01/19 22:19 O2 Sat by Pulse Oximetry (%) 95 05/01/19 22:19 Constitutional: Yes: Pallor, Other (lethargic) Eyes: Yes: Conjunctiva Clear, PERRL HENT: Yes: WNL, Atraumatic, Normocephalic Neck: Yes: WNL, Supple, Trachea Midline Cardiovascular: Yes: Tachycardia, Pulse Irregular, Other (pacer LCW) Respiratory: Yes: Other (bibasilar crackles) Gastrointestinal: Yes: WNL, Normal Bowel Sounds, Soft ...Rectal Exam: Yes: Deferred Renal/: Yes: WNL Breast(s): Yes: WNL Musculoskeletal: Yes: WNL Extremities: Yes: WNL Edema: No Peripheral Pulses WNL: Yes Neurological: Yes: Lethargy, Weakness ...Motor Strength: WNL Psychiatric: Yes: Oriented (to name, person) Labs: CBC, BMP 05/01/19 21:31 05/01/19 21:31 Imaging - Results Chest X-ray: Image Reviewed EKG: Image Reviewed Problem List - Problems (1) Atrial fibrillation with RVR Assessment/Plan: Likely possible due to missed medications while at [place] (Bystolic) Metoprolol IV given x2 in ED still not rate controlled Digoxin IV given in ED for rate control slight improvement Cardiology consulted per ED attending Continue cardiac monitoring Serial Enzymes EKG- Afib RVR Echo [id number] 5 Hold Coumadin for now secondary to Supratherapuetic level 4.1 Series INRs Code(s): I48.91 - UNSPECIFIED ATRIAL FIBRILLATION (2) Elevated troponin Assessment/Plan: likely secondary to ischemic demand serial enzymes appreciate cardiology consult EKG- afib with RVR Continue cardiac monitoring Code(s): R79.89 - OTHER SPECIFIED ABNORMAL FINDINGS OF BLOOD CHEMISTRY (3) CICI (acute kidney injury) Code(s): N17.9 - ACUTE KIDNEY FAILURE, UNSPECIFIED (4) Hypertension Assessment/Plan: Hold home meds secondary to hypotension Continue cardiac monitoring Will hold fluids secondary to CHF Code(s): I10 - ESSENTIAL (PRIMARY) HYPERTENSION Qualifiers: Hypertension type: essential hypertension Qualified Code(s): I10 - Essential (primary) hypertension Assessment/Plan This is a 88 year old man with a past medical history of Polymyalgia Rheumatica , COPD, Aortic Valve Replacement, Afib (Bystolic,Coumadin), LBBB, s/p Pacemaker , HTN, HLD,Squamous Cell Ca s/p Mohs Surgery, Prostate Ca. Admitted to Telemetry for Afib with RVR for further evaluation of their emergent condition. Plan: See Problem List FEN Replete lytes prn Low Na Diet- Mechanical Soft DVT ppx OOB SCDs Hold Coumadin- Supratherapeutic Code Status: Full Code Dispo: Requires Inpatient Care, may require upgrade to ICU secondary to HR and Hypotension Visit type - Emergency Visit Emergency Visit: Yes ED Registration Date: 05/01/19 Care time: The patient presented to the Emergency Department on the above date and was hospitalized for further evaluation of their emergent condition. - New Patient This patient is new to me today: Yes Date on this admission: 05/02/19 - Critical Care Critical Care patient: Yes Total Critical Care Time (in minutes): 45 Critical Care Statement: The care of this patient involved high complexity decision making to prevent further life threatening deterioration of the patient 's condition and/or to evaluate & treat vital organ system(s) failure or risk of failure.
[2019-05-02] MEDS ORDERED: METOPROLOL TARTRATE 5 MG/5 ML VIAL IVPUSH ONE (01:22)
[2019-05-02] MEDS ORDERED: METOPROLOL TARTRATE 5 MG/5 ML VIAL ONE (01:30)
[2019-05-02] MEDS ORDERED: DILTIAZEM INJECTION 125 MG in SODIUM CHLORIDE 100 ML IVPB SCH (01:45)
[2019-05-02] MEDS ORDERED: DIGOXIN 0.5 MG/2 ML AMPUL IVPUSH ONE (02:15)
[2019-05-02] MEDS: DIGOXIN 0.5 MG/2 ML AMPUL IVPUSH ONE ×2 (02:33→02:43)
--- NOTE | 2019-05-02 02:39 | CONSULT ---
Consultation: REQUESTING PROVIDER: CONSULT REQUEST: We have been asked to medically evaluate this patient for critical care management HISTORY OF PRESENT ILLNESS: Patient states that he is confused and does not remember why he is here. History obtained from chart review and ER staff. This is an 88 year old male with past medical history significant for Polymyalgia rheumatica, COPD, Aortic valve replacement, Afib (on Coumadin), pacemaker, HTN, and NPH. He was brought from [facility] with complaints of tachycardia, generalized weakness, palpitations, and nausea, with decreased PO intake over the past several days. Patients states that he felt weak during his PT session earlier today. Of note, he was at [facility] on Monday and was sent to [facility]. ER staff spoke with physician at [place], who stated that the patient was on bystolic, which was held at the end of the hospitalization. Of note, patient states that he fell down anywhere between 3 days to 3 months ago and fractured several ribs, but is not currently in pain. REVIEW OF SYSTEMS: Comprehensive ROS is negative, patient states he feels "strong like a stallion". CONSTITUTIONAL: Absent: fever, chills, diaphoresis, generalized weakness, malaise, loss of appetite, weight change HEENT: Absent: rhinorrhea, nasal congestion, throat pain, throat swelling, difficulty swallowing, mouth swelling, ear pain, eye pain, visual changes CARDIOVASCULAR: Absent: chest pain, syncope, palpitations, irregular heart rate, lightheadedness , peripheral edema RESPIRATORY: Absent: cough, shortness of breath, dyspnea with exertion, orthopnea, wheezing, stridor, hemoptysis GASTROINTESTINAL: Absent: abdominal pain, abdominal distension, nausea, vomiting, diarrhea, constipation, melena, hematochezia GENITOURINARY: Absent: dysuria, frequency, urgency, hesitancy, hematuria, flank pain, genital pain MUSCULOSKELETAL: Absent: myalgia, arthralgia, joint swelling, back pain, neck pain SKIN: Absent: rash, itching, pallor HEMATOLOGIC/IMMUNOLOGIC: Absent: easy bleeding, easy bruising, lymphadenopathy, frequent infections ENDOCRINE: Absent: unexplained weight gain, unexplained weight loss, heat intolerance, cold intolerance NEUROLOGIC: Absent: headache, focal weakness or paresthesias, dizziness, unsteady gait, seizure, mental status changes, bladder or bowel incontinence PSYCHIATRIC: Absent: anxiety, depression, suicidal or homicidal ideation, hallucinations. PHYSICAL EXAMINATION Vital Signs - 24 hr 05/01/19 05/01/19 05/01/19 21:10 21:51 21:52 Temperature 98.4 F Pulse Rate 50 L Pulse Rate [ 148 H Apical] Respiratory 16 20 Rate Blood Pressure 83/58 L 94/48 L Blood Pressure 94/48 L [Left Arm] O2 Sat by Pulse 97 96 Oximetry (%) 05/01/19 05/02/19 22:19 01:38 Temperature Pulse Rate Pulse Rate [ 119 H Apical] Respiratory 18 Rate Blood Pressure 95/56 L 77/59 L Blood Pressure 95/56 L [Left Arm] O2 Sat by Pulse 95 Oximetry (%) GENERAL: AOx2 to self and time, coherent and cooperative EYES: KELLEY, EOMI EARS, NOSE, THROAT: Dry mucus membranes LUNGS: Clear B/L, no wheezes, and no crackles. No accessory muscle use. HEART: RRR, normal S1 and S2 without murmur, rub or gallop. ABDOMEN: Soft, nontender, not distended, normoactive bowel sounds, no guarding, no rebound, no masses. No hepatomegaly or splenomegaly. LOWER EXTREMITIES: 2+ pulses, warm, well-perfused. No calf tenderness. No peripheral edema. NEUROLOGICAL: Motor 5/5, sensations intact B/L PSYCHIATRIC: Cooperative. Good eye contact. Appropriate mood and affect. SKIN: Dry Laboratory Results - last 24 hr 05/01/19 05/01/19 05/01/19 21:31 21:31 21:31 WBC 8.8 RBC 3.68 L Hgb 11.0 L Hct 32.6 L MCV 88.5 MCH 29.9 MCHC 33.8 RDW 16.6 H Plt Count 450 H D MPV 7.7 Absolute Neuts (auto) 6.5 Neutrophils % 73.7 Neutrophils % (Manual) 73.5 Band Neutrophils % 0.0 Lymphocytes % 15.2 D Lymphocytes % (Manual) 16.2 Monocytes % 10.1 D Monocytes % (Manual) 6 Eosinophils % 0.4 Eosinophils % (Manual) 0.0 Basophils % 0.6 Basophils % (Manual) 1.5 Myelocytes % (Man) 0 Promyelocytes % (Man) 0 Blast Cells % (Manual) 0 Nucleated RBC % 0 Metamyelocytes 0 PT with INR INR PTT (Actin FS) Sodium 134 L Potassium 4.0 Chloride 94 L Carbon Dioxide 29 Anion Gap 11 BUN 40.8 H Creatinine 1.8 H Est GFR (CKD-EPI)AfAm 38.64 Est GFR (CKD-EPI)NonAf 33.34 Random Glucose 97 Calcium 8.9 Magnesium 2.2 Total Bilirubin 1.1 H AST 23 ALT 25 Alkaline Phosphatase 86 Creatine Kinase 52 Troponin I 0.16 H B-Natriuretic Peptide 2656.0 H Total Protein 7.3 Albumin 3.2 L Blood Type Antibody Screen 05/01/19 05/01/19 21:31 21:31 WBC RBC Hgb Hct MCV MCH MCHC RDW Plt Count MPV Absolute Neuts (auto) Neutrophils % Neutrophils % (Manual) Band Neutrophils % Lymphocytes % Lymphocytes % (Manual) Monocytes % Monocytes % (Manual) Eosinophils % Eosinophils % (Manual) Basophils % Basophils % (Manual) Myelocytes % (Man) Promyelocytes % (Man) Blast Cells % (Manual) Nucleated RBC % Metamyelocytes PT with INR 49.10 H INR 4.10 H* PTT (Actin FS) 49.1 H Sodium Potassium Chloride Carbon Dioxide Anion Gap BUN Creatinine Est GFR (CKD-EPI)AfAm Est GFR (CKD-EPI)NonAf Random Glucose Calcium Magnesium Total Bilirubin AST ALT Alkaline Phosphatase Creatine Kinase Troponin I B-Natriuretic Peptide Total Protein Albumin Blood Type O POSITIVE Antibody Screen Negative Active Medications Generic Name Dose Route Start Last Admin Trade Name Freq PRN Reason Stop Dose Admin Diltiazem HCl 125 mg/ Sodium 125 mls @ 5 mls/hr 05/02/19 01:45 Chloride IVPB TITR JOSELINE Protocol 5 MG/HR ASSESSMENT/PLAN: 88M with PMH of PMR, COPD, Aortic valve replacement, Afib (on Coumadin), pacemaker, HTN, and NPH. He was brought from [facility] with complaints of tachycardia, generalized weakness, palpitations, and nausea, with decreased PO intake over the past several days. Found to have Afib with RVR, admitted to [facility]. 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 Hercules) #Respiratory - CXR: nodule and mild congestion - possibly 2/2 to afib rvr #Renal - CICI, Cr 1.8 #ID - WBC 8.8, afebrile - Urine cx ordered #FEN - N/S 2L given - Na controlled diet #Dispo - Not currently candidate for ICU admission - We will continue to follow the patient. Thank you for this consultative opportunity. ATTENDING PHYSICIAN STATEMENT I saw and evaluated the patient. I reviewed the resident's note and discussed the case with the resident. I agree with the resident's findings and plan as documented. SUBJECTIVE: OBJECTIVE: ASSESSMENT AND PLAN:
[2019-05-02 04:54] LABS: URINE APPEARANCE CLEAR; URINE BILIRUBIN NEGATIVE (NEGATIVE); URINE COLOR YELLOW; URINE GLUCOSE (UA) NEGATIVE (NEGATIVE); URINE KETONE NEGATIVE (NEGATIVE); URINE LEUK ESTERASE NEGATIVE (NEGATIVE); URINE NITRITE NEGATIVE (NEGATIVE); URINE PROTEIN NEGATIVE (NEGATIVE); URINE UROBILINOGEN 0.2 mg/dL (0.2-1.0)
[2019-05-02 06:40] LABS: BASO % 0.7 % (0-2.0); EOS % 1.5 % (0-4.5); HEMATOCRIT 28.6 % (35.4-49); HEMOGLOBIN 9.4 GM/dL (11.7-16.9); LYMPH % 21.3 % (8-40); MCH 29.3 pg (25.7-33.7); MCHC 33.1 g/dl (32.0-35.9); MEAN CELL VOLUME 88.5 fl (80-96); MEAN PLT VOLUME 7.2 fl (7.5-11.1); MONO % 10.7 % (3.8-10.2); NEUT % 65.8 % (42.8-82.8); PLATELET COUNT 361 K/MM3 (134-434); RBC 3.23 M/mm3 (4.00-5.60); RDW 16.4 % (11.9-15.9)
[2019-05-02 06:46] LABS: PROTHROMBIN TIME (PATIENT) 54.3 SEC (9.7-13.0)
[2019-05-02 07:31] LABS: BLOOD UREA NITROGEN 37.9 mg/dL (7-18); CALCIUM 8.1 mg/dL (8.5-10.1); CREATININE 1.4 mg/dL (0.55-1.3); MAGNESIUM 1.9 mg/dL (1.8-2.4); PHOSPHOROUS 4.4 mg/dL (2.5-4.9); POTASSIUM 3.6 mmol/L (3.5-5.1)
[2019-05-02 07:52] LABS: INR 4.53 (0.83-1.09)
--- NOTE | 2019-05-02 11:41 | CON.CARD ---
Cardiology Consult (text) - Consultation Consultation Note: cc: afib with rvr pt poor historian hpi: 88 m hx pad (bl le dz), htn, hld, copd/ild, as s/p tavr 2016, cad s/p pci (2017 sophia mlad), ppm ([place]), afib/aflutter here with rvr. Recent admit at OSH, pt unclear why, was sent to [facility] few days ago. At [facility] was doing PT and had rvr so sent to ER. Pt does not recall events, says he feels fine. No cp sob palps dizzy loc pnd orthopnea le edema. In ER afib with rvr, improved now after iv dilt pmh: per hpi psh: tavr social: no tob fam: no premature cad ros: per hpi; all others nl meds: Ambulatory Orders predniSONE [Deltasone -] 15 mg PO AM 10/01/14 Atorvastatin Ca [Lipitor] 20 mg PO HS 03/25/16 Cholecalciferol (Vitamin D3) [Vitamin D3 -] 1,000 unit PO DAILY 03/25/16 Acetaminophen [Tylenol .Regular Strength -] 650 mg PO Q6H PRN tablet 02/05/19 Aspirin [Aspirin EC] 81 mg PO DAILY 05/01/19 Benzocaine/Menthol [Cepacol Sore Throat Lozenge] 1 each MM QID 05/01/19 Benzonatate 300 mg PO TID 05/01/19 Donepezil HCl [Aricept -] 5 mg PO DAILY 05/01/19 Furosemide [Lasix] 40 mg PO BID 05/01/19 Memantine HCl [Namenda -] 5 mg PO DAILY 05/01/19 Warfarin Na [Coumadin -] 5 mg PO ASDIR 05/01/19 clonazePAM [Klonopin -] 0.5 mg PO BID 05/01/19 pe: Vital Signs Period Temp Pulse Resp BP Sys/Scott Pulse Ox Last 24 Hr 98.0 F-98.4 F 50-148 16-22 77-112/45-63 95-99 nad no jvd irreg s1s2 no mrg cta bl nl eff awake, confused abd nt nd pos bs no jaundice diaphoresis pos dp pt no carotid bruits no le e/c/c Laboratory Last Values WBC 6.0 K/mm3 (4.0-10.0) 05/02/19 05:43 RBC 3.23 M/mm3 (4.00-5.60) L 05/02/19 05:43 Hgb 9.4 GM/dL (11.7-16.9) L 05/02/19 05:43 Hct 28.6 % (35.4-49) L 05/02/19 05:43 MCV 88.5 fl (80-96) 05/02/19 05:43 MCH 29.3 pg (25.7-33.7) 05/02/19 05:43 MCHC 33.1 g/dl (32.0-35.9) 05/02/19 05:43 RDW 16.4 % (11.9-15.9) H 05/02/19 05:43 Plt Count 361 K/MM3 (134-434) 05/02/19 05:43 MPV 7.2 fl (7.5-11.1) L 05/02/19 05:43 Absolute Neuts (auto) 3.9 K/mm3 (1.5-8.0) 05/02/19 05:43 Neutrophils % 65.8 % (42.8-82.8) 05/02/19 05:43 Neutrophils % (Manual) 73.5 % (42.8-82.8) 05/01/19 21:31 Band Neutrophils % 0.0 % 05/01/19 21:31 Lymphocytes % 21.3 % (8-40) D 05/02/19 05:43 Lymphocytes % (Manual) 16.2 % (8-40) 05/01/19 21:31 Monocytes % 10.7 % (3.8-10.2) H 05/02/19 05:43 Monocytes % (Manual) 6 % (3.8-10.2) 05/01/19 21:31 Eosinophils % 1.5 % (0-4.5) D 05/02/19 05:43 Eosinophils % (Manual) 0.0 % (0-4.5) 05/01/19 21:31 Basophils % 0.7 % (0-2.0) 05/02/19 05:43 Basophils % (Manual) 1.5 % (0-2.0) 05/01/19 21:31 Myelocytes % (Man) 0 % (0-2) 05/01/19 21:31 Promyelocytes % (Man) 0 % (0-2) 05/01/19 21:31 Blast Cells % (Manual) 0 % (0-0) 05/01/19 21:31 Nucleated RBC % 0 % (0-0) 05/02/19 05:43 Metamyelocytes 0 % (0-2) 05/01/19 21:31 PT with INR 54.30 SEC (9.7-13.0) H 05/02/19 05:43 INR 4.53 (0.83-1.09) H* 05/02/19 05:43 PTT (Actin FS) 49.1 SECONDS (25.2-36.5) H 05/01/19 21:31 Sodium 137 mmol/L (136-145) 05/02/19 05:43 Potassium 3.6 mmol/L (3.5-5.1) 05/02/19 05:43 Chloride 99 mmol/L (98-107) 05/02/19 05:43 Carbon Dioxide 30 mmol/L (21-32) 05/02/19 05:43 Anion Gap 8 MMOL/L (8-16) 05/02/19 05:43 BUN 37.9 mg/dL (7-18) H 05/02/19 05:43 Creatinine 1.4 mg/dL (0.55-1.3) H 05/02/19 05:43 Est GFR (CKD-EPI)AfAm 52.35 05/02/19 05:43 Est GFR (CKD-EPI)NonAf 45.17 05/02/19 05:43 Random Glucose 112 mg/dL (74-106) H 05/02/19 05:43 Lactic Acid 1.5 mmol/L (0.4-2.0) 05/02/19 04:01 Calcium 8.1 mg/dL (8.5-10.1) L 05/02/19 05:43 Phosphorus 4.4 mg/dL (2.5-4.9) 05/02/19 05:43 Magnesium 1.9 mg/dL (1.8-2.4) 05/02/19 05:43 Total Bilirubin 1.1 mg/dL (0.2-1) H 05/01/19 21:31 AST 23 U/L (15-37) 05/01/19 21:31 ALT 25 U/L (13-61) 05/01/19 21:31 Alkaline Phosphatase 86 U/L (45-117) 05/01/19 21:31 Creatine Kinase 52 U/L (26-308) 05/01/19 21:31 Troponin I 1.14 ng/ml (0.00-0.05) H* 05/02/19 05:43 B-Natriuretic Peptide 2656.0 pg/ml (5-450) H 05/01/19 21:31 Total Protein 7.3 g/dl (6.4-8.2) 05/01/19 21:31 Albumin 3.2 g/dl (3.4-5.0) L 05/01/19 21:31 Triglycerides 87 mg/dL (0-150) 05/02/19 05:43 Cholesterol 124 mg/dL (50-200) 05/02/19 05:43 Total LDL Cholesterol 76 mg/dL (5-100) 05/02/19 05:43 HDL Cholesterol 36 mg/dL (40-60) L 05/02/19 05:43 TSH 0.90 uIU/ml (0.358-3.74) D 05/02/19 05:43 Urine Color Yellow 05/02/19 04:31 Urine Appearance Clear 05/02/19 04:31 Urine pH 5.0 (5.0-8.0) 05/02/19 04:31 Ur Specific [place] 1.014 (1.010-1.035) 05/02/19 04:31 Urine Protein Negative (NEGATIVE) 05/02/19 04:31 Urine Glucose (UA) Negative (NEGATIVE) 05/02/19 04:31 Urine Ketones Negative (NEGATIVE) 05/02/19 04:31 Urine Blood Negative (NEGATIVE) 05/02/19 04:31 Urine Nitrite Negative (NEGATIVE) 05/02/19 04:31 Urine Bilirubin Negative (NEGATIVE) 05/02/19 04:31 Urine Urobilinogen 0.2 mg/dL (0.2-1.0) 05/02/19 04:31 Ur Leukocyte Esterase Negative (NEGATIVE) 05/02/19 04:31 Digoxin 0.92 ng/ml (0.8-2.0) 05/02/19 05:43 Blood Type O POSITIVE 05/01/19 21:31 Antibody Screen Negative 05/01/19 21:31 echo 10/2017: nl lv/rv, nl bio avr, mild mr/tr/pr, mod phtn cxr: no chf, +ILD, +?pna ecg: afib with rvr, old lbbb a/p: 88 m hx pad (bl le dz), htn, hld, copd/ild, as s/p tavr 2016, cad s/p pci (2017 sophia mlad), ppm ([place]), afib/aflutter here with rvr. afib with rvr: -rate improved after dilt IV -will start po dilt for rate control, monitor tele -cont coumadin per INR htn: -cont dilt as above, hold home bystolic for now hld: -cont home statin tavr: -check updated echo, no signs chf here +trops, cad, hx pci: -trop mildly elevated here, possibly from demand ischemia from rvr/low bp. Trend for now. Cont tele. Check echo. -cont ac, asa, statin ppm: -routine outpt checks
[2019-05-02] MEDS ORDERED: dilTIAZem HCL 30 MG TABLET (FP) ONE (12:20)
[2019-05-02] MEDS: dilTIAZem HCL 30 MG TABLET (FP) PO SCH ×2 (12:24→18:41)
--- NOTE | 2019-05-02 12:58 | PN ---
Teaching Attending Note Name of Resident: Irving Soler ATTENDING PHYSICIAN STATEMENT I saw and evaluated the patient. I reviewed the resident's note and discussed the case with the resident. I agree with the resident's findings and plan as documented. SUBJECTIVE: Feeling better, does not know why he is at the hospital. Denies lightheadedness/CP/palpitations/SOB. Nausea resolved, no vomiting. No fever/ chills. OBJECTIVE: Afebrile, Hemodynamically Stable. AAO x 2-3 Last Vital Signs Temp Pulse Resp BP Pulse Ox 98.0 F 84 18 112/56 L 99 05/02/19 07:05 05/02/19 07:05 05/02/19 07:05 05/02/19 07:05 05/02/19 07:15 HEENT - Atraumatic, Normocephalic. Heart - S1, S2, SM Lungs - clear to auscultation. Abdomen - Soft, non-tender. Bowel Sounds normal. Extremities - No edema, no calf tenderness, some abrasions. Neuro - AAO x 2-3. Tone/Power normal all extremities. Laboratory Results - last 24 hr 05/01/19 05/01/19 05/01/19 21:31 21:31 21:31 WBC 8.8 RBC 3.68 L Hgb 11.0 L Hct 32.6 L MCV 88.5 MCH 29.9 MCHC 33.8 RDW 16.6 H Plt Count 450 H D MPV 7.7 Absolute Neuts (auto) 6.5 Neutrophils % 73.7 Neutrophils % (Manual) 73.5 Band Neutrophils % 0.0 Lymphocytes % 15.2 D Lymphocytes % (Manual) 16.2 Monocytes % 10.1 D Monocytes % (Manual) 6 Eosinophils % 0.4 Eosinophils % (Manual) 0.0 Basophils % 0.6 Basophils % (Manual) 1.5 Myelocytes % (Man) 0 Promyelocytes % (Man) 0 Blast Cells % (Manual) 0 Nucleated RBC % 0 Metamyelocytes 0 PT with INR INR PTT (Actin FS) Sodium 134 L Potassium 4.0 Chloride 94 L Carbon Dioxide 29 Anion Gap 11 BUN 40.8 H Creatinine 1.8 H Est GFR (CKD-EPI)AfAm 38.64 Est GFR (CKD-EPI)NonAf 33.34 Random Glucose 97 Lactic Acid Calcium 8.9 Phosphorus Magnesium 2.2 Total Bilirubin 1.1 H AST 23 ALT 25 Alkaline Phosphatase 86 Creatine Kinase 52 Troponin I 0.16 H B-Natriuretic Peptide 2656.0 H Total Protein 7.3 Albumin 3.2 L Triglycerides Cholesterol Total LDL Cholesterol HDL Cholesterol TSH Urine Color Urine Appearance Urine pH Ur Specific [place] Urine Protein Urine Glucose (UA) Urine Ketones Urine Blood Urine Nitrite Urine Bilirubin Urine Urobilinogen Ur Leukocyte Esterase Digoxin Blood Type Antibody Screen 05/01/19 05/01/19 05/02/19 21:31 21:31 04:01 WBC RBC Hgb Hct MCV MCH MCHC RDW Plt Count MPV Absolute Neuts (auto) Neutrophils % Neutrophils % (Manual) Band Neutrophils % Lymphocytes % Lymphocytes % (Manual) Monocytes % Monocytes % (Manual) Eosinophils % Eosinophils % (Manual) Basophils % Basophils % (Manual) Myelocytes % (Man) Promyelocytes % (Man) Blast Cells % (Manual) Nucleated RBC % Metamyelocytes PT with INR 49.10 H INR 4.10 H* PTT (Actin FS) 49.1 H Sodium Potassium Chloride Carbon Dioxide Anion Gap BUN Creatinine Est GFR (CKD-EPI)AfAm Est GFR (CKD-EPI)NonAf Random Glucose Lactic Acid 1.5 Calcium Phosphorus Magnesium Total Bilirubin AST ALT Alkaline Phosphatase Creatine Kinase Troponin I B-Natriuretic Peptide Total Protein Albumin Triglycerides Cholesterol Total LDL Cholesterol HDL Cholesterol TSH Urine Color Urine Appearance Urine pH Ur Specific [place] Urine Protein Urine Glucose (UA) Urine Ketones Urine Blood Urine Nitrite Urine Bilirubin Urine Urobilinogen Ur Leukocyte Esterase Digoxin Blood Type O POSITIVE Antibody Screen Negative 05/02/19 05/02/19 05/02/19 04:31 05:43 05:43 WBC 6.0 RBC 3.23 L Hgb 9.4 L Hct 28.6 L MCV 88.5 MCH 29.3 MCHC 33.1 RDW 16.4 H Plt Count 361 MPV 7.2 L Absolute Neuts (auto) 3.9 Neutrophils % 65.8 Neutrophils % (Manual) Band Neutrophils % Lymphocytes % 21.3 D Lymphocytes % (Manual) Monocytes % 10.7 H Monocytes % (Manual) Eosinophils % 1.5 D Eosinophils % (Manual) Basophils % 0.7 Basophils % (Manual) Myelocytes % (Man) Promyelocytes % (Man) Blast Cells % (Manual) Nucleated RBC % 0 Metamyelocytes PT with INR 54.30 H INR 4.53 H* PTT (Actin FS) Sodium Potassium Chloride Carbon Dioxide Anion Gap BUN Creatinine Est GFR (CKD-EPI)AfAm Est GFR (CKD-EPI)NonAf Random Glucose Lactic Acid Calcium Phosphorus Magnesium Total Bilirubin AST ALT Alkaline Phosphatase Creatine Kinase Troponin I B-Natriuretic Peptide Total Protein Albumin Triglycerides Cholesterol Total LDL Cholesterol HDL Cholesterol TSH Urine Color Yellow Urine Appearance Clear Urine pH 5.0 Ur Specific [place] 1.014 Urine Protein Negative Urine Glucose (UA) Negative Urine Ketones Negative Urine Blood Negative Urine Nitrite Negative Urine Bilirubin Negative Urine Urobilinogen 0.2 Ur Leukocyte Esterase Negative Digoxin Blood Type Antibody Screen 05/02/19 05/02/19 05:43 05:43 WBC RBC Hgb Hct MCV MCH MCHC RDW Plt Count MPV Absolute Neuts (auto) Neutrophils % Neutrophils % (Manual) Band Neutrophils % Lymphocytes % Lymphocytes % (Manual) Monocytes % Monocytes % (Manual) Eosinophils % Eosinophils % (Manual) Basophils % Basophils % (Manual) Myelocytes % (Man) Promyelocytes % (Man) Blast Cells % (Manual) Nucleated RBC % Metamyelocytes PT with INR INR PTT (Actin FS) Sodium 137 Potassium 3.6 Chloride 99 Carbon Dioxide 30 Anion Gap 8 BUN 37.9 H Creatinine 1.4 H Est GFR (CKD-EPI)AfAm 52.35 Est GFR (CKD-EPI)NonAf 45.17 Random Glucose 112 H Lactic Acid Calcium 8.1 L Phosphorus 4.4 Magnesium 1.9 Total Bilirubin AST ALT Alkaline Phosphatase Creatine Kinase Troponin I 1.14 H* B-Natriuretic Peptide Total Protein Albumin Triglycerides 87 Cholesterol 124 Total LDL Cholesterol 76 HDL Cholesterol 36 L TSH 0.90 D Urine Color Urine Appearance Urine pH Ur Specific [place] Urine Protein Urine Glucose (UA) Urine Ketones Urine Blood Urine Nitrite Urine Bilirubin Urine Urobilinogen Ur Leukocyte Esterase Digoxin 0.92 Blood Type Antibody Screen Current Medications Generic Name Dose Route Start Last Admin Trade Name Freq PRN Reason Stop Dose Admin Aspirin 81 mg 05/03/19 10:00 Ecotrin - PO DAILY [facility] Atorvastatin Calcium 20 mg 05/02/19 22:00 Lipitor - PO HS [facility] Benzocaine/Menthol 1 each 05/02/19 14:00 Cepacol Lozenge - MM QID [facility] Cholecalciferol 1,000 unit 05/03/19 10:00 Vitamin D3 - PO DAILY JOSELINE Clonazepam 0.5 mg 05/02/19 22:00 Klonopin - PO BID JOSELINE Diltiazem HCl 30 mg 05/02/19 12:00 05/02/19 12:24 Cardizem - PO 30 mg Q6HPO JOSELINE Administration Docusate Sodium 100 mg 05/02/19 22:00 Colace - PO BID JOSELINE Donepezil HCl 5 mg 05/03/19 10:00 Aricept - PO DAILY [facility] Ferrous Sulfate 325 mg 05/02/19 17:30 Feosol - PO BIDWM [facility] Diltiazem HCl 125 mg/ Sodium 125 mls @ 5 mls/hr 05/02/19 01:45 05/02/19 02:34 Chloride IVPB Not Given TITR [facility] Protocol 5 MG/HR Memantine 5 mg 05/03/19 10:00 Namenda - PO DAILY [facility] Prednisone 15 mg 05/03/19 07:00 Deltasone - PO AM [facility] Home Medications Medication Instructions Recorded predniSONE [Deltasone -] 15 mg PO AM 10/01/14 Atorvastatin Ca [Lipitor] 20 mg PO HS 03/25/16 Cholecalciferol (Vitamin D3) 1,000 unit PO DAILY 03/25/16 [Vitamin D3 -] Acetaminophen [Tylenol .Regular 650 mg PO Q6H PRN tablet 02/05/19 Strength -] Aspirin [Aspirin EC] 81 mg PO DAILY 05/01/19 Benzocaine/Menthol [Cepacol Sore 1 each MM QID 05/01/19 Throat Lozenge] Benzonatate 300 mg PO TID 05/01/19 Donepezil HCl [Aricept -] 5 mg PO DAILY 05/01/19 Memantine HCl [Namenda -] 5 mg PO DAILY 05/01/19 Warfarin Na [Coumadin -] 5 mg PO ASDIR 05/01/19 clonazePAM [Klonopin -] 0.5 mg PO BID 05/01/19 Docusate Sodium [Colace] 100 mg PO BID 05/02/19 Ferrous Sulfate 325 mg PO BID 05/02/19 ASSESSMENT AND PLAN: 88 year old male with history of PMR (on Prednisone), AV stenosis s/p TAVR, s/p AVR, Atrial fibrillation (on coumadin), LBBB, s/p PPM, HTN, HLD, PAD, Squamous Cell Ca s/p MOHS, Prostate Ca, sent to ED from [facility] with generalized weakkness and RVR. Patient reports nausea, now resolved. Denies CP/palpitations/ lightheadedness. 1. Atrial fibrillation with RVR Resolved with Cardizem IV ECG - Atrial fibrillation with RVR Evaluated by Cardiology - recommend oral Diltiazem Normally n Coumadin, now held due to supratherapeutic INR. Echo requested. 2. Troponin Egression secondary to demand ischemia due to RVR Telemonitoring Serial Cardiac enzymes No evidence of ACS as per Cardiology. Continue ASA, Statin. 3. Spratherapeutic INR, 4.53 Coumadin held. 4. HLD - normally on Lipitor. 5. Dementia with emotional lability - continue Namenda, Donepezil, Clonazepam. previously on Zyprexa recommended by Psychiatry on last admission. 6. HTN - Previously on Bystolic, stopped on recent admission to [facility] for unclear reasons. 7. PMR - continue Prednisone. 8. Normocytic Anemia sec to chronic disease, Iron Sat 17% (borderline), B12 level 681, Folate 9. No evidence of active GI blood loss. Iron supplementation ongoing. Had prior Colonoscopy showing multiple polyps. For discussion of further Ix as out-patient. 9. AV Stenosis s/p TAVR - previously on BB, now stopped.Repeat Echo today. 10. 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 No evidence of acute exacerbation. CXR - questionable infiltrate L base. No clear signs of infection - no cough/sputum/ fevers/leukocytosis. Pulm eval requested. Abx held for now. 11. CICI - resolving. DVT Px - on Coumadin, supratherapeutic INR.
[2019-05-02] MEDS: BENZOCAINE/MENTH/CETYLPYRD CL 1 EACH LOZENGE MM SCH ×3 (14:09→22:41)
--- NOTE | 2019-05-02 14:37 | EKG ---
Test Reason : Blood Pressure : / mmHG Vent. Rate : 079 BPM Atrial Rate : 079 BPM P-R Int : 146 ms QRS Dur : 160 ms QT Int : 446 ms P-R-T Axes : 034 -40 134 degrees QTc Int : 511 ms POOR DATA QUALITY, INTERPRETATION MAY BE ADVERSELY AFFECTED SINUS RHYTHM WITH PREMATURE SUPRAVENTRICULAR COMPLEXES POSSIBLE LEFT ATRIAL ENLARGEMENT LEFT AXIS DEVIATION LEFT BUNDLE BRANCH BLOCK ABNORMAL ECG WHEN COMPARED WITH ECG OF 01-MAY-2019 21:09, SINUS RHYTHM HAS REPLACED ATRIAL FIBRILLATION VENT. RATE HAS DECREASED BY 86 BPM QRS DURATION HAS INCREASED Confirmed by ISA ALFARO MD ([id number]) on 05/02/2019 2:36:50 PM Referred By: Confirmed By:ISA ALFARO MD
--- NOTE | 2019-05-02 14:42 | EKG ---
Test Reason : Blood Pressure : / mmHG Vent. Rate : 165 BPM Atrial Rate : 159 BPM P-R Int : 000 ms QRS Dur : 138 ms QT Int : 300 ms P-R-T Axes : 000 -45 147 degrees QTc Int : 497 ms ATRIAL FIBRILLATION WITH RAPID VENTRICULAR RESPONSE WITH PREMATURE VENTRICULAR OR ABERRANTLY CONDUCTED COMPLEXES LEFT AXIS DEVIATION LEFT BUNDLE BRANCH BLOCK ABNORMAL ECG WHEN COMPARED WITH ECG OF 14-MAR-2019 16:32, ATRIAL FIBRILLATION HAS REPLACED SINUS RHYTHM VENT. RATE HAS INCREASED BY 98 BPM Confirmed by ISA ALFARO MD ([id number]) on 05/02/2019 2:42:08 PM Referred By: Confirmed By:ISA ALFARO MD
--- NOTE | 2019-05-02 15:00 | PN ---
Physical Exam: SUBJECTIVE: Patient seen and examined at the bedside. Patient stated that he was upset that he was in the hospital again. He noted that he had a cough that was not productive of sputum and had mild shortness of breath that he noted was at his baseline. Denied chest pain, abd pain, n/v/c/d, fever, chills, palpitations, dizziness, lightheadedness, headaches, diaphoresis. OBJECTIVE: Vital Signs Period Temp Pulse Resp BP Sys/Scott Pulse Ox Last 24 Hr 98.0 F-98.4 F 50-148 16-22 77-112/45-63 95-99 GENERAL: The patient is awake, alert, and oriented to self, location, year and month, in mild acute distress. HEAD: Normal with no signs of trauma. EYES: PERRL, extraocular movements intact, sclera anicteric, conjunctiva clear. ENT: Oropharynx clear without exudates, moist mucous membranes. NECK: Trachea midline, full range of motion, supple. LUNGS: Crackles noted in bilateral bases L>R, no wheezes, no accessory muscle use. HEART: Regular rate and rhythm, S1, S2 with systolic ejection murmur. ABDOMEN: Soft, nontender, nondistended, normoactive bowel sounds, no guarding, no rebound, no masses. EXTREMITIES: 1+ pulses, warm, well-perfused, no edema. NEUROLOGICAL: Cranial nerves II through XII grossly intact. 5/5 muscle strength upper and lower extremities, bilaterally. PSYCH: Normal mood, normal affect. SKIN: Warm, dry, normal turgor, scattered excoriations noted on bilateral lower legs. Laboratory Results - last 24 hr 05/01/19 05/01/19 05/01/19 21:31 21:31 21:31 WBC 8.8 RBC 3.68 L Hgb 11.0 L Hct 32.6 L MCV 88.5 MCH 29.9 MCHC 33.8 RDW 16.6 H Plt Count 450 H D MPV 7.7 Absolute Neuts (auto) 6.5 Neutrophils % 73.7 Neutrophils % (Manual) 73.5 Band Neutrophils % 0.0 Lymphocytes % 15.2 D Lymphocytes % (Manual) 16.2 Monocytes % 10.1 D Monocytes % (Manual) 6 Eosinophils % 0.4 Eosinophils % (Manual) 0.0 Basophils % 0.6 Basophils % (Manual) 1.5 Myelocytes % (Man) 0 Promyelocytes % (Man) 0 Blast Cells % (Manual) 0 Nucleated RBC % 0 Metamyelocytes 0 PT with INR INR PTT (Actin FS) Sodium 134 L Potassium 4.0 Chloride 94 L Carbon Dioxide 29 Anion Gap 11 BUN 40.8 H Creatinine 1.8 H Est GFR (CKD-EPI)AfAm 38.64 Est GFR (CKD-EPI)NonAf 33.34 Random Glucose 97 Lactic Acid Calcium 8.9 Phosphorus Magnesium 2.2 Total Bilirubin 1.1 H AST 23 ALT 25 Alkaline Phosphatase 86 Creatine Kinase 52 Troponin I 0.16 H B-Natriuretic Peptide 2656.0 H Total Protein 7.3 Albumin 3.2 L Triglycerides Cholesterol Total LDL Cholesterol HDL Cholesterol TSH Urine Color Urine Appearance Urine pH Ur Specific [place] Urine Protein Urine Glucose (UA) Urine Ketones Urine Blood Urine Nitrite Urine Bilirubin Urine Urobilinogen Ur Leukocyte Esterase Digoxin Blood Type Antibody Screen 05/01/19 05/01/19 05/02/19 21:31 21:31 04:01 WBC RBC Hgb Hct MCV MCH MCHC RDW Plt Count MPV Absolute Neuts (auto) Neutrophils % Neutrophils % (Manual) Band Neutrophils % Lymphocytes % Lymphocytes % (Manual) Monocytes % Monocytes % (Manual) Eosinophils % Eosinophils % (Manual) Basophils % Basophils % (Manual) Myelocytes % (Man) Promyelocytes % (Man) Blast Cells % (Manual) Nucleated RBC % Metamyelocytes PT with INR 49.10 H INR 4.10 H* PTT (Actin FS) 49.1 H Sodium Potassium Chloride Carbon Dioxide Anion Gap BUN Creatinine Est GFR (CKD-EPI)AfAm Est GFR (CKD-EPI)NonAf Random Glucose Lactic Acid 1.5 Calcium Phosphorus Magnesium Total Bilirubin AST ALT Alkaline Phosphatase Creatine Kinase Troponin I B-Natriuretic Peptide Total Protein Albumin Triglycerides Cholesterol Total LDL Cholesterol HDL Cholesterol TSH Urine Color Urine Appearance Urine pH Ur Specific [place] Urine Protein Urine Glucose (UA) Urine Ketones Urine Blood Urine Nitrite Urine Bilirubin Urine Urobilinogen Ur Leukocyte Esterase Digoxin Blood Type O POSITIVE Antibody Screen Negative 05/02/19 05/02/19 05/02/19 04:31 05:43 05:43 WBC 6.0 RBC 3.23 L Hgb 9.4 L Hct 28.6 L MCV 88.5 MCH 29.3 MCHC 33.1 RDW 16.4 H Plt Count 361 MPV 7.2 L Absolute Neuts (auto) 3.9 Neutrophils % 65.8 Neutrophils % (Manual) Band Neutrophils % Lymphocytes % 21.3 D Lymphocytes % (Manual) Monocytes % 10.7 H Monocytes % (Manual) Eosinophils % 1.5 D Eosinophils % (Manual) Basophils % 0.7 Basophils % (Manual) Myelocytes % (Man) Promyelocytes % (Man) Blast Cells % (Manual) Nucleated RBC % 0 Metamyelocytes PT with INR 54.30 H INR 4.53 H* PTT (Actin FS) Sodium Potassium Chloride Carbon Dioxide Anion Gap BUN Creatinine Est GFR (CKD-EPI)AfAm Est GFR (CKD-EPI)NonAf Random Glucose Lactic Acid Calcium Phosphorus Magnesium Total Bilirubin AST ALT Alkaline Phosphatase Creatine Kinase Troponin I B-Natriuretic Peptide Total Protein Albumin Triglycerides Cholesterol Total LDL Cholesterol HDL Cholesterol TSH Urine Color Yellow Urine Appearance Clear Urine pH 5.0 Ur Specific [place] 1.014 Urine Protein Negative Urine Glucose (UA) Negative Urine Ketones Negative Urine Blood Negative Urine Nitrite Negative Urine Bilirubin Negative Urine Urobilinogen 0.2 Ur Leukocyte Esterase Negative Digoxin Blood Type Antibody Screen 05/02/19 05/02/19 05/02/19 05:43 05:43 13:38 WBC RBC Hgb Hct MCV MCH MCHC RDW Plt Count MPV Absolute Neuts (auto) Neutrophils % Neutrophils % (Manual) Band Neutrophils % Lymphocytes % Lymphocytes % (Manual) Monocytes % Monocytes % (Manual) Eosinophils % Eosinophils % (Manual) Basophils % Basophils % (Manual) Myelocytes % (Man) Promyelocytes % (Man) Blast Cells % (Manual) Nucleated RBC % Metamyelocytes PT with INR INR PTT (Actin FS) Sodium 137 Potassium 3.6 Chloride 99 Carbon Dioxide 30 Anion Gap 8 BUN 37.9 H Creatinine 1.4 H Est GFR (CKD-EPI)AfAm 52.35 Est GFR (CKD-EPI)NonAf 45.17 Random Glucose 112 H Lactic Acid Calcium 8.1 L Phosphorus 4.4 Magnesium 1.9 Total Bilirubin AST ALT Alkaline Phosphatase Creatine Kinase Troponin I 1.14 H* 1.37 H* B-Natriuretic Peptide Total Protein Albumin Triglycerides 87 Cholesterol 124 Total LDL Cholesterol 76 HDL Cholesterol 36 L TSH 0.90 D Urine Color Urine Appearance Urine pH Ur Specific [place] Urine Protein Urine Glucose (UA) Urine Ketones Urine Blood Urine Nitrite Urine Bilirubin Urine Urobilinogen Ur Leukocyte Esterase Digoxin 0.92 Blood Type Antibody Screen Active Medications Generic Name Dose Route Start Last Admin Trade Name Freq PRN Reason Stop Dose Admin Aspirin 81 mg 05/03/19 10:00 Ecotrin - PO DAILY [facility] Atorvastatin Calcium 20 mg 05/02/19 22:00 Lipitor - PO HS [facility] Benzocaine/Menthol 1 each 05/02/19 14:00 05/02/19 14:09 Cepacol Lozenge - MM Not Given QID [facility] Cholecalciferol 1,000 unit 05/03/19 10:00 Vitamin D3 - PO DAILY [facility] Clonazepam 0.5 mg 05/02/19 22:00 Klonopin - PO BID JOSELINE Diltiazem HCl 30 mg 05/02/19 12:00 05/02/19 12:24 Cardizem - PO 30 mg Q6HPO [facility] Administration Docusate Sodium 100 mg 05/02/19 22:00 Colace - PO BID JOSELINE Donepezil HCl 5 mg 05/03/19 10:00 Aricept - PO DAILY [facility] Ferrous Sulfate 325 mg 05/02/19 17:30 Feosol - PO BIDWM [facility] Diltiazem HCl 125 mg/ Sodium 125 mls @ 5 mls/hr 05/02/19 01:45 05/02/19 02:34 Chloride IVPB Not Given TITR [facility] Protocol 5 MG/HR Memantine 5 mg 05/03/19 10:00 Namenda - PO DAILY [facility] Prednisone 15 mg 05/03/19 07:00 Deltasone - PO AM [facility] ASSESSMENT/PLAN: Saul Yeung is an 88 year old male with past medical history significant for Polymyalgia rheumatica, COPD, Aortic valve replacement, Afib (on Coumadin), LBBB , pacemaker, HTN, NPH, squamous cell carcinoma s/p Mohs surgery, prostate CA admitted for a fib with RVR. A fib with RVR - had Bystolic recently stopped on admission to [facility] - was given Lopressor 5mg 3x and digoxin 0.25mg and is currently rate controlled - troponemia 0.16-->1.14-->1.37, likely in setting of afib and demand ischemia, continue to trend to peak, cautious observance and repeat EKG if new symptoms appear - cardiology consulted, recs appreciated - continue diltiazem 30mg q6h - will resume coumadin as per INR, now supratherapeutic, will hold, repeat INR - continue to monitor BP, HR - BNP 2656, no evidence of heart failure - echo showing LV systolic function reducewd EF 40-45%, moderate global hypokinesis of LV, normal RV, moderate mitral and tricuspid regurg, bioprosthetic aortic valve Infiltrate in LLL in setting of chronic interstitial lung disease and COPD - afebrile, no WBC - noted superimposed LLL infiltrate on CXR - pulm consult, await recs - for now monitor off abx - continue home prednisone CICI - likely in the setting of poor oral intake and dehydration - baseline CRE 0.9-1.1 - CRE today 1.4, improved after fluids, continue to encourage PO intake Weakness - physical therapy request HTN - continue home medications - continue diltiazem HLD - continue home statin Dementia - continue home Namenda, Aricept, and clonazepam Normocytic Anemia - likely in the setting of chronic interstitial lung disease and chronic steroid use - anemia of chronic disease - continue iron supplementation FEN - no standing fluids to avoid overload - continue to monitor electrolytes and replete as necessary - sodium controlled diet Prophylaxis - on coumadin, currently held due to supratherapeutic INR Dispo - continue to monitor on telemetry Visit type - Emergency Visit Emergency Visit: Yes ED Registration Date: 05/02/19 Care time: The patient presented to the Emergency Department on the above date and was hospitalized for further evaluation of their emergent condition. - New Patient This patient is new to me today: Yes Date on this admission: 05/02/19 - Critical Care Critical Care patient: No
--- NOTE | 2019-05-02 16:06 | ECHO ---
Name: PRINCE BLANK Exam:Adult Echocardiogram Study Date: 05/02/2019 01:34 PM Age: 88 yrs Reason For Study: avr Height: 64 in Weight: 165 lb BSA: 1.8 m2 Procedure A complete two-dimensional transthoracic echocardiogram was performed (2D, M-mode, Doppler and color flow Doppler). The study was technically difficult with many images being suboptimal in quality. Left Ventricle The left ventricle is normal in size. Left ventricular systolic function is moderately reduced. Eject ion Fraction = 40-45%. There is moderate global hypokinesis of the left ventricle. Right Ventricle The right ventricle is normal in size and function. Atria Normal left and right atrial size and function. Mitral Valve There is moderate mitral regurgitation. Tricuspid Valve There is moderate tricuspid regurgitation. Right ventricular systolic pressure is elevated at 30-40mm Hg. Aortic Valve There is a bioprosthetic aortic valve. The prosthetic aortic valve is well-seated. The gradient is no rmal for this prosthetic aortic valve. No aortic regurgitation is present. Pulmonic Valve There is no pulmonic valvular regurgitation. Great Vessels The aortic root is normal size. Pericardium/Pleura There is no pericardial effusion. Interpretation Summary The study was technically difficult with many images being suboptimal in quality. Left ventricular systolic function is moderately reduced. There is moderate global hypokinesis of the left ventricle. The right ventricle is normal in size and function. There is moderate mitral regurgitation. There is moderate tricuspid regurgitation. Right ventricular systolic pressure is elevated at 30-40mmHg. There is a bioprosthetic aortic valve. MD Yosef Joseph 05/02/2019 04:06 PM
[2019-05-02 16:44] VITALS: BMI 22.1
[2019-05-02] MEDS: FERROUS SO4 325 MG TABLET (FP) PO SCH (18:40)
[2019-05-02] MEDS ORDERED: MELATONIN 5 MG TABLETS PO ONE (21:24)
[2019-05-02] MEDS: ATORVASTATIN CA 20 MG TABLET (FP) PO SCH (22:41)
[2019-05-02] MEDS: DOCUSATE SODIUM 100 MG CAPSULE (FP) PO SCH (22:41)
[2019-05-02] MEDS: clonazePAM 0.5 MG TABLET PO SCH (22:41)
[2019-05-03] MEDS: dilTIAZem HCL 30 MG TABLET (FP) PO SCH ×4 (02:13→17:02)
[2019-05-03 07:04] LABS: HEMATOCRIT 30.3 % (35.4-49); MCH 29.3 pg (25.7-33.7); MEAN CELL VOLUME 88.8 fl (80-96); MEAN PLT VOLUME 6.7 fl (7.5-11.1); PLATELET COUNT 356 K/MM3 (134-434); RBC 3.41 M/mm3 (4.00-5.60); RDW 16.2 % (11.9-15.9); WHITE BLOOD COUNT 8.3 K/mm3 (4.0-10.0)
[2019-05-03 07:32] LABS: INR 3.45 (0.83-1.09); PROTHROMBIN TIME (PATIENT) 41.2 SEC (9.7-13.0)
[2019-05-03] MEDS: predniSONE 10 MG TABLET (UD) PO SCH (07:49)
[2019-05-03 08:15] LABS: BLOOD UREA NITROGEN 25.7 mg/dL (7-18); CALCIUM 8.6 mg/dL (8.5-10.1)
--- NOTE | 2019-05-03 10:18 | PN ---
Progress Note, Physician Chief Complaint: no cp, sob TELE: NSR, some PVCs, frequent PACs - Current Medication List Current Medications: Active Medications Aspirin (Ecotrin -) 81 mg PO DAILY [facility] Atorvastatin Calcium (Lipitor -) 20 mg PO HS [facility] Last Admin: 05/02/19 22:41 Dose: 20 mg Benzocaine/Menthol (Cepacol Lozenge -) 1 each MM QID [facility] Last Admin: 05/02/19 22:41 Dose: 1 each Cholecalciferol (Vitamin D3 -) 1,000 unit PO DAILY [facility] Clonazepam (Klonopin -) 0.5 mg PO BID [facility] Last Admin: 05/02/19 22:41 Dose: 0.5 mg Diltiazem HCl (Cardizem -) 30 mg PO Q6HPO [facility] Last Admin: 05/03/19 07:49 Dose: 30 mg Docusate Sodium (Colace -) 100 mg PO BID [facility] Last Admin: 05/02/19 22:41 Dose: 100 mg Donepezil HCl (Aricept -) 5 mg PO DAILY [facility] Ferrous Sulfate (Feosol -) 325 mg PO BIDWM [facility] Last Admin: 05/02/19 18:40 Dose: 325 mg Diltiazem HCl 125 mg/ Sodium (Chloride) 125 mls @ 5 mls/hr IVPB TITR [facility]; Protocol Last Admin: 05/02/19 02:34 Dose: Not Given Memantine (Namenda -) 5 mg PO DAILY [facility] Prednisone (Deltasone -) 15 mg PO AM [facility] Last Admin: 05/03/19 07:49 Dose: 15 mg - Objective Vital Signs: Vital Signs Temperature 99.4 F 05/03/19 06:00 Pulse Rate 83 05/03/19 06:00 Respiratory Rate 18 05/03/19 06:00 Blood Pressure 162/72 05/03/19 06:00 O2 Sat by Pulse Oximetry (%) 92 L 05/02/19 21:00 Constitutional: Yes: No Distress Cardiovascular: Yes: Regular Rate and Rhythm Respiratory: Yes: CTA Bilaterally Gastrointestinal: Yes: Soft (nt) Edema: No Neurological: Yes: Alert, Oriented Labs: CBC, BMP 05/03/19 06:40 05/03/19 06:40 INR, PTT INR 3.45 (0.83-1.09) H 05/03/19 06:40 - ....Imaging EKG: Image Reviewed Assessment/Plan echo 10/2017: nl lv/rv, nl bio avr, mild mr/tr/pr, mod phtn cxr: no chf, +ILD, +?pna ecg: afib with rvr, old lbbb a/p: 88 m hx pad (bl le dz), htn, hld, copd/ild, as s/p tavr 2017, cad s/p pci (2017 sophia mlad), ppm ([place]), afib/aflutter here with rvr. afib with rvr: -rate improved after dilt IV -will start po dilt for rate control, monitor tele -cont coumadin per INR (supratherapeutic now) htn: -cont dilt as above, hold home bystolic for now hld: -cont home statin tavr: -echo w/ nl fxn prosthesis +trops, cad, hx pci: -trop mildly elevated here, possibly from demand ischemia from rvr/low bp. Trend is flat and coming down.Unlikely ACS -Echo now shows moderate LV dysx new from 2018 which may be due to AF w/ RVR -Consider pharm MPI prior to d/c (will discuss w/ PMD) -cont ac, asa, statin ppm: -routine outpt checks
[2019-05-03] MEDS: ASPIRIN COATED 81 MG TABLET.EC PO SCH (10:34)
[2019-05-03] MEDS: BENZOCAINE/MENTH/CETYLPYRD CL 1 EACH LOZENGE MM SCH ×4 (10:34→21:10)
[2019-05-03] MEDS: DOCUSATE SODIUM 100 MG CAPSULE (FP) PO SCH ×2 (10:34→21:07)
[2019-05-03] MEDS: FERROUS SO4 325 MG TABLET (FP) PO SCH ×2 (10:34→16:53)
[2019-05-03] MEDS: DONEPEZIL HCL 5 MG TABLET (FP) PO SCH (10:35)
[2019-05-03] MEDS: MEMANTINE HCL 5 MG TABLET (UD) PO SCH (10:35)
[2019-05-03] MEDS: clonazePAM 0.5 MG TABLET PO SCH ×2 (10:35→21:07)
[2019-05-03] MEDS: CHOLECALCIFEROL (VIT D3) 1,000 UNIT (25 MCG) TABLET PO SCH (10:35)
--- NOTE | 2019-05-03 11:07 | PN ---
Progress Note (short form) - Note Progress Note: PULMONARY CONSULATATION DICTATED 05/03/19 IMP ACUTE HYPOXEMIC RESPIRATORY FAILURE AFIB WITH RVR COPD/ILD S/P AVR ASHD S/P STENT S/P PPM ACUTE ON CHRONIC CHF LV SYSTOLIC DYSFUNCTION POLYMYALGIA RHEUMATICA SQUAMOUS CELL CA S/P MOHS PROCEDURE ANEMIA + TROPONIN LIKELY DEMAND ISCHEMIA PLAN O2 RATE CONTROL PER CARDIOLOGY INHALED BRONCHODILATORS NEEDED TREND TROPONINS CHEST CT MONITOR LYTES,RENAL FUNCTION DR HALL Problem List - Problems (1) Atrial fibrillation with RVR Code(s): I48.91 - UNSPECIFIED ATRIAL FIBRILLATION (2) Elevated troponin Code(s): R79.89 - OTHER SPECIFIED ABNORMAL FINDINGS OF BLOOD CHEMISTRY (3) COPD (chronic obstructive pulmonary disease) Code(s): J44.9 - CHRONIC OBSTRUCTIVE PULMONARY DISEASE, UNSPECIFIED (4) Claudication Code(s): I73.9 - PERIPHERAL VASCULAR DISEASE, UNSPECIFIED (5) Hypertension Code(s): I10 - ESSENTIAL (PRIMARY) HYPERTENSION Qualifiers: Hypertension type: essential hypertension Qualified Code(s): I10 - Essential (primary) hypertension (6) Polymyalgia rheumatica Code(s): M35.3 - POLYMYALGIA RHEUMATICA (7) Pulmonary fibrosis Code(s): J84.10 - PULMONARY FIBROSIS, UNSPECIFIED (8) Acute renal insufficiency Code(s): N28.9 - DISORDER OF KIDNEY AND URETER, UNSPECIFIED (9) CHF (congestive heart failure) Code(s): I50.9 - HEART FAILURE, UNSPECIFIED (10) Acute hypoxemic respiratory failure Code(s): J96.01 - ACUTE RESPIRATORY FAILURE WITH HYPOXIA
[2019-05-03] MEDS ORDERED: LEVALBUTEROL HCL 0.31 MG/3 ML VIAL.NEB IH PRN (11:29)
--- NOTE | 2019-05-03 12:32 | CONS ---
DATE OF CONSULTATION: 05/03/2019 REFERRING PHYSICIAN: Dimple Beasley MD HISTORY: History is obtained from the chart. Patient is drowsy. Unable to give adequate history. Patient is an 88-year-old male with past medical history of COPD, interstitial lung disease, polymyalgia rheumatica, status post AVR, atrial fibrillation status post pacemaker, hypertension, hyperlipidemia, squamous cell cancer, status post Mohs surgery, prostate cancer. Admitted to [facility] from [facility] secondary tachycardia, weakness, and shortness of breath. Patient apparently reported that he felt very weak and heart was racing. He presented to the emergency room with above. In the ER, he was found to be in rapid atrial fibrillation with rapid ventricular response. He was transferred up to medical telemetry unit for further monitoring. Patient apparently was recently hospitalized at [facility] secondary to CHF and was transferred to [facility] on Monday prior to this admission. Patient in the ER was administered IV diltiazem with good clinical response. Of note is earlier today, the patient was noted to be hypoxic with O2 saturations in the mid 80s at which time he was placed on supplemental O2. Patient has a history of tobacco use. Quit years ago. There is no apparent history of occupational exposure to chemicals or fumes. PAST MEDICAL HISTORY: Again includes status post TAVR in 2017, ASHD status post stent in 2017, status post permanent pacemaker, atrial fibrillation, atrial flutter, polymyalgia rheumatica, COPD, interstitial lung disease, hypertension, hyperlipidemia, peripheral vascular disease. REVIEW OF SYSTEMS: Unable to obtain at this time. MEDICATIONS: Prior to admission include prednisone 15 mg daily, Lipitor 20 mg daily, vitamin D3, aspirin 81 mg, Lasix 40 b.i.d., Aricept 5 mg daily, Coumadin 5 mg daily, and Klonopin. Current medications include prednisone 15, Klonopin 0.5, Cardizem 30 mg every 6 hours, Colace, Namenda, Lipitor, Feosol, Cepacol, Ecotrin, Aricept, and vitamin D3. PHYSICAL EXAMINATION: General: Patient is an elderly male, drowsy in no acute distress. Vital Signs: He is afebrile. Blood pressure is 162/72, respiratory rate is 18 , O2 saturation is currently 96% on O2. HEENT: Normocephalic, atraumatic. Neck: Supple. Heart: Irregularly irregular. S1, S2. Chest: Bilateral crackles. Abdomen: Soft. Bowel sounds are positive. Extremities: No cyanosis or edema. LABORATORIES: WBC 8.3, hemoglobin 10, hematocrit 30.3 with a platelet count of 356,000. Initial INR is 4.10, currently 3.45. Blood gas not performed. BUN 25 , creatinine 1.0. Initially the BUN is 37, creatinine 1.4. Troponin 1.14 initially, currently 0.94. BNP is 2656. Chest x-ray: Chronic interstitial change. Cannot exclude possible left lower lobe infiltrate. IMPRESSION: 1. Acute hypoxemic respiratory failure. 2. Atrial fibrillation with rapid ventricular response. 3. Advanced chronic obstructive pulmonary disease/interstitial lung disease. 4. Aortic stenosis status post aortic valve replacement. 5. Arteriosclerotic heart disease status post stent. 6. Status post permanent pacemaker. 7. Diastolic heart failure. 9. Polymyalgia rheumatica. 10. Squamous cell carcinoma status post Mohs procedure. 11. Anemia. 12. Positive troponins, likely secondary to demand ischemia,r/o nstemi PLAN: Supplemental O2. Rate control as per cardiology. Inhaled bronchodilators as needed. Would use Xopenex via nebulizer if patient requires. Trend troponins. CT scan of the chest. Monitor electrolytes, renal function. Will follow closely. Lasix as needed. LIZBETH HALL M.D. [id number] MTDD
--- NOTE | 2019-05-03 13:42 | PN ---
Teaching Attending Note Name of Resident: Irving Soler ATTENDING PHYSICIAN STATEMENT I saw and evaluated the patient. I reviewed the resident's note and discussed the case with the resident. I agree with the resident's findings and plan as documented. SUBJECTIVE: Feels okay, comfortable, no complaints. Nausea resolved, no vomiting. No fever/chills. OBJECTIVE: Afebrile, Hemodynamically Stable. AAO x 2-3 Last Vital Signs Temp Pulse Resp BP Pulse Ox 97.6 F 78 18 113/58 L 98 05/03/19 10:00 05/03/19 10:00 05/03/19 10:00 05/03/19 10:00 05/03/19 09:00 Heart - S1, S2, SM, irregular Lungs - clear to auscultation. Abdomen - Soft, non-tender. Bowel Sounds normal. Extremities - No edema, no calf tenderness, some abrasions. Neuro - AAO x 2-3. Tone/Power normal all extremities. Laboratory Results - last 24 hr 05/01/19 05/02/19 05/02/19 13:38 13:38 20:30 WBC RBC Hgb Hct MCV MCH MCHC RDW Plt Count MPV PT with INR INR Sodium Potassium Chloride Carbon Dioxide Anion Gap BUN Creatinine Est GFR (CKD-EPI)AfAm Est GFR (CKD-EPI)NonAf Random Glucose Calcium Magnesium Troponin I 1.37 H* 0.94 H* Blood Type O POSITIVE 05/03/19 05/03/19 05/03/19 06:40 06:40 06:40 WBC 8.3 RBC 3.41 L Hgb 10.0 L Hct 30.3 L MCV 88.8 MCH 29.3 MCHC 33.0 RDW 16.2 H Plt Count 356 MPV 6.7 L PT with INR 41.20 H INR 3.45 H Sodium 136 Potassium 4.0 Chloride 102 Carbon Dioxide 26 Anion Gap 9 BUN 25.7 H Creatinine 1.0 Est GFR (CKD-EPI)AfAm 78.64 Est GFR (CKD-EPI)NonAf 67.85 Random Glucose 80 Calcium 8.6 Magnesium 2.0 Troponin I Blood Type Current Medications Generic Name Dose Route Start Last Admin Trade Name Freq PRN Reason Stop Dose Admin Aspirin 81 mg 05/03/19 10:00 05/03/19 10:34 Ecotrin - PO 81 mg DAILY JOSELINE Administration Atorvastatin Calcium 20 mg 05/02/19 22:00 05/02/19 22:41 Lipitor - PO 20 mg HS JOSELINE Administration Benzocaine/Menthol 1 each 05/02/19 14:00 05/03/19 10:34 Cepacol Lozenge - MM 1 each QID JOSELINE Administration Cholecalciferol 1,000 unit 05/03/19 10:00 05/03/19 10:35 Vitamin D3 - PO 1,000 unit DAILY JOSELINE Administration Clonazepam 0.5 mg 05/02/19 22:00 05/03/19 10:35 Klonopin - PO 0.5 mg BID JOSELINE Administration Diltiazem HCl 30 mg 05/02/19 12:00 05/03/19 12:01 Cardizem - PO 30 mg Q6HPO JOSELINE Administration Docusate Sodium 100 mg 05/02/19 22:00 05/03/19 10:34 Colace - PO 100 mg BID JOSELINE Administration Donepezil HCl 5 mg 05/03/19 10:00 05/03/19 10:35 Aricept - PO 5 mg DAILY JOSELINE Administration Ferrous Sulfate 325 mg 05/02/19 17:30 05/03/19 10:34 Feosol - PO 325 mg BIDWM JOSELINE Administration Diltiazem HCl 125 mg/ Sodium 125 mls @ 5 mls/hr 05/02/19 01:45 05/02/19 02:34 Chloride IVPB Not Given TITR JOSELINE Protocol 5 MG/HR Levalbuterol HCl 0.31 mg 05/03/19 11:29 Xopenex IH Q8H PRN ASTHMA Memantine 5 mg 05/03/19 10:00 05/03/19 10:35 Namenda - PO 5 mg DAILY JOSELINE Administration Prednisone 15 mg 05/03/19 07:00 05/03/19 07:49 Deltasone - PO 15 mg AM JOSELINE Administration Home Medications Medication Instructions Recorded predniSONE [Deltasone -] 15 mg PO AM 10/01/14 Atorvastatin Ca [Lipitor] 20 mg PO HS 03/25/16 Cholecalciferol (Vitamin D3) 1,000 unit PO DAILY 03/25/16 [Vitamin D3 -] Acetaminophen [Tylenol .Regular 650 mg PO Q6H PRN tablet 02/05/19 Strength -] Aspirin [Aspirin EC] 81 mg PO DAILY 05/01/19 Benzocaine/Menthol [Cepacol Sore 1 each MM QID 05/01/19 Throat Lozenge] Benzonatate 300 mg PO TID 05/01/19 Donepezil HCl [Aricept -] 5 mg PO DAILY 05/01/19 Memantine HCl [Namenda -] 5 mg PO DAILY 05/01/19 Warfarin Na [Coumadin -] 5 mg PO ASDIR 05/01/19 clonazePAM [Klonopin -] 0.5 mg PO BID 05/01/19 Docusate Sodium [Colace] 100 mg PO BID 05/02/19 Ferrous Sulfate 325 mg PO BID 05/02/19 ASSESSMENT AND PLAN: 88 year old male with history of PMR (on Prednisone), AV stenosis s/p TAVR, s/p AVR, Atrial fibrillation (on coumadin), LBBB, s/p PPM, HTN, HLD, PAD, Squamous Cell Ca s/p MOHS, Prostate Ca, sent to ED from [facility] with generalized weakkness and RVR. Patient reports nausea, now resolved. Denies CP/palpitations/ lightheadedness. 1. Atrial fibrillation with RVR Bystolic recently stopped. RVR resolved with Cardizem IV ECG - Atrial fibrillation with RVR Evaluated by Cardiology - recommend oral Diltiazem Normally n Coumadin, now held due to supratherapeutic INR. 2. Systolic CHF - ?Acute versus Chronic No evidence of decompensation Echo - Global Hypokinesis with EF 40-45%, moderate MR, bioprosthetic AV Evaluated by cardiology - plan unclear re: need for/timing of MPI. 2. Troponin Egression secondary to demand ischemia due to RVR Peak TropI 1.37 No evidence of ACS as per Cardiology initially but now given Echo findings, consideration for MPI by Cardio. Continue ASA, Statin. 3. Spratherapeutic INR, 3.45 Coumadin held. 4. HLD - normally on Lipitor. 5. Dementia with emotional lability - continue Namenda, Donepezil, Clonazepam. previously on Zyprexa recommended by Psychiatry on last admission. 6. HTN - Previously on Bystolic, stopped on recent admission to [facility] for unclear reasons. 7. PMR - continue Prednisone. 8. Normocytic Anemia sec to chronic disease, Iron Sat 17% (borderline), B12 level 681, Folate 9. No evidence of active GI blood loss. Iron supplementation ongoing. Had prior Colonoscopy showing multiple polyps. For discussion of further Ix as out-patient with GI. 9. AV Stenosis s/p TAVR - previously on BB, now stopped. Repeat Echo findings above. 10. 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 No evidence of acute exacerbation. CXR - questionable infiltrate L base. No clear signs of infection - no cough/sputum/ fevers/leukocytosis. Pulm evaluated - no recommendation for Rx/Abx. CT Chest ordered. 11. CICI - resolving. DVT Px - on Coumadin, supratherapeutic INR.
--- NOTE | 2019-05-03 14:08 | PN ---
Physical Exam: SUBJECTIVE: Patient seen and examined at the bedside. Patient was tired but stated that he was doing well. Denied any acute complaints of cp, sob, abd pain , n/v/c/d, fever, chills, headaches, dizziness, lightheadedness. OBJECTIVE: Vital Signs Period Temp Pulse Resp BP Sys/Scott Pulse Ox Last 24 Hr 97.6 F-99.4 F 70-83 18-18 109-162/50-72 92-99 GENERAL: The patient is awake, alert, and oriented to self, location, year and month, in mild acute distress. HEAD: Normal with no signs of trauma. EYES: PERRL, extraocular movements intact, sclera anicteric, Some dryness around the eyes ENT: Oropharynx clear without exudates, moist mucous membranes. NECK: Trachea midline, full range of motion, supple. LUNGS: Crackles noted in bilateral bases L>R, no wheezes, no accessory muscle use. HEART: Regular rate and rhythm, S1, S2 with systolic ejection murmur. ABDOMEN: Soft, nontender, nondistended, normoactive bowel sounds, no guarding, no rebound, no masses. EXTREMITIES: 1+ pulses, warm, well-perfused, no edema. NEUROLOGICAL: Cranial nerves II through XII grossly intact. 5/5 muscle strength upper and lower extremities, bilaterally. PSYCH: Upset mood. SKIN: Warm, dry, normal turgor, scattered excoriations noted on bilateral lower legs. Laboratory Results - last 24 hr 05/01/19 05/02/19 05/02/19 13:38 13:38 20:30 WBC RBC Hgb Hct MCV MCH MCHC RDW Plt Count MPV PT with INR INR Sodium Potassium Chloride Carbon Dioxide Anion Gap BUN Creatinine Est GFR (CKD-EPI)AfAm Est GFR (CKD-EPI)NonAf Random Glucose Calcium Magnesium Troponin I 1.37 H* 0.94 H* Blood Type O POSITIVE 05/03/19 05/03/19 05/03/19 06:40 06:40 06:40 WBC 8.3 RBC 3.41 L Hgb 10.0 L Hct 30.3 L MCV 88.8 MCH 29.3 MCHC 33.0 RDW 16.2 H Plt Count 356 MPV 6.7 L PT with INR 41.20 H INR 3.45 H Sodium 136 Potassium 4.0 Chloride 102 Carbon Dioxide 26 Anion Gap 9 BUN 25.7 H Creatinine 1.0 Est GFR (CKD-EPI)AfAm 78.64 Est GFR (CKD-EPI)NonAf 67.85 Random Glucose 80 Calcium 8.6 Magnesium 2.0 Troponin I Blood Type Active Medications Generic Name Dose Route Start Last Admin Trade Name Freq PRN Reason Stop Dose Admin Aspirin 81 mg 05/03/19 10:00 05/03/19 10:34 Ecotrin - PO 81 mg DAILY JOSELINE Administration Atorvastatin Calcium 20 mg 05/02/19 22:00 05/02/19 22:41 Lipitor - PO 20 mg HS JOSELINE Administration Benzocaine/Menthol 1 each 05/02/19 14:00 05/03/19 10:34 Cepacol Lozenge - MM 1 each QID JOSELINE Administration Cholecalciferol 1,000 unit 05/03/19 10:00 05/03/19 10:35 Vitamin D3 - PO 1,000 unit DAILY JOSELINE Administration Clonazepam 0.5 mg 05/02/19 22:00 05/03/19 10:35 Klonopin - PO 0.5 mg BID JOSELINE Administration Diltiazem HCl 30 mg 05/02/19 12:00 05/03/19 12:01 Cardizem - PO 30 mg Q6HPO JOSELINE Administration Docusate Sodium 100 mg 05/02/19 22:00 05/03/19 10:34 Colace - PO 100 mg BID JOSELINE Administration Donepezil HCl 5 mg 05/03/19 10:00 05/03/19 10:35 Aricept - PO 5 mg DAILY JOSELINE Administration Ferrous Sulfate 325 mg 05/02/19 17:30 05/03/19 10:34 Feosol - PO 325 mg BIDWM JOSELINE Administration Diltiazem HCl 125 mg/ Sodium 125 mls @ 5 mls/hr 05/02/19 01:45 05/02/19 02:34 Chloride IVPB Not Given TITR JOSELINE Protocol 5 MG/HR Levalbuterol HCl 0.31 mg 05/03/19 11:29 Xopenex IH Q8H PRN ASTHMA Memantine 5 mg 05/03/19 10:00 05/03/19 10:35 Namenda - PO 5 mg DAILY JOSELINE Administration Prednisone 15 mg 05/03/19 07:00 05/03/19 07:49 Deltasone - PO 15 mg AM JOSELINE Administration ASSESSMENT/PLAN: Saul Yeung is an 88 year old male with past medical history significant for Polymyalgia rheumatica, COPD, Aortic valve replacement, Afib (on Coumadin), LBBB , pacemaker, HTN, NPH, squamous cell carcinoma s/p Mohs surgery, prostate CA admitted for a fib with RVR. A fib with RVR - had Bystolic recently stopped on admission to [facility] - was given Lopressor 5mg 3x and digoxin 0.25mg and is currently rate controlled - troponemia 0.16-->1.14-->1.37-->0.94, likely in setting of afib and demand ischemia, continue to trend to peak, cautious observance and repeat EKG if new symptoms appear - cardiology consulted, recs appreciated - continue diltiazem 30mg q6h - will resume coumadin as per INR, now supratherapeutic, will hold, repeat INR - continue to monitor BP, HR - BNP 2656, no evidence of heart failure - echo showing LV systolic function reducewd EF 40-45%, moderate global hypokinesis of LV, normal RV, moderate mitral and tricuspid regurg, bioprosthetic aortic valve - possibility of MIBI as per cardiology, cardio will discuss with PCP Infiltrate in LLL in setting of chronic interstitial lung disease and COPD - afebrile, no WBC - noted superimposed LLL infiltrate on CXR - pulm consult - CT scan of the chest - inhalers prn, O2 as needed - continue home prednisone CICI - likely in the setting of poor oral intake and dehydration - baseline CRE 0.9-1.1 - CRE today 1.0, resolved, continue to monitor in setting of poor cardiac output Weakness - physical therapy, requiring assistance and recommending SNF placement HTN - continue home medications - continue diltiazem HLD - continue home statin Dementia - continue home Namenda, Aricept, and clonazepam Normocytic Anemia - likely in the setting of chronic interstitial lung disease and chronic steroid use - anemia of chronic disease - continue iron supplementation FEN - no standing fluids to avoid overload - continue to monitor electrolytes and replete as necessary - sodium controlled diet Prophylaxis - on coumadin, currently held due to supratherapeutic INR Dispo - continue to monitor on telemetry Visit type - Emergency Visit Emergency Visit: Yes ED Registration Date: 05/02/19 Care time: The patient presented to the Emergency Department on the above date and was hospitalized for further evaluation of their emergent condition. - New Patient This patient is new to me today: No - Critical Care Critical Care patient: No
[2019-05-03] MEDS ORDERED: ARTIFICIAL TEARS (POLYVINYL ALCOHOL) OPTH DROPS OU PRN (14:09)
[2019-05-03] MEDS ORDERED: CEFTRIAXONE 1 GM in DEXTROSE 5%-WATER - 50 ML IVPB ONE (15:23)
[2019-05-03] MEDS ORDERED: cefTRIAXone SODIUM 1 GM VIAL ONE (16:47)
[2019-05-03] MEDS ORDERED: DEXTROSE 5%-WATER - 50 ML IVPB ONE (16:47)
[2019-05-03] MEDS: ATORVASTATIN CA 20 MG TABLET (FP) PO SCH (21:07)
[2019-05-04] MEDS: dilTIAZem HCL 30 MG TABLET (FP) PO SCH ×4 (01:03→17:08)
[2019-05-04] MEDS: predniSONE 10 MG TABLET (UD) PO SCH (06:39)
[2019-05-04 07:28] LABS: INR 3.03 (0.83-1.09); PROTHROMBIN TIME (PATIENT) 36.1 SEC (9.7-13.0)
--- NOTE | 2019-05-04 10:08 | PN ---
Progress Note, Physician History of Present Illness: pulmonary alert,no distress,-sob - Current Medication List Current Medications: Active Medications Artificial Tears (Artificial Tears) 1 drop OU BID PRN PRN Reason: DRY EYES Aspirin (Ecotrin -) 81 mg PO DAILY [facility] Last Admin: 05/03/19 10:34 Dose: 81 mg Atorvastatin Calcium (Lipitor -) 20 mg PO HS [facility] Last Admin: 05/03/19 21:07 Dose: 20 mg Benzocaine/Menthol (Cepacol Lozenge -) 1 each MM QID [facility] Last Admin: 05/03/19 21:10 Dose: Not Given Cholecalciferol (Vitamin D3 -) 1,000 unit PO DAILY [facility] Last Admin: 05/03/19 10:35 Dose: 1,000 unit Clonazepam (Klonopin -) 0.5 mg PO BID [facility] Last Admin: 05/03/19 21:07 Dose: 0.5 mg Diltiazem HCl (Cardizem -) 30 mg PO Q6HPO [facility] Last Admin: 05/04/19 06:39 Dose: 30 mg Docusate Sodium (Colace -) 100 mg PO BID [facility] Last Admin: 05/03/19 21:07 Dose: 100 mg Donepezil HCl (Aricept -) 5 mg PO DAILY [facility] Last Admin: 05/03/19 10:35 Dose: 5 mg Ferrous Sulfate (Feosol -) 325 mg PO BIDWM [facility] Last Admin: 05/03/19 16:53 Dose: 325 mg Diltiazem HCl 125 mg/ Sodium (Chloride) 125 mls @ 5 mls/hr IVPB TITR [facility]; Protocol Last Admin: 05/02/19 02:34 Dose: Not Given Levalbuterol HCl (Xopenex) 0.31 mg IH Q8H PRN PRN Reason: ASTHMA Memantine (Namenda -) 5 mg PO DAILY [facility] Last Admin: 05/03/19 10:35 Dose: 5 mg Prednisone (Deltasone -) 15 mg PO AM [facility] Last Admin: 05/04/19 06:39 Dose: 15 mg Warfarin Sodium (Coumadin -) 5 mg PO ONCE ONE Stop: 05/04/19 18:01 - Objective Vital Signs: Vital Signs Temperature 97.9 F 05/04/19 06:00 Pulse Rate 65 05/04/19 06:00 Respiratory Rate 18 05/04/19 06:00 Blood Pressure 138/66 05/04/19 06:00 O2 Sat by Pulse Oximetry (%) 98 05/03/19 22:00 Labs: CBC, BMP 05/03/19 06:40 05/03/19 06:40 INR, PTT INR 3.03 (0.83-1.09) H 05/04/19 06:15 - ....Imaging Cat Scan: Image Reviewed (severe ild,rul mass,rll consolidation) Problem List - Problems (1) Atrial fibrillation with RVR Code(s): I48.91 - UNSPECIFIED ATRIAL FIBRILLATION (2) Elevated troponin Code(s): R79.89 - OTHER SPECIFIED ABNORMAL FINDINGS OF BLOOD CHEMISTRY (3) COPD (chronic obstructive pulmonary disease) Code(s): J44.9 - CHRONIC OBSTRUCTIVE PULMONARY DISEASE, UNSPECIFIED (4) Claudication Code(s): I73.9 - PERIPHERAL VASCULAR DISEASE, UNSPECIFIED (5) Hypertension Code(s): I10 - ESSENTIAL (PRIMARY) HYPERTENSION Qualifiers: Hypertension type: essential hypertension Qualified Code(s): I10 - Essential (primary) hypertension (6) Polymyalgia rheumatica Code(s): M35.3 - POLYMYALGIA RHEUMATICA (7) Pulmonary fibrosis Code(s): J84.10 - PULMONARY FIBROSIS, UNSPECIFIED (8) Acute renal insufficiency Code(s): N28.9 - DISORDER OF KIDNEY AND URETER, UNSPECIFIED (9) CHF (congestive heart failure) Code(s): I50.9 - HEART FAILURE, UNSPECIFIED (10) Acute hypoxemic respiratory failure Code(s): J96.01 - ACUTE RESPIRATORY FAILURE WITH HYPOXIA Assessment/Plan IMP ACUTE HYPOXEMIC RESPIRATORY FAILURE IMPROVING AFIB WITH RVR COPD/ILD S/P AVR ASHD S/P STENT S/P PPM ACUTE ON CHRONIC CHF LV SYSTOLIC DYSFUNCTION POLYMYALGIA RHEUMATICA SQUAMOUS CELL CA S/P MOHS PROCEDURE ANEMIA + TROPONIN LIKELY DEMAND ISCHEMIA RUL MASS R/O CA PLAN O2 RATE CONTROL PER CARDIOLOGY INHALED BRONCHODILATORS NEEDED TREND TROPONINS MONITOR LYTES,RENAL FUNCTION DR HALL Problem List - Problems (1) Atrial fibrillation with RVR Code(s): I48.91 - UNSPECIFIED ATRIAL FIBRILLATION (2) Elevated troponin Code(s): R79.89 - OTHER SPECIFIED ABNORMAL FINDINGS OF BLOOD CHEMISTRY (3) COPD (chronic obstructive pulmonary disease) Code(s): J44.9 - CHRONIC OBSTRUCTIVE PULMONARY DISEASE, UNSPECIFIED (4) Claudication Code(s): I73.9 - PERIPHERAL VASCULAR DISEASE, UNSPECIFIED (5) Hypertension Code(s): I10 - ESSENTIAL (PRIMARY) HYPERTENSION Qualifiers: Hypertension type: essential hypertension Qualified Code(s): I10 - Essential (primary) hypertension (6) Polymyalgia rheumatica Code(s): M35.3 - POLYMYALGIA RHEUMATICA (7) Pulmonary fibrosis Code(s): J84.10 - PULMONARY FIBROSIS, UNSPECIFIED (8) Acute renal insufficiency Code(s): N28.9 - DISORDER OF KIDNEY AND URETER, UNSPECIFIED (9) CHF (congestive heart failure) Code(s): I50.9 - HEART FAILURE, UNSPECIFIED (10) Acute hypoxemic respiratory failure Code(s): J96.01 - ACUTE RESPIRATORY FAILURE WITH HYPOXIA
--- NOTE | 2019-05-04 10:14 | PN ---
Progress Note (short form) - Note Progress Note: s: no cp sob palps dizzy TELE: sr, occ ap Current Medications Generic Name Dose Route Start Last Admin Trade Name Freq PRN Reason Stop Dose Admin Artificial Tears 1 drop 05/03/19 14:09 Artificial Tears OU BID PRN DRY EYES Aspirin 81 mg 05/03/19 10:00 05/03/19 10:34 Ecotrin - PO 81 mg DAILY JOSELINE Administration Atorvastatin Calcium 20 mg 05/02/19 22:00 05/03/19 21:07 Lipitor - PO 20 mg HS JOSELINE Administration Benzocaine/Menthol 1 each 05/02/19 14:00 05/03/19 21:10 Cepacol Lozenge - MM Not Given QID JOSELINE Cholecalciferol 1,000 unit 05/03/19 10:00 05/03/19 10:35 Vitamin D3 - PO 1,000 unit DAILY JOSELINE Administration Clonazepam 0.5 mg 05/02/19 22:00 05/03/19 21:07 Klonopin - PO 0.5 mg BID JOSELINE Administration Diltiazem HCl 30 mg 05/02/19 12:00 05/04/19 06:39 Cardizem - PO 30 mg Q6HPO JOSELINE Administration Docusate Sodium 100 mg 05/02/19 22:00 05/03/19 21:07 Colace - PO 100 mg BID JOSELINE Administration Donepezil HCl 5 mg 05/03/19 10:00 05/03/19 10:35 Aricept - PO 5 mg DAILY JOSELINE Administration Ferrous Sulfate 325 mg 05/02/19 17:30 05/03/19 16:53 Feosol - PO 325 mg BIDWM JOSELINE Administration Diltiazem HCl 125 mg/ Sodium 125 mls @ 5 mls/hr 05/02/19 01:45 05/02/19 02:34 Chloride IVPB Not Given TITR JOSELINE Protocol 5 MG/HR Levalbuterol HCl 0.31 mg 05/03/19 11:29 Xopenex IH Q8H PRN ASTHMA Memantine 5 mg 05/03/19 10:00 05/03/19 10:35 Namenda - PO 5 mg DAILY JOSELINE Administration Prednisone 15 mg 05/03/19 07:00 05/04/19 06:39 Deltasone - PO 15 mg AM JOSELINE Administration Warfarin Sodium 5 mg 12/14/19 18:00 Coumadin - PO 05/04/19 18:01 ONCE ONE Vital Signs Period Temp Pulse Resp BP Sys/Scott Pulse Ox Last 24 Hr 97.9 F-98.8 F 65-70 18-20 106-138/43-72 98-98 Constitutional: Yes: No Distress Cardiovascular: Yes: Regular Rate and Rhythm Respiratory: Yes: CTA Bilaterally Gastrointestinal: Yes: Soft (nt) Edema: No Neurological: Yes: Alert no jaundice diaphoresis Labs: CBC, BMP 05/03/19 06:40 05/03/19 06:40 - ....Imaging EKG: Image Reviewed Assessment/Plan echo 10/2017: nl lv/rv, nl bio avr, mild mr/tr/pr, mod phtn cxr: no chf, +ILD, +?pna ecg: afib with rvr, old lbbb a/p: 88 m hx pad (bl le dz), htn, hld, copd/ild, as s/p tavr 2016, cad s/p pci (2017 sophia mlad), ppm ([place]), afib/aflutter here with rvr. afib with rvr: -back in sr now -cont dilt for rate control, can change to long acting daily dosing on dc -cont coumadin per INR htn: -cont dilt as above, holding home bystolic hld: -cont home statin tavr: -echo w/ nl fxn prosthesis +trops, cad, hx pci: -trop mildly elevated here, trend is flat and coming down. Unlikely ACS, most likely from demand ischemia from presenting rvr/low bp. -Echo now shows moderate LV dysx new from 2018 which may be due to AF w/ RVR. Will need repeat echo as outpt to monitor for improvement -cont ac, asa, statin ppm: -routine outpt checks
[2019-05-04] MEDS: clonazePAM 0.5 MG TABLET PO SCH ×2 (10:54→21:24)
[2019-05-04] MEDS: DONEPEZIL HCL 5 MG TABLET (FP) PO SCH (10:54)
[2019-05-04] MEDS: MEMANTINE HCL 5 MG TABLET (UD) PO SCH (10:54)
[2019-05-04] MEDS: FERROUS SO4 325 MG TABLET (FP) PO SCH ×2 (10:54→17:08)
[2019-05-04] MEDS: ASPIRIN COATED 81 MG TABLET.EC PO SCH (10:54)
[2019-05-04] MEDS: DOCUSATE SODIUM 100 MG CAPSULE (FP) PO SCH ×2 (10:54→21:24)
[2019-05-04] MEDS: BENZOCAINE/MENTH/CETYLPYRD CL 1 EACH LOZENGE MM SCH ×4 (10:55→21:25)
[2019-05-04] MEDS: CHOLECALCIFEROL (VIT D3) 1,000 UNIT (25 MCG) TABLET PO SCH (10:55)
--- NOTE | 2019-05-04 17:22 | PN ---
Progress Note (short form) - Note Progress Note: SUBJECTIVE: Feels well, comfortable, no complaints. Nausea resolved, no vomiting. No fever/chills. OBJECTIVE: Afebrile, Hemodynamically Stable. AAO x 2-3 Last Vital Signs Temp Pulse Resp BP Pulse Ox 97.8 F 84 18 108/54 L 98 05/04/19 14:00 05/04/19 14:00 05/04/19 14:00 05/04/19 14:00 05/04/19 09:00 Heart - S1, S2, SM, irregular Lungs - clear to auscultation. Abdomen - Soft, non-tender. Bowel Sounds normal. Extremities - No edema, no calf tenderness, some abrasions. Neuro - AAO x 2-3. Tone/Power normal all extremities. Laboratory Results - last 24 hr 05/04/19 06:15 PT with INR 36.10 H INR 3.03 H Current Medications Generic Name Dose Route Start Last Admin Trade Name Freq PRN Reason Stop Dose Admin Artificial Tears 1 drop 05/03/19 14:09 Artificial Tears OU BID PRN DRY EYES Aspirin 81 mg 05/03/19 10:00 05/04/19 10:54 Ecotrin - PO 81 mg DAILY JOSELINE Administration Atorvastatin Calcium 20 mg 05/02/19 22:00 05/03/19 21:07 Lipitor - PO 20 mg HS JOSELINE Administration Benzocaine/Menthol 1 each 05/02/19 14:00 05/04/19 17:06 Cepacol Lozenge - MM Not Given QID JOSELINE Cholecalciferol 1,000 unit 05/03/19 10:00 05/04/19 10:55 Vitamin D3 - PO 1,000 unit DAILY JOSELINE Administration Clonazepam 0.5 mg 05/02/19 22:00 05/04/19 10:54 Klonopin - PO 0.5 mg BID JOSELINE Administration Diltiazem HCl 30 mg 05/02/19 12:00 05/04/19 17:08 Cardizem - PO 30 mg Q6HPO JOSELINE Administration Docusate Sodium 100 mg 05/02/19 22:00 05/04/19 10:54 Colace - PO 100 mg BID JOSELINE Administration Donepezil HCl 5 mg 05/03/19 10:00 05/04/19 10:54 Aricept - PO 5 mg DAILY JOSELINE Administration Ferrous Sulfate 325 mg 05/02/19 17:30 05/04/19 17:08 Feosol - PO 325 mg BIDWM JOSELINE Administration Diltiazem HCl 125 mg/ Sodium 125 mls @ 5 mls/hr 05/02/19 01:45 05/02/19 02:34 Chloride IVPB Not Given TITR JOSELINE Protocol 5 MG/HR Levalbuterol HCl 0.31 mg 05/03/19 11:29 Xopenex IH Q8H PRN ASTHMA Memantine 5 mg 05/03/19 10:00 05/04/19 10:54 Namenda - PO 5 mg DAILY JOSELINE Administration Prednisone 15 mg 05/03/19 07:00 05/04/19 06:39 Deltasone - PO 15 mg AM JOSELINE Administration Warfarin Sodium 5 mg 05/04/19 18:00 05/04/19 17:08 Coumadin - PO 05/04/19 18:01 5 mg ONCE ONE Administration Home Medications Medication Instructions Recorded predniSONE [Deltasone -] 15 mg PO AM 10/01/14 Atorvastatin Ca [Lipitor] 20 mg PO HS 03/25/16 Cholecalciferol (Vitamin D3) 1,000 unit PO DAILY 03/25/16 [Vitamin D3 -] Acetaminophen [Tylenol .Regular 650 mg PO Q6H PRN tablet 02/05/19 Strength -] Aspirin [Aspirin EC] 81 mg PO DAILY 05/01/19 Benzocaine/Menthol [Cepacol Sore 1 each MM QID 05/01/19 Throat Lozenge] Benzonatate 300 mg PO TID 05/01/19 Donepezil HCl [Aricept -] 5 mg PO DAILY 05/01/19 Memantine HCl [Namenda -] 5 mg PO DAILY 05/01/19 Warfarin Na [Coumadin -] 5 mg PO ASDIR 05/01/19 clonazePAM [Klonopin -] 0.5 mg PO BID 05/01/19 Docusate Sodium [Colace] 100 mg PO BID 05/02/19 Ferrous Sulfate 325 mg PO BID 05/02/19 Olanzapine 5 mg PO HS 05/04/19 ASSESSMENT AND PLAN: 88 year old male with history of PMR (on Prednisone), AV stenosis s/p TAVR, s/p AVR, Atrial fibrillation (on coumadin), LBBB, s/p PPM, HTN, HLD, PAD, Squamous Cell Ca s/p MOHS, Prostate Ca, sent to ED from [facility] with generalized weakness and RVR. Patient reports nausea, now resolved. Denies CP/palpitations/ lightheadedness. 1. Atrial fibrillation with RVR ECG - Atrial fibrillation with RVR Bystolic recently stopped. RVR resolved with Cardizem IV. Evaluated by Cardiology - recommend oral Diltiazem Normally on Coumadin, initially held due to supratherapeutic INR, will resume at 5mg. 2. Systolic CHF - No evidence of decompensation ?related to RVR. Echo - Global Hypokinesis with EF 40-45%, moderate MR, bioprosthetic AV Evaluated by cardiology - plan unclear re: need for/timing of MPI. 2. Troponin Egression secondary to demand ischemia due to RVR Peak TropI 1.37 No evidence of ACS as per Cardiology initially but now given Echo findings, consideration for MPI by Cardio. Continue ASA, Statin. 3. Spratherapeutic INR, reslving, INR now 3.03 Coumadin to be resumed at 5mg tonight. 4. HLD - normally on Lipitor. 5. Dementia with emotional lability - continue Namenda, Donepezil, Clonazepam. previously on Zyprexa recommended by Psychiatry on last admission. 6. HTN - Previously on Bystolic, stopped on recent admission to [facility] for unclear reasons. Now on Cardizem. 7. PMR - continue Prednisone. 8. Normocytic Anemia sec to chronic disease, Iron Sat 17% (borderline), B12 level 681, Folate 9. No evidence of active GI blood loss. Iron supplementation ongoing. Had prior Colonoscopy showing multiple polyps. For discussion of further Ix as out-patient with GI. 9. AV Stenosis s/p TAVR - previously on BB, now stopped. Repeat Echo findings above. 10. 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 No evidence of acute exacerbation. CXR - questionable infiltrate L base. No clear signs of infection - no cough/sputum/ fevers/leukocytosis. Pulm evaluated - no recommendation for Rx/Abx. 11. RUL Lung Mass, increasing in size on repeat CT Chest. Findings suspicious for malignancy. Further management as per Pulm. 12. CICI - resolved 13. UTI - Urine Cx - Klebsiella. Afebrile. Received 1 dose Ceftriaxone on . Will resume.Renal US - no hydronephrosis/obstruction. DVT Px - on Coumadin. Visit type - Emergency Visit Emergency Visit: Yes ED Registration Date: 05/02/19 Care time: The patient presented to the Emergency Department on the above date and was hospitalized for further evaluation of their emergent condition. - New Patient This patient is new to me today: No - Critical Care Critical Care patient: No - Discharge Referral Referred to [facility] Med [facility] No
[2019-05-04] MEDS ORDERED: DEXTROSE 5%-WATER - 50 ML IVPB ONE (17:50)
[2019-05-04] MEDS ORDERED: cefTRIAXone SODIUM 1 GM VIAL ONE (17:50)
[2019-05-04] MEDS: CEFTRIAXONE 1 GM in DEXTROSE 5%-WATER - 50 ML IVPB SCH (17:53)
[2019-05-04] MEDS ORDERED: WARFARIN NA 5 MG TABLET (UD) PO ONE (18:00)
[2019-05-04] MEDS: ATORVASTATIN CA 20 MG TABLET (FP) PO SCH (21:24)
[2019-05-05] MEDS: dilTIAZem HCL 30 MG TABLET (FP) PO SCH ×4 (00:11→17:51)
[2019-05-05] MEDS: predniSONE 10 MG TABLET (UD) PO SCH (06:34)
[2019-05-05] MEDS: FERROUS SO4 325 MG TABLET (FP) PO SCH ×2 (08:58→17:51)
[2019-05-05 10:00] LABS: EOS % 1.5 % (0-4.5); HEMATOCRIT 28.6 % (35.4-49); HEMOGLOBIN 9.5 GM/dL (11.7-16.9); MCH 29.5 pg (25.7-33.7); MCHC 33.1 g/dl (32.0-35.9); MEAN CELL VOLUME 88.9 fl (80-96); MEAN PLT VOLUME 7.6 fl (7.5-11.1); MONO % 3.7 % (3.8-10.2); NEUT % 84.8 % (42.8-82.8); PLATELET COUNT 361 K/MM3 (134-434); RBC 3.22 M/mm3 (4.00-5.60); RDW 16.2 % (11.9-15.9); WHITE BLOOD COUNT 8.3 K/mm3 (4.0-10.0)
[2019-05-05] MEDS ORDERED: DEXTROSE 5%-WATER - 50 ML IVPB ONE (10:05)
[2019-05-05] MEDS ORDERED: cefTRIAXone SODIUM 1 GM VIAL ONE (10:05)
[2019-05-05] MEDS: CEFTRIAXONE 1 GM in DEXTROSE 5%-WATER - 50 ML IVPB SCH (10:10)
[2019-05-05] MEDS: CHOLECALCIFEROL (VIT D3) 1,000 UNIT (25 MCG) TABLET PO SCH (10:11)
[2019-05-05] MEDS: BENZOCAINE/MENTH/CETYLPYRD CL 1 EACH LOZENGE MM SCH ×4 (10:11→21:53)
[2019-05-05] MEDS: DOCUSATE SODIUM 100 MG CAPSULE (FP) PO SCH ×2 (10:11→21:52)
[2019-05-05] MEDS: DONEPEZIL HCL 5 MG TABLET (FP) PO SCH (10:11)
[2019-05-05] MEDS: clonazePAM 0.5 MG TABLET PO SCH ×2 (10:11→21:52)
[2019-05-05] MEDS: ASPIRIN COATED 81 MG TABLET.EC PO SCH (10:12)
[2019-05-05] MEDS: MEMANTINE HCL 5 MG TABLET (UD) PO SCH (10:14)
[2019-05-05 10:15] LABS: INR 2.99 (0.83-1.09); PROTHROMBIN TIME (PATIENT) 35.7 SEC (9.7-13.0)
[2019-05-05 10:23] LABS: BLOOD UREA NITROGEN 15.2 mg/dL (7-18); CALCIUM 8.4 mg/dL (8.5-10.1); CREATININE 0.9 mg/dL (0.55-1.3); POTASSIUM 3.6 mmol/L (3.5-5.1)
--- NOTE | 2019-05-05 10:27 | PN ---
Progress Note (short form) - Note Progress Note: s: no cp sob palps dizzy TELE: sr, occ ap Current Medications Generic Name Dose Route Start Last Admin Trade Name Freq PRN Reason Stop Dose Admin Artificial Tears 1 drop 05/03/19 14:09 Artificial Tears OU BID PRN DRY EYES Aspirin 81 mg 05/03/19 10:00 05/05/19 10:12 Ecotrin - PO 81 mg DAILY JOSELINE Administration Atorvastatin Calcium 20 mg 05/02/19 22:00 05/04/19 21:24 Lipitor - PO 20 mg HS JOSELINE Administration Benzocaine/Menthol 1 each 05/02/19 14:00 05/05/19 10:11 Cepacol Lozenge - MM Not Given QID JOSELINE Cholecalciferol 1,000 unit 05/03/19 10:00 05/05/19 10:11 Vitamin D3 - PO 1,000 unit DAILY JOSELINE Administration Clonazepam 0.5 mg 05/02/19 22:00 05/05/19 10:11 Klonopin - PO 0.5 mg BID JOSELINE Administration Diltiazem HCl 30 mg 05/02/19 12:00 05/05/19 06:34 Cardizem - PO 30 mg Q6HPO JOSELINE Administration Docusate Sodium 100 mg 05/02/19 22:00 05/05/19 10:11 Colace - PO 100 mg BID JOSELINE Administration Donepezil HCl 5 mg 05/03/19 10:00 05/05/19 10:11 Aricept - PO 5 mg DAILY JOSELINE Administration Ferrous Sulfate 325 mg 05/02/19 17:30 05/05/19 08:58 Feosol - PO 325 mg BIDWM JOSELINE Administration Diltiazem HCl 125 mg/ Sodium 125 mls @ 5 mls/hr 05/02/19 01:45 05/02/19 02:34 Chloride IVPB Not Given TITR JOSELINE Protocol 5 MG/HR Ceftriaxone Sodium 1 gm/ 50 mls @ 200 mls/hr 05/04/19 17:30 05/05/19 10:10 Dextrose IVPB 200 mls/hr DAILY JOSELINE Administration Protocol Levalbuterol HCl 0.31 mg 05/03/19 11:29 Xopenex IH Q8H PRN ASTHMA Memantine 5 mg 05/03/19 10:00 05/05/19 10:14 Namenda - PO 5 mg DAILY JOSELINE Administration Prednisone 15 mg 05/03/19 07:00 05/05/19 06:34 Deltasone - PO 15 mg AM JOSELINE Administration Vital Signs Period Temp Pulse Resp BP Sys/Scott Pulse Ox Last 24 Hr 97.4 F-98.8 F 18-84 16-78 108-157/54-81 96-97 Constitutional: Yes: No Distress Cardiovascular: Yes: Regular Rate and Rhythm Respiratory: Yes: CTA Bilaterally Gastrointestinal: Yes: Soft (nt) Edema: No Neurological: Yes: Alert no jaundice diaphoresis Labs: CBC, BMP 05/05/19 09:23 05/05/19 09:23 - ....Imaging EKG: Image Reviewed Assessment/Plan echo 10/2017: nl lv/rv, nl bio avr, mild mr/tr/pr, mod phtn cxr: no chf, +ILD, +?pna ecg: afib with rvr, old lbbb a/p: 88 m hx pad (bl le dz), htn, hld, copd/ild, as s/p tavr 2016, cad s/p pci (2017 sophia mlad), ppm ([employer]), afib/aflutter here with rvr. afib with rvr: -back in sr now -cont dilt for rate control, can change to long acting daily dosing on dc -cont coumadin per INR htn: -cont dilt as above, holding home bystolic hld: -cont home statin tavr: -echo w/ nl fxn prosthesis +trops, cad, hx pci: -trop mildly elevated here, trend is flat and coming down. Unlikely ACS, most likely from demand ischemia from presenting rvr/low bp. -Echo now shows moderate LV dysx new from 2018 which may be due to AF w/ RVR. Will need repeat echo as outpt to monitor for improvement -MIBI will be planned for tomorrow given decline in lvef on echo here and + trops with hx cad. -cont ac, asa, statin ppm: -routine outpt checks
--- NOTE | 2019-05-05 10:52 | PN ---
Progress Note, Physician History of Present Illness: pulmonary awake,alert,comfortable,-resp distress - Current Medication List Current Medications: Active Medications Artificial Tears (Artificial Tears) 1 drop OU BID PRN PRN Reason: DRY EYES Aspirin (Ecotrin -) 81 mg PO DAILY [facility] Last Admin: 05/05/19 10:12 Dose: 81 mg Atorvastatin Calcium (Lipitor -) 20 mg PO HS [facility] Last Admin: 05/04/19 21:24 Dose: 20 mg Benzocaine/Menthol (Cepacol Lozenge -) 1 each MM QID [facility] Last Admin: 05/05/19 10:11 Dose: Not Given Cholecalciferol (Vitamin D3 -) 1,000 unit PO DAILY [facility] Last Admin: 05/05/19 10:11 Dose: 1,000 unit Clonazepam (Klonopin -) 0.5 mg PO BID [facility] Last Admin: 05/05/19 10:11 Dose: 0.5 mg Diltiazem HCl (Cardizem -) 30 mg PO Q6HPO [facility] Last Admin: 05/05/19 06:34 Dose: 30 mg Docusate Sodium (Colace -) 100 mg PO BID [facility] Last Admin: 05/05/19 10:11 Dose: 100 mg Donepezil HCl (Aricept -) 5 mg PO DAILY [facility] Last Admin: 05/05/19 10:11 Dose: 5 mg Ferrous Sulfate (Feosol -) 325 mg PO BIDWM [facility] Last Admin: 05/05/19 08:58 Dose: 325 mg Diltiazem HCl 125 mg/ Sodium (Chloride) 125 mls @ 5 mls/hr IVPB TITR [facility]; Protocol Last Admin: 05/02/19 02:34 Dose: Not Given Ceftriaxone Sodium 1 gm/ (Dextrose) 50 mls @ 200 mls/hr IVPB DAILY [facility]; Protocol Last Admin: 05/05/19 10:10 Dose: 200 mls/hr Levalbuterol HCl (Xopenex) 0.31 mg IH Q8H PRN PRN Reason: ASTHMA Memantine (Namenda -) 5 mg PO DAILY [facility] Last Admin: 05/05/19 10:14 Dose: 5 mg Prednisone (Deltasone -) 15 mg PO AM [facility] Last Admin: 05/05/19 06:34 Dose: 15 mg - Objective Vital Signs: Vital Signs Temperature 98.4 F 05/05/19 08:48 Pulse Rate 68 05/05/19 08:48 Respiratory Rate 68 H 05/05/19 09:00 Blood Pressure 132/69 05/05/19 08:48 O2 Sat by Pulse Oximetry (%) 97 05/05/19 09:00 Constitutional: Yes: Well Nourished, Calm Eyes: Yes: WNL HENT: Yes: WNL Neck: Yes: WNL Cardiovascular: Yes: Pulse Irregular, S1, S2 Respiratory: Yes: Diminished Gastrointestinal: Yes: Normal Bowel Sounds, Soft Extremities: Yes: WNL Edema: No Labs: CBC, BMP 05/05/19 09:23 05/05/19 09:23 INR, PTT INR 2.99 (0.83-1.09) H 05/05/19 09:23 Problem List - Problems (1) Atrial fibrillation with RVR Code(s): I48.91 - UNSPECIFIED ATRIAL FIBRILLATION (2) Elevated troponin Code(s): R79.89 - OTHER SPECIFIED ABNORMAL FINDINGS OF BLOOD CHEMISTRY (3) COPD (chronic obstructive pulmonary disease) Code(s): J44.9 - CHRONIC OBSTRUCTIVE PULMONARY DISEASE, UNSPECIFIED (4) Claudication Code(s): I73.9 - PERIPHERAL VASCULAR DISEASE, UNSPECIFIED (5) Hypertension Code(s): I10 - ESSENTIAL (PRIMARY) HYPERTENSION Qualifiers: Hypertension type: essential hypertension Qualified Code(s): I10 - Essential (primary) hypertension (6) Polymyalgia rheumatica Code(s): M35.3 - POLYMYALGIA RHEUMATICA (7) Pulmonary fibrosis Code(s): J84.10 - PULMONARY FIBROSIS, UNSPECIFIED (8) Acute renal insufficiency Code(s): N28.9 - DISORDER OF KIDNEY AND URETER, UNSPECIFIED (9) CHF (congestive heart failure) Code(s): I50.9 - HEART FAILURE, UNSPECIFIED (10) Acute hypoxemic respiratory failure Code(s): J96.01 - ACUTE RESPIRATORY FAILURE WITH HYPOXIA Assessment/Plan IMP ACUTE HYPOXEMIC RESPIRATORY FAILURE IMPROVING AFIB WITH RVR COPD/ILD S/P AVR ASHD S/P STENT S/P PPM ACUTE ON CHRONIC CHF LV SYSTOLIC DYSFUNCTION POLYMYALGIA RHEUMATICA SQUAMOUS CELL CA S/P MOHS PROCEDURE ANEMIA + TROPONIN LIKELY DEMAND ISCHEMIA CICI improved RUL MASS R/O CA PLAN O2 RATE CONTROL PER CARDIOLOGY INHALED BRONCHODILATORS NEEDED MONITOR LYTES,RENAL FUNCTION ? CT GUIDED BX RUL MASS DR HALL Problem List - Problems (1) Atrial fibrillation with RVR Code(s): I48.91 - UNSPECIFIED ATRIAL FIBRILLATION (2) Elevated troponin Code(s): R79.89 - OTHER SPECIFIED ABNORMAL FINDINGS OF BLOOD CHEMISTRY (3) COPD (chronic obstructive pulmonary disease) Code(s): J44.9 - CHRONIC OBSTRUCTIVE PULMONARY DISEASE, UNSPECIFIED (4) Claudication Code(s): I73.9 - PERIPHERAL VASCULAR DISEASE, UNSPECIFIED (5) Hypertension Code(s): I10 - ESSENTIAL (PRIMARY) HYPERTENSION Qualifiers: Hypertension type: essential hypertension Qualified Code(s): I10 - Essential (primary) hypertension (6) Polymyalgia rheumatica Code(s): M35.3 - POLYMYALGIA RHEUMATICA (7) Pulmonary fibrosis Code(s): J84.10 - PULMONARY FIBROSIS, UNSPECIFIED (8) Acute renal insufficiency Code(s): N28.9 - DISORDER OF KIDNEY AND URETER, UNSPECIFIED (9) CHF (congestive heart failure) Code(s): I50.9 - HEART FAILURE, UNSPECIFIED (10) Acute hypoxemic respiratory failure Code(s): J96.01 - ACUTE RESPIRATORY FAILURE WITH HYPOXIA
--- NOTE | 2019-05-05 11:15 | PN ---
Physical Exam: SUBJECTIVE: Patient seen and examined at the bedside. Patient states he is doing well and endorses good appetite. Denies cp, sob, abd pain, n/v/c/d, fever , chills, headaches, dizziness, lightheadedness, palpitations. OBJECTIVE: Vital Signs Period Temp Pulse Resp BP Sys/Scott Pulse Ox Last 24 Hr 97.4 F-98.8 F 18-84 16-78 108-157/54-81 96-97 GENERAL: The patient is awake, alert, and oriented to self, location, year and month, in no acute distress. HEAD: Normal with no signs of trauma. EYES: PERRL, extraocular movements intact, sclera anicteric. ENT: Oropharynx clear without exudates, moist mucous membranes. NECK: Trachea midline, full range of motion, supple. LUNGS: Crackles noted in bilateral bases L>R, no wheezes, no accessory muscle use. HEART: Regular rate and rhythm, S1, S2 with systolic ejection murmur. ABDOMEN: Soft, nontender, nondistended, normoactive bowel sounds, no guarding, no rebound, no masses. EXTREMITIES: 1+ pulses, warm, well-perfused, no edema. NEUROLOGICAL: Cranial nerves II through XII grossly intact. 5/5 muscle strength upper and lower extremities, bilaterally. PSYCH: Normal mood and affect. SKIN: Warm, dry, normal turgor, scattered excoriations noted on bilateral lower legs. Laboratory Results - last 24 hr 05/05/19 05/05/19 05/05/19 09:23 09:23 09:23 WBC 8.3 RBC 3.22 L Hgb 9.5 L Hct 28.6 L MCV 88.9 MCH 29.5 MCHC 33.1 RDW 16.2 H Plt Count 361 MPV 7.6 D Absolute Neuts (auto) 7.0 Neutrophils % 84.8 H D Lymphocytes % 9.0 D Monocytes % 3.7 L Eosinophils % 1.5 Basophils % 1.0 Nucleated RBC % 0 PT with INR 35.70 H INR 2.99 H Sodium 137 Potassium 3.6 Chloride 102 Carbon Dioxide 28 Anion Gap 8 BUN 15.2 Creatinine 0.9 Est GFR (CKD-EPI)AfAm 89.32 Est GFR (CKD-EPI)NonAf 77.06 Random Glucose 120 H Calcium 8.4 L Active Medications Generic Name Dose Route Start Last Admin Trade Name Lee PRN Reason Stop Dose Admin Artificial Tears 1 drop 05/03/19 14:09 Artificial Tears OU BID PRN DRY EYES Aspirin 81 mg 05/03/19 10:00 05/05/19 10:12 Ecotrin - PO 81 mg DAILY JOSELINE Administration Atorvastatin Calcium 20 mg 05/02/19 22:00 05/04/19 21:24 Lipitor - PO 20 mg HS JOSELINE Administration Benzocaine/Menthol 1 each 05/02/19 14:00 05/05/19 10:11 Cepacol Lozenge - MM Not Given QID JOSELINE Cholecalciferol 1,000 unit 05/03/19 10:00 05/05/19 10:11 Vitamin D3 - PO 1,000 unit DAILY JOSELINE Administration Clonazepam 0.5 mg 05/02/19 22:00 05/05/19 10:11 Klonopin - PO 0.5 mg BID JOSELINE Administration Diltiazem HCl 30 mg 05/02/19 12:00 05/05/19 06:34 Cardizem - PO 30 mg Q6HPO JOSELINE Administration Docusate Sodium 100 mg 05/02/19 22:00 05/05/19 10:11 Colace - PO 100 mg BID JOSELINE Administration Donepezil HCl 5 mg 05/03/19 10:00 05/05/19 10:11 Aricept - PO 5 mg DAILY JOSELINE Administration Ferrous Sulfate 325 mg 05/02/19 17:30 05/05/19 08:58 Feosol - PO 325 mg BIDWM JOSELINE Administration Diltiazem HCl 125 mg/ Sodium 125 mls @ 5 mls/hr 05/02/19 01:45 05/02/19 02:34 Chloride IVPB Not Given TITR JOSELINE Protocol 5 MG/HR Ceftriaxone Sodium 1 gm/ 50 mls @ 200 mls/hr 05/04/19 17:30 05/05/19 10:10 Dextrose IVPB 200 mls/hr DAILY JOSELINE Administration Protocol Levalbuterol HCl 0.31 mg 05/03/19 11:29 Xopenex IH Q8H PRN ASTHMA Memantine 5 mg 05/03/19 10:00 05/05/19 10:14 Namenda - PO 5 mg DAILY JOSELINE Administration Prednisone 15 mg 05/03/19 07:00 05/05/19 06:34 Deltasone - PO 15 mg AM JOSELINE Administration Warfarin Sodium 5 mg 05/05/19 18:00 Coumadin - PO 05/05/19 18:01 ONCE@1800 ONE ASSESSMENT/PLAN: Saul Yeung is an 88 year old male with past medical history significant for Polymyalgia rheumatica, COPD, Aortic valve replacement, Afib (on Coumadin), LBBB , pacemaker, HTN, NPH, squamous cell carcinoma s/p Mohs surgery, prostate CA admitted for a fib with RVR. A fib with RVR - had Bystolic recently stopped on admission to [facility] - was given Lopressor 5mg 3x and digoxin 0.25mg and is currently rate controlled - troponemia 0.16-->1.14-->1.37-->0.94, likely in setting of afib and demand ischemia, continue to trend to peak, cautious observance and repeat EKG if new symptoms appear - cardiology consulted, recs appreciated - continue diltiazem 30mg q6h - will resume coumadin as per INR - continue to monitor BP, HR - BNP 2656, no evidence of heart failure - echo showing LV systolic function reducewd EF 40-45%, moderate global hypokinesis of LV, normal RV, moderate mitral and tricuspid regurg, bioprosthetic aortic valve - MIBI as per cardiology, tomorrow Infiltrate in LLL in setting of chronic interstitial lung disease and COPD - afebrile, no WBC - noted superimposed LLL infiltrate on CXR - pulm consult, recs appreciated - CT scan of the chest noting interval increase in size of mass lesion in the anterior medial aspect of RUL, suspicious for malignancy - can consider CT guided biopsy of mass if patient and family agreeable - inhalers prn, O2 as needed - continue home prednisone UTI - UA negative, Ucx positive for michelle-sensitive Klebsiella - continue ceftriaxone, can convert to PO upon discharge CICI - likely in the setting of poor oral intake and dehydration - baseline CRE 0.9-1.1 - CRE today 1.0, resolved, continue to monitor in setting of poor cardiac output - noted L renal cyst, no hydronephrosis on U/S Weakness - physical therapy, requiring assistance and recommending SNF placement HTN - continue home medications - continue diltiazem HLD - continue home statin Dementia - continue home Namenda, Aricept, and clonazepam Normocytic Anemia - likely in the setting of chronic interstitial lung disease and chronic steroid use - anemia of chronic disease - continue iron supplementation FEN - no standing fluids to avoid overload - continue to monitor electrolytes and replete as necessary - sodium controlled diet Prophylaxis - on coumadin, dosing as per INR Dispo - continue to monitor on telemetry Visit type - Emergency Visit Emergency Visit: Yes ED Registration Date: 05/02/19 Care time: The patient presented to the Emergency Department on the above date and was hospitalized for further evaluation of their emergent condition. - New Patient This patient is new to me today: No - Critical Care Critical Care patient: No
--- NOTE | 2019-05-05 11:21 | PN ---
Teaching Attending Note Name of Resident: Irving Soler ATTENDING PHYSICIAN STATEMENT I saw and evaluated the patient. I reviewed the resident's note and discussed the case with the resident. I agree with the resident's findings and plan as documented. SUBJECTIVE: Feels well, comfortable, no complaints. Nausea resolved, no vomiting. No fever/chills. OBJECTIVE: Afebrile, Hemodynamically Stable. AAO x 3. Brighter, more interactive. Last Vital Signs Temp Pulse Resp BP Pulse Ox 98.4 F 68 68 H 132/69 97 05/05/19 08:48 05/05/19 08:48 05/05/19 09:00 05/05/19 08:48 05/05/19 09:00 Heart - S1, S2, SM, irregular Lungs - clear to auscultation. Abdomen - Soft, non-tender. Bowel Sounds normal. Extremities - No edema, no calf tenderness, some abrasions. Neuro - AAO x 3. Tone/Power normal all extremities. Laboratory Results - last 24 hr 05/05/19 05/05/19 05/05/19 09:23 09:23 09:23 WBC 8.3 RBC 3.22 L Hgb 9.5 L Hct 28.6 L MCV 88.9 MCH 29.5 MCHC 33.1 RDW 16.2 H Plt Count 361 MPV 7.6 D Absolute Neuts (auto) 7.0 Neutrophils % 84.8 H D Lymphocytes % 9.0 D Monocytes % 3.7 L Eosinophils % 1.5 Basophils % 1.0 Nucleated RBC % 0 PT with INR 35.70 H INR 2.99 H Sodium 137 Potassium 3.6 Chloride 102 Carbon Dioxide 28 Anion Gap 8 BUN 15.2 Creatinine 0.9 Est GFR (CKD-EPI)AfAm 89.32 Est GFR (CKD-EPI)NonAf 77.06 Random Glucose 120 H Calcium 8.4 L Current Medications Generic Name Dose Route Start Last Admin Trade Name Freq PRN Reason Stop Dose Admin Artificial Tears 1 drop 05/03/19 14:09 Artificial Tears OU BID PRN DRY EYES Aspirin 81 mg 05/03/19 10:00 05/05/19 10:12 Ecotrin - PO 81 mg DAILY JOSELINE Administration Atorvastatin Calcium 20 mg 05/02/19 22:00 05/04/19 21:24 Lipitor - PO 20 mg HS JOSELINE Administration Benzocaine/Menthol 1 each 05/02/19 14:00 05/05/19 10:11 Cepacol Lozenge - MM Not Given QID JOSELINE Cholecalciferol 1,000 unit 05/03/19 10:00 05/05/19 10:11 Vitamin D3 - PO 1,000 unit DAILY JOSELINE Administration Clonazepam 0.5 mg 05/02/19 22:00 05/05/19 10:11 Klonopin - PO 0.5 mg BID JOSELINE Administration Diltiazem HCl 30 mg 05/02/19 12:00 05/05/19 06:34 Cardizem - PO 30 mg Q6HPO JOSELINE Administration Docusate Sodium 100 mg 05/02/19 22:00 05/05/19 10:11 Colace - PO 100 mg BID JOSELINE Administration Donepezil HCl 5 mg 05/03/19 10:00 05/05/19 10:11 Aricept - PO 5 mg DAILY JOSELINE Administration Ferrous Sulfate 325 mg 05/02/19 17:30 05/05/19 08:58 Feosol - PO 325 mg BIDWM JOSELINE Administration Diltiazem HCl 125 mg/ Sodium 125 mls @ 5 mls/hr 05/02/19 01:45 05/02/19 02:34 Chloride IVPB Not Given TITR JOSELINE Protocol 5 MG/HR Ceftriaxone Sodium 1 gm/ 50 mls @ 200 mls/hr 05/04/19 17:30 05/05/19 10:10 Dextrose IVPB 200 mls/hr DAILY JOSELINE Administration Protocol Levalbuterol HCl 0.31 mg 05/03/19 11:29 Xopenex IH Q8H PRN ASTHMA Memantine 5 mg 05/03/19 10:00 05/05/19 10:14 Namenda - PO 5 mg DAILY JOSELINE Administration Prednisone 15 mg 05/03/19 07:00 05/05/19 06:34 Deltasone - PO 15 mg AM JOSELINE Administration Warfarin Sodium 5 mg 05/05/19 18:00 Coumadin - PO 05/05/19 18:01 ONCE@1800 ONE Home Medications Medication Instructions Recorded predniSONE [Deltasone -] 15 mg PO AM 10/01/14 Atorvastatin Ca [Lipitor] 20 mg PO HS 03/25/16 Cholecalciferol (Vitamin D3) 1,000 unit PO DAILY 03/25/16 [Vitamin D3 -] Acetaminophen [Tylenol .Regular 650 mg PO Q6H PRN tablet 02/05/19 Strength -] Aspirin [Aspirin EC] 81 mg PO DAILY 05/01/19 Benzocaine/Menthol [Cepacol Sore 1 each MM QID 05/01/19 Throat Lozenge] Benzonatate 300 mg PO TID 05/01/19 Donepezil HCl [Aricept -] 5 mg PO DAILY 05/01/19 Memantine HCl [Namenda -] 5 mg PO DAILY 05/01/19 Warfarin Na [Coumadin -] 5 mg PO ASDIR 05/01/19 clonazePAM [Klonopin -] 0.5 mg PO BID 05/01/19 Docusate Sodium [Colace] 100 mg PO BID 05/02/19 Ferrous Sulfate 325 mg PO BID 05/02/19 Olanzapine 5 mg PO HS 05/04/19 ASSESSMENT AND PLAN: 88 year old male with history of PMR (on Prednisone), AV stenosis s/p TAVR, s/p AVR, Atrial fibrillation (on coumadin), LBBB, s/p PPM, HTN, HLD, PAD, Squamous Cell Ca s/p MOHS, Prostate Ca, sent to ED from [facility] with generalized weakness and RVR. Patient reports nausea, now resolved. Denies CP/palpitations/ lightheadedness. 1. Atrial fibrillation with RVR ECG - Atrial fibrillation with RVR Bystolic recently stopped. RVR resolved with Cardizem IV. Evaluated by Cardiology - recommend oral Diltiazem Normally on Coumadin, initially held due to supratherapeutic INR, resumed at 5mg. 2. Systolic CHF - No evidence of decompensation ?related to RVR. Echo - Global Hypokinesis with EF 40-45%, moderate MR, bioprosthetic AV Evaluated by cardiology - plan for MIBI in AM 05/06. 2. Troponin Egression secondary to demand ischemia due to RVR Peak TropI 1.37 No evidence of ACS as per Cardiology initially but now given Echo findings, recommendation for MPI by Cardio. Continue ASA, Statin. 3. Spratherapeutic INR, resolved Coumadin resumed at 5mg. 4. HLD - normally on Lipitor. 5. Dementia with emotional lability - continue Namenda, Donepezil, Clonazepam. Previously on Zyprexa recommended by Psychiatry on last admission. 6. HTN - Previously on Bystolic, stopped on recent admission to [facility] for unclear reasons. Now on Cardizem. 7. PMR - continue Prednisone. 8. Normocytic Anemia sec to chronic disease, Iron Sat 17% (borderline), B12 level 681, Folate 9. No evidence of active GI blood loss. Iron supplementation ongoing. Had prior Colonoscopy showing multiple polyps. For discussion of further Ix as out-patient with GI. 9. AV Stenosis s/p TAVR - previously on BB, now stopped. Repeat Echo findings above. 10. 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 No evidence of acute exacerbation. CXR - questionable infiltrate L base. No clear signs of infection - no cough/sputum/ fevers/leukocytosis. Pulm evaluated - no recommendation for Rx/Abx. 11. RUL Lung Mass, increasing in size on repeat CT Chest. Findings suspicious for malignancy. Further management as per Pulm. 12. CICI - resolved 13. UTI - Urine Cx - Klebsiella. Afebrile. Day 3 Ceftriaxone. Afebrile, Hemodynamically Stable. Renal US - no hydronephrosis/obstruction. DVT Px - on Coumadin.
[2019-05-05] MEDS ORDERED: WARFARIN NA 5 MG TABLET (UD) PO ONE (18:00)
[2019-05-05] MEDS ORDERED: SENNOSIDES 8.6MG TABLET (FP) PO ONE (20:44)
[2019-05-05] MEDS: ATORVASTATIN CA 20 MG TABLET (FP) PO SCH (21:51)
[2019-05-06] MEDS: dilTIAZem HCL 30 MG TABLET (FP) PO SCH ×4 (00:22→17:02)
[2019-05-06] MEDS: predniSONE 10 MG TABLET (UD) PO SCH (06:16)
[2019-05-06 07:02] LABS: INR 3.97 (0.83-1.09); PROTHROMBIN TIME (PATIENT) 47.5 SEC (9.7-13.0)
[2019-05-06] MEDS ORDERED: LACTOBACILLUS ACIDOPHILUS 1 TABLET PO SCH (10:00)
[2019-05-06] MEDS ORDERED: REGADENOSON 0.4 MG/5 ML PRE-FILLED SYRINGE IVPUSH ONE ×2 (10:35→11:00)
[2019-05-06] MEDS ORDERED: cefTRIAXone SODIUM 1 GM VIAL ONE (13:37)
[2019-05-06] MEDS ORDERED: DEXTROSE 5%-WATER - 50 ML IVPB ONE (13:37)
--- NOTE | 2019-05-06 13:47 | PN ---
Progress Note (short form) - Note Progress Note: PULMONARY Denies shortness of breath, cough or wheezing. Vital Signs Period Temp Pulse Resp BP Sys/Scott Pulse Ox Last 24 Hr 97.7 F-98.3 F 64-78 18-20 108-144/52-76 97 Gen: NAD at rest Heart: RRR Lung: decreased breath sounds at the bases Abd: soft, nontender Ext: no edema CBC, BMP 05/05/19 09:23 05/05/19 09:23 Active Medications Artificial Tears (Artificial Tears) 1 drop OU BID PRN PRN Reason: DRY EYES Aspirin (Ecotrin -) 81 mg PO DAILY [facility] Last Admin: 05/05/19 10:12 Dose: 81 mg Atorvastatin Calcium (Lipitor -) 20 mg PO HS [facility] Last Admin: 05/05/19 21:51 Dose: 20 mg Benzocaine/Menthol (Cepacol Lozenge -) 1 each MM QID [facility] Last Admin: 05/05/19 21:53 Dose: Not Given Cholecalciferol (Vitamin D3 -) 1,000 unit PO DAILY [facility] Last Admin: 05/05/19 10:11 Dose: 1,000 unit Clonazepam (Klonopin -) 0.5 mg PO BID [facility] Last Admin: 05/05/19 21:52 Dose: 0.5 mg Diltiazem HCl (Cardizem -) 30 mg PO Q6HPO [facility] Last Admin: 05/06/19 06:15 Dose: Not Given Docusate Sodium (Colace -) 100 mg PO BID [facility] Last Admin: 05/05/19 21:52 Dose: 100 mg Donepezil HCl (Aricept -) 5 mg PO DAILY [facility] Last Admin: 05/05/19 10:11 Dose: 5 mg Ferrous Sulfate (Feosol -) 325 mg PO BIDWM [facility] Last Admin: 05/05/19 17:51 Dose: 325 mg Diltiazem HCl 125 mg/ Sodium (Chloride) 125 mls @ 5 mls/hr IVPB TITR JOSELINE; Protocol Last Admin: 05/02/19 02:34 Dose: Not Given Ceftriaxone Sodium 1 gm/ (Dextrose) 50 mls @ 200 mls/hr IVPB DAILY [facility]; Protocol Last Admin: 05/05/19 10:10 Dose: 200 mls/hr Lactobacillus Acidophilus (Bacid -) 1 tab PO BID JOSELINE Levalbuterol HCl (Xopenex) 0.31 mg IH Q8H PRN PRN Reason: ASTHMA Memantine (Namenda -) 5 mg PO DAILY [facility] Last Admin: 05/05/19 10:14 Dose: 5 mg Prednisone (Deltasone -) 15 mg PO AM [facility] Last Admin: 05/06/19 06:16 Dose: Not Given A/P Acute Hypoxic Respiratory Failure Atrial Fibrillation with RVR COPD Interstitial Lung Disease Lung Mass CAD +Troponins likely Demand Ischemia Acute on Chronic Systolic Heart Failure Aortic Stenosis s/p AVR Polymyalgia Rheumatica Anemia Dementia - rate control - inhaled bronchodilators - O2 to keep Spo2 >90% - f/u stress test - consider CT guided biopsy when cardiac status stable
[2019-05-06] MEDS: DOCUSATE SODIUM 100 MG CAPSULE (FP) PO SCH (13:54)
[2019-05-06] MEDS: MEMANTINE HCL 5 MG TABLET (UD) PO SCH (13:55)
[2019-05-06] MEDS: CHOLECALCIFEROL (VIT D3) 1,000 UNIT (25 MCG) TABLET PO SCH (13:55)
[2019-05-06] MEDS: clonazePAM 0.5 MG TABLET PO SCH (13:55)
[2019-05-06] MEDS: DONEPEZIL HCL 5 MG TABLET (FP) PO SCH (13:55)
[2019-05-06] MEDS: CEFTRIAXONE 1 GM in DEXTROSE 5%-WATER - 50 ML IVPB SCH (13:56)
[2019-05-06] MEDS: ASPIRIN COATED 81 MG TABLET.EC PO SCH (13:56)
[2019-05-06] MEDS: BENZOCAINE/MENTH/CETYLPYRD CL 1 EACH LOZENGE MM SCH ×3 (13:56→17:02)
[2019-05-06] MEDS: FERROUS SO4 325 MG TABLET (FP) PO SCH ×2 (14:00→17:02)
[2019-05-06] MEDS ORDERED: MAG HYDROX/AL HYDROX/SIMETH 30 ML UNIT-DOSE CUP PO ONE (14:48)
--- NOTE | 2019-05-06 16:51 | PN ---
Physical Exam: SUBJECTIVE: Patient seen and examined at the bedside. States that he is feeling better and is unsure of why he is in the hospital. Mild confused and has tangential speech. At times irritated with the examiner. Denies cp, sob, abd pain, n/v/c/d, fever, chills, numbness, tingling, weakness. OBJECTIVE: Vital Signs Period Temp Pulse Resp BP Sys/Scott Pulse Ox Last 24 Hr 97.7 F-98.3 F 64-78 18-20 108-147/52-86 97 GENERAL: The patient is awake, alert, and oriented to self, location, year and month, in no acute distress. HEAD: Normal with no signs of trauma. EYES: PERRL, extraocular movements intact, sclera anicteric. ENT: Oropharynx clear without exudates, moist mucous membranes. NECK: Trachea midline, full range of motion, supple. LUNGS: Crackles noted in bilateral bases L>R, no wheezes, no accessory muscle use. HEART: Regular rate and rhythm, S1, S2 with systolic ejection murmur. ABDOMEN: Soft, nontender, nondistended, normoactive bowel sounds, no guarding, no rebound, no masses. EXTREMITIES: 1+ pulses, warm, well-perfused, no edema. NEUROLOGICAL: Cranial nerves II through XII grossly intact. 5/5 muscle strength upper and lower extremities, bilaterally. PSYCH: Normal mood and affect. SKIN: Warm, dry, normal turgor, scattered excoriations noted on bilateral lower legs. Laboratory Results - last 24 hr 05/06/19 06:30 PT with INR 47.50 H INR 3.97 H Active Medications Generic Name Dose Route Start Last Admin Trade Name Freq PRN Reason Stop Dose Admin Artificial Tears 1 drop 05/03/19 14:09 Artificial Tears OU BID PRN DRY EYES Aspirin 81 mg 05/03/19 10:00 05/06/19 13:56 Ecotrin - PO 81 mg DAILY JOSELINE Administration Atorvastatin Calcium 20 mg 05/02/19 22:00 05/05/19 21:51 Lipitor - PO 20 mg HS JOSELINE Administration Benzocaine/Menthol 1 each 05/02/19 14:00 05/06/19 14:00 Cepacol Lozenge - MM 1 each QID JOSELINE Administration Cholecalciferol 1,000 unit 05/03/19 10:00 05/06/19 13:55 Vitamin D3 - PO 1,000 unit DAILY JOSELINE Administration Clonazepam 0.5 mg 05/02/19 22:00 05/06/19 13:55 Klonopin - PO 0.5 mg BID JOSELINE Administration Diltiazem HCl 30 mg 05/02/19 12:00 05/06/19 13:55 Cardizem - PO 30 mg Q6HPO JOSELINE Administration Docusate Sodium 100 mg 05/02/19 22:00 05/06/19 13:54 Colace - PO 100 mg BID JOSELINE Administration Donepezil HCl 5 mg 05/03/19 10:00 05/06/19 13:55 Aricept - PO 5 mg DAILY JOSELINE Administration Ferrous Sulfate 325 mg 05/02/19 17:30 05/06/19 14:00 Feosol - PO 325 mg BIDWM JOSELINE Administration Diltiazem HCl 125 mg/ Sodium 125 mls @ 5 mls/hr 05/02/19 01:45 05/02/19 02:34 Chloride IVPB Not Given TITR JOSELINE Protocol 5 MG/HR Ceftriaxone Sodium 1 gm/ 50 mls @ 200 mls/hr 05/04/19 17:30 05/06/19 13:56 Dextrose IVPB 200 mls/hr DAILY JOSELINE Administration Protocol Lactobacillus Acidophilus 1 tab 05/06/19 10:00 05/06/19 13:54 Bacid - PO 1 tab BID JOSELINE Administration Levalbuterol HCl 0.31 mg 05/03/19 11:29 Xopenex IH Q8H PRN ASTHMA Memantine 5 mg 05/03/19 10:00 05/06/19 13:55 Namenda - PO 5 mg DAILY JOSELINE Administration Prednisone 15 mg 05/03/19 07:00 05/06/19 06:16 Deltasone - PO Not Given AM JOSELINE ASSESSMENT/PLAN: Saul Yeung is an 88 year old male with past medical history significant for Polymyalgia rheumatica, COPD, Aortic valve replacement, Afib (on Coumadin), LBBB , pacemaker, HTN, NPH, squamous cell carcinoma s/p Mohs surgery, prostate CA admitted for a fib with RVR. A fib with RVR - had Bystolic recently stopped on admission to [facility] - was given Lopressor 5mg 3x and digoxin 0.25mg and is currently rate controlled - troponemia 0.16-->1.14-->1.37-->0.94, likely in setting of afib and demand ischemia, continue to trend to peak, cautious observance and repeat EKG if new symptoms appear - cardiology consulted, recs appreciated - continue diltiazem 30mg q6h - will resume coumadin as per INR - continue to monitor BP, HR - BNP 2656, no evidence of heart failure - echo showing LV systolic function reduced EF 40-45%, moderate global hypokinesis of LV, normal RV, moderate mitral and tricuspid regurg, bioprosthetic aortic valve - MIBI showing small zone of anteroapical fixed defect compatible with soft tissue attenuation, moderate to severely reduced LV contraction estimated at 35 % post Lexiscan and 37% at rest - cardiology stated that patient can follow up for these findings in the outpatient clinic Infiltrate in LLL in setting of chronic interstitial lung disease and COPD - afebrile, no WBC - noted superimposed LLL infiltrate on CXR - pulm consult, recs appreciated - CT scan of the chest noting interval increase in size of mass lesion in the anterior medial aspect of RUL, suspicious for malignancy - can consider CT guided biopsy of mass if patient and family agreeable - inhalers prn, O2 as needed - continue home prednisone UTI - UA negative, Ucx positive for michelle-sensitive Klebsiella - continue ceftriaxone, can convert to PO upon discharge CICI - likely in the setting of poor oral intake and dehydration - baseline CRE 0.9-1.1 - resolved - noted L renal cyst, no hydronephrosis on U/S Weakness - physical therapy, requiring assistance and recommending SNF placement HTN - continue home medications - continue diltiazem HLD - continue home statin Dementia - continue home Namenda, Aricept, and clonazepam Normocytic Anemia - likely in the setting of chronic interstitial lung disease and chronic steroid use - anemia of chronic disease - continue iron supplementation FEN - no standing fluids to avoid overload - continue to monitor electrolytes and replete as necessary - sodium controlled diet Prophylaxis - on coumadin, dosing as per INR Dispo - continue to monitor on telemetry Visit type - Emergency Visit Emergency Visit: Yes ED Registration Date: 05/02/19 Care time: The patient presented to the Emergency Department on the above date and was hospitalized for further evaluation of their emergent condition. - New Patient This patient is new to me today: No - Critical Care Critical Care patient: No
--- NOTE | 2019-05-06 16:56 | PN ---
Progress Note (short form) - Note Progress Note: s: no cp sob palps dizzy Current Medications Artificial Tears (Artificial Tears) 1 drop OU BID PRN PRN Reason: DRY EYES Aspirin (Ecotrin -) 81 mg PO DAILY [facility] Last Admin: 05/06/19 13:56 Dose: 81 mg Atorvastatin Calcium (Lipitor -) 20 mg PO HS [facility] Last Admin: 05/05/19 21:51 Dose: 20 mg Benzocaine/Menthol (Cepacol Lozenge -) 1 each MM QID [facility] Last Admin: 05/06/19 14:00 Dose: 1 each Cholecalciferol (Vitamin D3 -) 1,000 unit PO DAILY [facility] Last Admin: 05/06/19 13:55 Dose: 1,000 unit Clonazepam (Klonopin -) 0.5 mg PO BID [facility] Last Admin: 05/06/19 13:55 Dose: 0.5 mg Diltiazem HCl (Cardizem -) 30 mg PO Q6HPO [facility] Last Admin: 05/06/19 13:55 Dose: 30 mg Docusate Sodium (Colace -) 100 mg PO BID [facility] Last Admin: 05/06/19 13:54 Dose: 100 mg Donepezil HCl (Aricept -) 5 mg PO DAILY [facility] Last Admin: 05/06/19 13:55 Dose: 5 mg Ferrous Sulfate (Feosol -) 325 mg PO BIDWM [facility] Last Admin: 05/06/19 14:00 Dose: 325 mg Diltiazem HCl 125 mg/ Sodium (Chloride) 125 mls @ 5 mls/hr IVPB TITR [facility]; Protocol Last Admin: 05/02/19 02:34 Dose: Not Given Ceftriaxone Sodium 1 gm/ (Dextrose) 50 mls @ 200 mls/hr IVPB DAILY [facility]; Protocol Last Admin: 05/06/19 13:56 Dose: 200 mls/hr Lactobacillus Acidophilus (Bacid -) 1 tab PO BID [facility] Last Admin: 05/06/19 13:54 Dose: 1 tab Levalbuterol HCl (Xopenex) 0.31 mg IH Q8H PRN PRN Reason: ASTHMA Memantine (Namenda -) 5 mg PO DAILY [facility] Last Admin: 05/06/19 13:55 Dose: 5 mg Prednisone (Deltasone -) 15 mg PO AM [facility] Last Admin: 05/06/19 06:16 Dose: Not Given Vital Signs Period Temp Pulse Resp BP Sys/Scott Pulse Ox Last 24 Hr 97.7 F-98.3 F 64-78 18-20 108-147/52-86 97 Constitutional: Yes: No Distress Cardiovascular: Yes: Regular Rate and Rhythm Respiratory: Yes: CTA Bilaterally Gastrointestinal: Yes: Soft (nt) Edema: No Neurological: Yes: Alert no jaundice diaphoresis not agitated - ....Imaging EKG: Image Reviewed Assessment/Plan echo 10/2017: nl lv/rv, nl bio avr, mild mr/tr/pr, mod phtn cxr: no chf, +ILD, +?pna ecg: afib with rvr, old lbbb mibi 04/2019 no ischemia, anteroapical fixed defect c/w soft tissue attenuation , mod to severely reduced LV function with EF 35% tele: sinus, PVCs a/p: 88 m hx pad (bl le dz), htn, hld, copd/ild, as s/p tavr 2016, cad s/p pci (2016 sophia mlad), ppm (Equiphon), afib/aflutter here with rvr. afib with rvr: -back in sr now -cont dilt for rate control, can change to long acting daily dosing on dc -cont coumadin per INR htn: -cont dilt as above, holding home bystolic hld: -cont home statin tavr: -echo w/ nl fxn prosthesis +trops, cad, hx pci: -trop mildly elevated here, trend is flat and coming down. Unlikely ACS, most likely from demand ischemia from presenting rvr/low bp. -Echo now shows moderate LV dysx new from 2017 which may be due to AF w/ RVR. Will need repeat echo as outpt to monitor for improvement -mibi shows moderately to severely reduced LV function with no ischemia - no further inpatient cardiac testing -cont ac, asa, statin ppm: -routine outpt checks
--- NOTE | 2019-05-06 17:13 | PN ---
Teaching Attending Note Name of Resident: Irving Soler ATTENDING PHYSICIAN STATEMENT I saw and evaluated the patient. I reviewed the resident's note and discussed the case with the resident. I agree with the resident's findings and plan as documented. SUBJECTIVE: Feels well, comfortable, no complaints. Nausea resolved, no vomiting. No fever/chills. OBJECTIVE: Afebrile, Hemodynamically Stable. AAO x 3. Bright, interactive. Last Vital Signs Temp Pulse Resp BP Pulse Ox 98.2 F 76 20 147/86 97 05/06/19 14:10 05/06/19 14:10 05/06/19 14:10 05/06/19 14:10 05/06/19 09:00 Heart - S1, S2, SM, irregular Lungs - clear to auscultation. Abdomen - Soft, non-tender. Bowel Sounds normal. Extremities - No edema, no calf tenderness, some abrasions. Neuro - AAO x 3. Tone/Power normal all extremities. Laboratory Results - last 24 hr 05/06/19 06:30 PT with INR 47.50 H INR 3.97 H Current Medications Generic Name Dose Route Start Last Admin Trade Name Freq PRN Reason Stop Dose Admin Artificial Tears 1 drop 05/03/19 14:09 Artificial Tears OU BID PRN DRY EYES Aspirin 81 mg 05/03/19 10:00 05/06/19 13:56 Ecotrin - PO 81 mg DAILY JOSELINE Administration Atorvastatin Calcium 20 mg 05/02/19 22:00 05/05/19 21:51 Lipitor - PO 20 mg HS JOSELINE Administration Benzocaine/Menthol 1 each 05/02/19 14:00 05/06/19 17:02 Cepacol Lozenge - MM 1 each QID JOSELINE Administration Cholecalciferol 1,000 unit 05/03/19 10:00 05/06/19 13:55 Vitamin D3 - PO 1,000 unit DAILY JOSELINE Administration Clonazepam 0.5 mg 05/02/19 22:00 05/06/19 13:55 Klonopin - PO 0.5 mg BID JOSELINE Administration Diltiazem HCl 30 mg 05/02/19 12:00 05/06/19 17:02 Cardizem - PO 30 mg Q6HPO JOSELINE Administration Docusate Sodium 100 mg 05/02/19 22:00 05/06/19 13:54 Colace - PO 100 mg BID JOSELINE Administration Donepezil HCl 5 mg 05/03/19 10:00 05/06/19 13:55 Aricept - PO 5 mg DAILY JOSELINE Administration Ferrous Sulfate 325 mg 05/02/19 17:30 05/06/19 17:02 Feosol - PO 325 mg BIDWM JOSELINE Administration Diltiazem HCl 125 mg/ Sodium 125 mls @ 5 mls/hr 05/02/19 01:45 05/02/19 02:34 Chloride IVPB Not Given TITR JOSELINE Protocol 5 MG/HR Ceftriaxone Sodium 1 gm/ 50 mls @ 200 mls/hr 05/04/19 17:30 05/06/19 13:56 Dextrose IVPB 200 mls/hr DAILY JOSELINE Administration Protocol Lactobacillus Acidophilus 1 tab 05/06/19 10:00 05/06/19 13:54 Bacid - PO 1 tab BID JOSELINE Administration Levalbuterol HCl 0.31 mg 05/03/19 11:29 Xopenex IH Q8H PRN ASTHMA Memantine 5 mg 05/03/19 10:00 05/06/19 13:55 Namenda - PO 5 mg DAILY JOSELINE Administration Prednisone 15 mg 05/03/19 07:00 05/06/19 06:16 Deltasone - PO Not Given AM [facility] Home Medications Medication Instructions Recorded predniSONE [Deltasone -] 15 mg PO AM 10/01/14 Atorvastatin Ca [Lipitor] 20 mg PO HS 03/25/16 Cholecalciferol (Vitamin D3) 1,000 unit PO DAILY 03/25/16 [Vitamin D3 -] Acetaminophen [Tylenol .Regular 650 mg PO Q6H PRN tablet 02/05/19 Strength -] Aspirin [Aspirin EC] 81 mg PO DAILY 05/01/19 Benzocaine/Menthol [Cepacol Sore 1 each MM QID 05/01/19 Throat Lozenge] Benzonatate 300 mg PO TID 05/01/19 Donepezil HCl [Aricept -] 5 mg PO DAILY 05/01/19 Memantine HCl [Namenda -] 5 mg PO BID 05/01/19 Warfarin Na [Coumadin -] 5 mg PO ASDIR 05/01/19 clonazePAM [Klonopin -] 0.5 mg PO DAILY 05/01/19 Docusate Sodium [Colace] 100 mg PO BID 05/02/19 Ferrous Sulfate 325 mg PO BID 05/02/19 Olanzapine 5 mg PO HS 05/04/19 Cefpodoxime Proxetil [Vantin -] 100 mg PO BID #8 tablet 05/06/19 Diltiazem [Cardizem -] 30 mg PO Q6HPO #30 tablet 05/06/19 Lactobacillus Acidophilus [Bacid -] 1 each PO BID #28 tab 05/06/19 Levalbuterol HCl [Xopenex] 0.31 mg IH Q8H PRN #1 vial.neb 05/06/19 ASSESSMENT AND PLAN: 88 year old male with history of PMR (on Prednisone), AV stenosis s/p TAVR, s/p AVR, Atrial fibrillation (on coumadin), LBBB, s/p PPM, HTN, HLD, PAD, Squamous Cell Ca s/p MOHS, Prostate Ca, sent to ED from [facility] with generalized weakness and RVR. Patient reports nausea, now resolved. Denies CP/palpitations/ lightheadedness. 1. Atrial fibrillation with RVR ECG - Atrial fibrillation with RVR Bystolic recently stopped. RVR resolved with Cardizem IV. Evaluated by Cardiology - recommend oral Diltiazem Normally on Coumadin, held again today due to supratherapeutic INR. 2. Systolic CHF - No evidence of decompensation ?related to RVR. Echo - Global Hypokinesis with EF 40-45%, moderate MR, bioprosthetic AV Evaluated by cardiology - recommend Kelli which shows small fixed apical defect, no reversible ischemia but EF 35-37%. Awaiting Cardiology clearance prior to transfer back to [facility]. 2. Troponin Egression secondary to demand ischemia due to RVR Peak TropI 1.37 No evidence of ACS as per Cardiology initially but now given Echo findings, recommendation for MPI by Cardio - shows no reversible ischemia. Continue ASA, Statin. 3. Spratherapeutic INR, recurrent Hold Coumadin. 4. HLD - normally on Lipitor. 5. Dementia with emotional lability - continue Namenda, Donepezil, Clonazepam. Previously on Zyprexa recommended by Psychiatry on last admission. 6. HTN - Previously on Bystolic, stopped on recent admission to [facility] for ?syncope. Now on Cardizem, tolerating well. 7. PMR - continue Prednisone. 8. Normocytic Anemia sec to chronic disease, Iron Sat 17% (borderline), B12 level 681, Folate 9. No evidence of active GI blood loss. Iron supplementation ongoing. Had prior Colonoscopy showing multiple polyps. For discussion of further Ix as out-patient with GI. 9. AV Stenosis s/p TAVR - previously on BB, now stopped. Repeat Echo findings above. 10. 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 No evidence of acute exacerbation. CXR - questionable infiltrate L base. No clear signs of infection - no cough/sputum/ fevers/leukocytosis. Pulm evaluated - no recommendation for Rx/Abx. 11. RUL Lung Mass, increasing in size on repeat CT Chest. Findings suspicious for malignancy. Further Ix/Management as per Pulm as out-patient 12. CICI - resolved 13. UTI - Urine Cx - Klebsiella. Afebrile. Day 4 Ceftriaxone. Afebrile, Hemodynamically Stable. Renal US - no hydronephrosis/obstruction. Can transition to oral cephalosporin on discharge. DVT Px - on Coumadin.
[2019-05-06 18:29] VITALS: BP 151/68; PULSE 79; TEMP 98.8
--- NOTE | 2019-05-06 19:14 | DS ---
Physical Exam: SUBJECTIVE: Patient seen and examined at the bedside. Patient was noted to be alert and oriented but had mild confusion and was irritated that he was still in the hospital and noted that he felt good. Denied cp, sob, abd pain, n/v/c/d, fever, chills, weakness, numbness, tingling, dizziness, lightheadedness. OBJECTIVE: Vital Signs Period Temp Pulse Resp BP Sys/Scott Pulse Ox Last 24 Hr 97.7 F-98.8 F 64-79 18-20 125-151/59-86 97-97 PHYSICAL EXAM GENERAL: The patient is awake, alert, and oriented to self, location, year and month, in no acute distress. HEAD: Normal with no signs of trauma. EYES: PERRL, extraocular movements intact, sclera anicteric. ENT: Oropharynx clear without exudates, moist mucous membranes. NECK: Trachea midline, full range of motion, supple. LUNGS: Crackles noted in bilateral bases L>R improved from previous examination , no wheezes, no accessory muscle use. HEART: Irregular rate and rhythm, S1, S2 with systolic ejection murmur. ABDOMEN: Soft, nontender, nondistended, normoactive bowel sounds, no guarding, no rebound, no masses. EXTREMITIES: 1+ pulses, warm, well-perfused, no edema. NEUROLOGICAL: Cranial nerves II through XII grossly intact. 5/5 muscle strength upper and lower extremities, bilaterally. PSYCH: Normal mood and affect. SKIN: Warm, dry, normal turgor, scattered excoriations noted on bilateral lower legs. LABS Laboratory Results - last 24 hr 05/06/19 06:30 PT with INR 47.50 H INR 3.97 H HOSPITAL COURSE: Saul Yeung is an 88 year old male with past medical history significant for Polymyalgia rheumatica, COPD, Aortic valve replacement, Afib (on Coumadin), LBBB , pacemaker, HTN, NPH, squamous cell carcinoma s/p Mohs surgery, prostate CA admitted for a fib with RVR. Patient presented with troponemia which as per cardio was deemed to be likely due to demand ischemia from afib with RVR. Patient was started on diltiazem 30mg q6h and coumadin was dosed as per INR. Echo was performed which showed LV systolic function reduced EF 40-45%, moderate global hypokinesis of LV, normal RV, moderate mitral and tricuspid regurg, bioprosthetic aortic valve. Cardiology recommended stress test which was performed and showed small zone of anteroapical fixed defect compatible with soft tissue attenuation, moderate to severely reduced LV contraction estimated at 35% post Lexiscan and 37% at rest. Cardiology noted that that patient does not need any further inpatient cardiac workup and can be discharged and must follow up with repeat echo. Patient had chest CT which noted interval increase in size of mass lesion in the anterior medial aspect of RUL, suspicious for malignancy. Family to make decision on whether or not to biopsy mass as outpatient. Family advised to follow up with pulmonary outpatient. Found with UTI and treated with ceftriaxone, will need to complete outpatient oral antibiotics. While patient was hospitalized had elevated INR and coumadin was held. Patient' s dose on day of discharged was held and patient to restart AC based upon INR to be performed at facility. During hospitalization, patient had anemia and with history of colonic polyps is to follow up with gastroenterology outpatient. Patient to complete outpatient antibiotics, start Bacid, start prn inhalers, and diltiazem and to follow up with PCP, cardiology, pulmonology, and gastroenterology. Family was advised of the plan, was in agreement, and reiterated the plan. Patient was discharged in stable medical condition. Date of Admission:05/02/19 Date of Discharge: 05/06/19 Minutes to complete discharge: 37 Discharge Summary Problems reviewed: Yes Reason For Visit: ACUTE KIDNEY INJURY,ACUTE ON CHRONIC CONGESTIVE Current Active Problems CHF (congestive heart failure) (Chronic) Condition: Stable - Instructions Diet, Activity, Other Instructions: You were admitted after you were found to have a fast heart rhythm that was because of your irregularly beating heart. You were given medications to slow down your heart rate and were in a normal heart rate during your hospital admission. You were seen by the general manager road production who recommended that you be started on diltiazem for your heart rate. You had an echocardiogram (ultrasound of the heart) which showed that your heart had reduced heart function, abnormally beating of the heart, and dysfunction with some of the heart valves of the heart. You had a stress test on your heart which showed some reduced function of your heart. You should follow up with a general manager road production in the outpatient clinic for repeat studies of your heart function. You were found to have some fluid in your lungs. You were seen by the engineering lab technician (lung doctor) who recommended that you have an inhaler as needed, use oxygen as needed. You had a CT scan of your chest performed which showed a mass in your lungs. Depending on your wishes and the wishes of your family, you can have a biopsy of the mass as an outpatient. You were found to have anemia (low blood counts) with deficiency of iron. Based upon your history of having polyps in your colon, you should follow up with a trolley collector (stomach, liver, intestine doctor) MEDICATIONS Do not take your Coumadin tonight 05/06/19. Recheck the INR blood test tomorrow on 05/07 and redose the Coumadin as your doctor prescribes. START to take diltiazem 30mg every 6 hours. START to take Vantin 100mg twice a day for 4 more days. You last dose of the antibiotic will be on Monday. START to take Bacid 1 tablet twice a day for 14 days. START to take levalbuterol Hcl 0.31mg inhaler every 8 hours as needed for shortness of breath. Please continue to take all of your home medications as prescribed. REFERRALS Please see your primary care physician, Dr. Willie Haro, within 1 week. Please see the cardiologlogist, Dr. Yosef Joseph, within 1 week. Please see the engineering lab technician, Dr. Iftikhar Clemente, within 1 week. Please see the trolley collector, Dr. Nelson England, within 1 week. SPECIAL INSTRUCTIONS You need to get an INR check the day after your discharge to determine whether or not to continue your warfarin. You will need to get repeat function tests of your heart with the general manager road production. Please follow up with them to schedule tests. If you have any symptoms of chest pain, worsening shortness of breath, fevers, palpitations, worsening cough, or any other general feelings of unwellness, please call 911 or go to your nearest emergency room. Referrals: Iftikhar Clemente MD [Staff Physician] - 1 Week Willie Haro MD [Primary Care Provider] - 1 Week Yosef Joseph MD [Staff Physician] - 1 Week Nelson England MD [Staff Physician] - 1 Week Disposition: HOME - Home Medications Comprehensive Discharge Medication List: Ambulatory Orders predniSONE [Deltasone -] 15 mg PO AM 10/01/14 Atorvastatin Ca [Lipitor] 20 mg PO HS 03/25/16 Cholecalciferol (Vitamin D3) [Vitamin D3 -] 1,000 unit PO DAILY 03/25/16 Acetaminophen [Tylenol .Regular Strength -] 650 mg PO Q6H PRN tablet 02/05/19 Aspirin [Aspirin EC] 81 mg PO DAILY 05/01/19 Benzocaine/Menthol [Cepacol Sore Throat Lozenge] 1 each MM QID 05/01/19 Benzonatate 300 mg PO TID 05/01/19 Donepezil HCl [Aricept -] 5 mg PO DAILY 05/01/19 Memantine HCl [Namenda -] 5 mg PO BID 05/01/19 clonazePAM [Klonopin -] 0.5 mg PO DAILY 05/01/19 Docusate Sodium [Colace] 100 mg PO BID 05/02/19 Ferrous Sulfate 325 mg PO BID 05/02/19 Olanzapine 5 mg PO HS 05/04/19 Cefpodoxime Proxetil [Vantin -] 100 mg PO BID #8 tablet 05/06/19 Diltiazem [Cardizem -] 30 mg PO Q6HPO #30 tablet 05/06/19 Lactobacillus Acidophilus [Bacid -] 1 each PO BID #28 tab 05/06/19 Levalbuterol HCl [Xopenex] 0.31 mg IH Q8H PRN #1 vial.neb 05/06/19 Warfarin Na [Coumadin -] 5 mg PO ASDIR #1 tab 05/06/19 Problem List - Problems (1) CHF (congestive heart failure) Code(s): I50.9 - HEART FAILURE, UNSPECIFIED (2) CICI (acute kidney injury) Code(s): N17.9 - ACUTE KIDNEY FAILURE, UNSPECIFIED (3) Acute hypoxemic respiratory failure Code(s): J96.01 - ACUTE RESPIRATORY FAILURE WITH HYPOXIA (4) Atrial fibrillation with RVR Code(s): I48.91 - UNSPECIFIED ATRIAL FIBRILLATION (5) Elevated troponin Code(s): R79.89 - OTHER SPECIFIED ABNORMAL FINDINGS OF BLOOD CHEMISTRY (6) COPD (chronic obstructive pulmonary disease) Code(s): J44.9 - CHRONIC OBSTRUCTIVE PULMONARY DISEASE, UNSPECIFIED (7) Hypertension Code(s): I10 - ESSENTIAL (PRIMARY) HYPERTENSION Qualifiers: Hypertension type: essential hypertension Qualified Code(s): I10 - Essential (primary) hypertension (8) Polymyalgia rheumatica Code(s): M35.3 - POLYMYALGIA RHEUMATICA (9) Pulmonary fibrosis Code(s): J84.10 - PULMONARY FIBROSIS, UNSPECIFIED (10) Agitation Code(s): R45.1 - RESTLESSNESS AND AGITATION (11) Altered mental status Code(s): R41.82 - ALTERED MENTAL STATUS, UNSPECIFIED This patient is new to me today: No Emergency Visit: Yes ED Registration Date: 05/02/19 Care time: The patient presented to the Emergency Department on the above date and was hospitalized for further evaluation of their emergent condition. Critical Care patient: No - Discharge Referral Referred to [facility] No
== END 2019-05-06 20:31 | disposition home or self-care (01) | DRG 308 ==
LOC: JER 20:53 → JERBED 05-02 00:02 → J4W 05-02 15:27
PROVIDERS: ADMIT Internal Medicine
DX: I48.91 Unspecified atrial fibrillation (principal); J96.01 Acute respiratory failure with hypoxia; N17.9 Acute kidney failure, unspecified; I24.8 Other forms of acute ischemic heart disease; N39.0 Urinary tract infection, site not specified; I13.0 Hypertensive heart and chronic kidney disease with heart failure and stage 1 through stage 4 chronic kidney disease, or unspecified chronic kidney disease; I50.22 Chronic systolic (congestive) heart failure; F03.91 Unspecified dementia, unspecified severity, with behavioral disturbance; J84.9 Interstitial pulmonary disease, unspecified; J44.9 Chronic obstructive pulmonary disease, unspecified; I48.92 Unspecified atrial flutter; N18.9 Chronic kidney disease, unspecified; B96.1 Klebsiella pneumoniae [K. pneumoniae] as the cause of diseases classified elsewhere; M35.3 Polymyalgia rheumatica; I44.7 Left bundle-branch block, unspecified; R94.31 Abnormal electrocardiogram [ECG] [EKG]; I25.10 Atherosclerotic heart disease of native coronary artery without angina pectoris; E86.0 Dehydration; R79.89 Other specified abnormal findings of blood chemistry; D63.8 Anemia in other chronic diseases classified elsewhere; I73.9 Peripheral vascular disease, unspecified; R91.8 Other nonspecific abnormal finding of lung field; Z85.46 Personal history of malignant neoplasm of prostate; Z79.01 Long term (current) use of anticoagulants; Z95.0 Presence of cardiac pacemaker; Z95.2 Presence of prosthetic heart valve; Z95.5 Presence of coronary angioplasty implant and graft
CPT/HCPCS: 36415; 71045-TC-FY; 71250-TC; 76775-TC; 76856-TC; 78452-TC; 80048; 80053; 80061; 80162; 81003; 82550; 83605; 83721; 83735; 83880; 84100; 84443; 84484; 85025; 85027; 85610; 85730; 86850; 86900; 86901; 87086; 87186; 93005; 93010; 93017; 93306-TC; 97162-GP; 99285-25; A9502; J2785; J7030